=== PATIENT | male | born 1960 | race Caucasian/White ===

== ENCOUNTER 2024-11-24 12:54 | Inpatient (IN) | payer OTHER, SELFPAY ==
[2024-11-24] VITALS (23 sets, daily range): BP systolic 120–158; BP diastolic 73–104; BMI 32.2; BMI 31.2
[2024-11-24 11:43] LABS: % Basophils 0.9 % (0-2); % Eosinophils 5.2 % (0-6); % Immature Granulocytes 0.3 % (0-0.5); % Lymphocytes 18.3 % (20.5-51.1); % Monocytes 8.4 % (1.7-9.3); % Neutrophils 66.9 % (42.2-75.2); Absolute Basophils 0.1 10^3/uL (0-0.2); Absolute Eosinophils 0.5 10^3/uL (0-0.7); Absolute Lymphocytes 1.7 10^3/uL (1.2-3.4); Absolute Monocytes 0.8 10^3/uL (0.1-0.6); Absolute Neutrophils 6.3 10^3/uL (1.4-6.5); Hematocrit 47.8 % (39.0-52.0); Hemoglobin 15.5 g/dL (13.0-18.0); Mean Corp Hgb Conc. 32.4 g/dL (33.0-37.0); Mean Corpuscular Hgb 28.9 pg (27.0-31.0); Mean Platelet Volume 11.2 fL (7.4-10.4); Nucleated Red Blood Cells % 0 % (-); Platelet Count 171 10^3/uL (130-400); Red Blood Cell Count 5.37 10^6/uL (4.70-6.10); Red Cell Dist. Width 14.6 % (11.5-14.5); White Blood Cell Count 9.3 10^3/uL (4.8-10.8)
--- NOTE | 2024-11-24 11:47 | ED.GENMED ---
History of Present Illness
General
Chief Complaint: Chest Pain
Source: patient
Exam Limitations: none
Time Seen by Provider: 11/24/24 11:36
History of Present Illness
History of Present Illness:
64yoM with a history of coronary artery disease s/p PCI in 2007, hypertension, hyperlipidemia, diabetes, obesity presenting via EMS for evaluation of chest pain. Patient was shoveling mulch this morning around 9 AM when he had a sudden onset of
central chest pain. He states it feels like he was kicked in the chest. He did have some associated coughing. He denies any associated diaphoresis, nausea, dizziness, syncope, shortness of breath. Patient received aspirin and 3 doses of
nitroglycerin prehospital. Symptoms now mostly resolved but he continues to have a minor chest pressure.
Phy Exam
General Physical Exam
General Presentation: well appearing and no apparent distress
General age: appears stated age
General Skin: warm and dry
General Habitus: normal
General Mental: alert
ENT Exam
ENT Exam: normocephalic
Cardiovascular Exam
Cardiovascular Exam: regular rate/rhythm, no edema, no murmur and normal peripheral pulses (2+ radial and DP pulses bilaterally)
Pulmonary Exam
Pulmonary Exam: lungs clear, no respiratory distress, no rales, no crackles and no rhonchi
Neurological Exam
Neurological Exam: alert
Rifle Coma Scale
Eye Opening: Spontaneous
Verbal Response: Oriented
Motor Response: Obeys Commands
GCS Total Score: 15
Skin Exam
Skin Exam: normal color and warm/dry
Psychiatric Exam
Psychiatric Exam: normal mood/affect
Scores
Heart Score for Chest Pain Patients
STEMI patient?: No
History: Highly Suspicious
ECG: Significant ST-Depression
Age: >/= 65 years
Risk Factors: >/= 3 Risk Factors or History of CAD
Troponin: >1 - <3 x Normal Limit
Heart Score for Chest Pain Patients: 9
Heart Score Risk: 72.7 % MACE over next 6 weeks
Course
Orders/Labs/Results
Orders:
Orders
11/24/24 11:29
Electrocardiogram (*1) Urgent
Reason for Study: Chest Pain
Cardiac Monitoring- Treatment ONCE
EKG- Treatment ONCE
IV Insert/Care/Rem.- Treatment PRN
O2 Therapy [RESP] Urgent
Titrate/Wean O2 to maintain O2 sat greater than (%): 90
Special Instructions: Maintain sats >/=90%
Pulse Ox/spot Check [RESP] Urgent
Quantity: 1
Special Instructions: ON ROOM AIR
11/24/24 11:31
Complete Blood Count/With Diff Urgent
Comprehensive Metabolic Panel Urgent
Glycohemoglobin (HgbA1c) Urgent
NT-proBNP Urgent
Comment: ADD ON
Troponin I Urgent
11/24/24 11:46
CR Chest Portable - 1 View Urgent
Comment:
Reason For Exam: CP
Reason Study Needs to be Portable: Unable to Transport
11/24/24 11:50
Heparin 4,000 units IV NOW STA
Heparin Protocol- PTT Orders As Directed
PTT per Heparin protocol: -Obtain CBC and baseline PTT - if not already collected.
-Obtain PTT 6 hours from start of infusion. Then, every 6 hours until 2 consecutive
PTT's are therapeutic. Then, PTT Daily.
-With each rate change, obtain PTT every 6 hours until 2 consecutive PTT's are
therapeutic. Then, PTT Daily.
Notify MD As Directed
Notify physician if: PTT is greater than or equal to 200.
11/24/24 11:51
CARDIOLOGY CONSULT Urgent
Consulting Provider: Amrit Garcia
Was physician already notified: Yes
Nitroglycerin Sublingual [Nitrostat (Sublingual)] 0.4 mg SL [id number] PRN
11/24/24 11:56
PTT Urgent
Comment: Obtain baseline before beginning heparin infusion if not already collected
11/24/24 12:00
Heparin 5,000 units .ROUTE .STK-MED ONE
Heparin 83123 Units/250 ml 25,000 units in 250 ml .ROUTE .STK-MED
Heparin 63875 Units/250 ml 25,000 units in 250 ml IV PER PROTOCOL
Weight to be used for heparin protocol in kilograms (kg):: 107.7
Protocol:: Cardiac Tx/Acute Coronary
PTT Goal Range to be used:: PTT 73 to 111 seconds
Order type:: Initial
INITIAL Infusion Dose (UNITS/KG/hr) & then follow protocol:: 12 units/kg/hr
Infusion Dose in UNITS/hr & then follow protocol (UNITS/hr):: 1,000
INFUSION RATE in mL/hr & then follow protocol (mL/hr):: 10
PTT less than or equal to 64 seconds:: Increase rate by 200 units/hr (+ 2 mL/hr)
PTT 64.1 to 72.9 seconds:: Increase rate by 100 units/hr (+ 1 mL/hr)
PTT 73 to 111 seconds:: Target Range. No change in rate.
PTT 111.1 to 130.9 seconds:: Decrease rate by 100 units/hr (- 1 mL/hr)
PTT 131 to 199.9 seconds:: HOLD for 1 hr. Then decrease rate by 200 units/hr (- 2 mL/hr)
PTT greater than or equal to 200 seconds:: HOLD for 2 hrs & Notify Provider. Then decrease by 200 units/hr (-
2 mL/hr)
Lab follow-up:: Each change, PTT q6h until 2 consecutive are therapeutic. Then PTT
daily.
11/24/24 12:07
EKG [Electrocardiogram (*1)] Stat
Reason for Study: Chest Pain
11/24/24 12:09
Records Request [Obtain Records] As Directed
Dates of Information to be Released: Most recent
Type of Information Requested: ECG/Cardiology Results
Last Office Visit H&P
Obtain Records from: Dr. Fonseca
11/24/24 12:17
Heparin 1000 Units/500 ml [Heparin] 1,000 units in 500 ml .ROUTE .STK-MED
Heparin Sodium,Porcine/Ns/Pf [Heparin 2000 Units/1000 ml] 2,000 unit in 1,000 ml .ROUTE .STK-MED
Lidocaine HCl/Pf [Xylocaine-Mpf 1% Vial] 100 mg .ROUTE .STK-MED ONE
Nitroglycerin [Tridil] 1,500 mcg .ROUTE .STK-MED ONE
Verapamil Injectable [Isoptin/Verapamil Injection] 5 mg .ROUTE .STK-MED ONE
11/24/24 12:18
Add On- LAB Routine
Tests Added?: Hgba1c
11/24/24 12:27
0.9% Sodium Chloride 500 ml [Nss] 500 ml IV BOLUS
Fentanyl Citrate/Pf [Sublimaze] 100 mcg .ROUTE .STK-MED ONE
Heparin 10,000 units .ROUTE .STK-MED ONE
Midazolam HCl [Versed] 2 mg .ROUTE .STK-MED ONE
11/24/24 12:30
Admit/Transfer Patient As Directed
Co-Sign Provider:
Level of Care: Inpatient admission
Assign to:: Telemetry
Physician / Group: maribel
Diagnosis: chest pain
Reason for Telemetry: Chest Pain syndromes
Date to Stop Telemetry: 11/26/24
Time to Stop Telemetry: 11:00
Reason for Hospitalization: chest pain
Expected length of stay greater than two midnights?: Yes
ELOS- Estimated Length of Stay in days: 3
I certify the patient meets the requirements for IP care: Yes
PRN Pain Medication Management As Directed
May give lesser potent ordered pain med per pt: Yes
preference::
Protocol:: Medication orders for pain may be administered in a
manner that supports deferring to patient preference
when the pt is:
- Requesting an ordered lesser potent pain medication.
Least to most potent pain medications are defined
as: acetaminophen < NSAID < tramadol < opioids
(morphine, oxycodone, hydromorphone).
- Requesting a lesser dose of the same medication IF
ORDERED.
- Requesting a less intrusive route of administration
if both routes are prescribed by the provider (PO <
IV).
11/24/24 12:31
Code Status As Directed
Resuscitation Status: Full Code
11/24/24 18:00
PTT Urgent
11/26/24 06:00
Complete Blood Count/No Diff Q2D
Comment: Notify MD if platelet count is <130,000 or decreases by 50% from baseline
11/26/24 11:00
DC Protocol for Telemetry ONCE
11/28/24 06:00
Complete Blood Count/No Diff Q2D
Comment: Notify MD if platelet count is <130,000 or decreases by 50% from baseline
11/30/24 06:00
Complete Blood Count/No Diff Q2D
Comment: Notify MD if platelet count is <130,000 or decreases by 50% from baseline
12/02/24 06:00
Complete Blood Count/No Diff Q2D
Comment: Notify MD if platelet count is <130,000 or decreases by 50% from baseline
12/04/24 06:00
Complete Blood Count/No Diff Q2D
Comment: Notify MD if platelet count is <130,000 or decreases by 50% from baseline
12/06/24 06:00
Complete Blood Count/No Diff Q2D
Comment: Notify MD if platelet count is <130,000 or decreases by 50% from baseline
12/08/24 06:00
Complete Blood Count/No Diff Q2D
Comment: Notify MD if platelet count is <130,000 or decreases by 50% from baseline
12/10/24 06:00
Complete Blood Count/No Diff Q2D
Comment: Notify MD if platelet count is <130,000 or decreases by 50% from baseline
Abnormal Lab Results
11/24/24
11:31
MCHC 32.4 L g/dL
(33.0-37.0)
RDW 14.6 H %
(11.5-14.5)
MPV 11.2 H fL
(7.4-10.4)
Absolute Monos (auto) 0.8 H 10^3/uL
(0.1-0.6)
Lymphocytes % 18.3 L %
(20.5-51.1)
Chloride 109 H mmol/L
(98-107)
Creatinine 1.4 H mg/dL
(0.7-1.3)
Glucose 186 H mg/dl
(70-99)
Troponin I 0.040 H* ng/ml
11/24/24 11:31
11/24/24 11:31
Vital Signs
Initial and Last Documented VS:
Initial Vital Signs
Pulse Resp Pulse Ox
107 26 92
11/24/24 11:30 11/24/24 11:30 11/24/24 11:30
Last Documented Vital Signs
Temp Pulse Resp BP Pulse Ox
97.5 F 109 26 146/104 96
11/24/24 11:33 11/24/24 11:33 11/24/24 11:33 11/24/24 11:33 11/24/24 11:35
MDM/Problems Addressed
Differential Diagnosis Includes:
64yoM here with chest pain that began while doing yard work this morning. Described as feeling like he was kicked in the chest. Now improved after nitro x3 prehospital. Hx of CAD s/p PCI. He is mildly hypertensive with HR of 107 on arrival. He
appears comfortable in no distress. Equal pulses in all extremities. Differential diagnosis includes but is not limited to: ACS, accelerated angina, less likely PE
Initial ED plan: EKG on arrival shows ST/T wave changes in inferolateral leads. This was immediately sent to cardiology for review. Labs and CXR ordered per protocol.
*EKG
Interpreted by ED Provider?: Yes
EKG Intrepretation Date: 11/24/24
Heart Rate: 108
Rate: tachycardiac
Rhythm: sinus and PVC's
Clyde: normal axis
Interval: first degree heart block
Ischemia: non-specific ST changes (ST/T wave changes in inferolateral leads)
*Critical Care Note
Total Time (30-74mins, 75-104mins- exclusive of procedures): Not Applicable
Update Note
Update Note:
Troponin elevated at 0.04. Patient seen by cardiology and initiated on heparin drip. Patient transported to the geoscience laboratory technician for urgent catheterization.
ED Attending Note
-
Portions of this chart may have been created with voice recognition software.� Occasional wrong word or��sound alike� substitutions may have occurred due to the inherent limitations of voice recognition software.
Discharge Plan
Departure
Patient Disposition: Admit
Date of Disposition: 11/24/24
Time of Disposition: 12:10
Presentation/result/management discussed w/ accepting MD/DO: Hospitalist
Discharge Problem:
NSTEMI (non-ST elevated myocardial infarction)
Interventions
Interventions:
*Risk Screen - Suicide Last Done: 11/24/24 11:30
*General Assessment Last Done: 11/24/24 11:30
*Neglect/Abuse Screening Last Done: 11/24/24 11:30
*ED- Fall Risk Assessment Last Done: 11/24/24 11:34
*ED COVID-19 Vaccine History Last Done: 11/24/24 11:34
ED- Cardiac Assessment Last Done: 11/24/24 11:34
[2024-11-24 11:57] LABS: Glucose 186 mg/dl (70-99)
[2024-11-24 11:58] LABS: ALT (SGPT) 20 U/L (0-50); AST (SGOT) 18 U/L (17-59); Albumin 3.8 g/dl (3.5-5.0); Alkaline Phosphatase 105 U/L (38-126); Blood Urea Nitrogen 16 mg/dl (9-20); Calcium 9.8 mg/dl (8.4-10.2); Carbon Dioxide 24 mmol/L (22-30); Chloride 109 mmol/L (98-107); Estimated Creatinine Clearance 66 ml/min; Potassium 4.9 mmol/L (3.5-5.1); Sodium 142 mmol/L (135-145); Total Protein 6.3 g/dl (6.3-8.2); eGFR 55.43
[2024-11-24] MEDS: HEPARIN 4000 UNITS IV (12:02)
[2024-11-24] MEDS: HEPARIN 25000 UNITS/250 ML IV ×2 (12:08→19:51)
--- NOTE | 2024-11-24 12:11 | CON.CAR ---
Addendum entered and electronically signed by Amrit Garcia MD 11/24/24 14:14:
I saw and examined the patient.
The CUSTOM FEED CORN OPERATOR's note was reviewed and I agree with the note.
Comment: 64-year-old male (known to Dr. Fonseca, his primary towel stretcher), with CAD (STEMI with BMS to pRCA 2007), cardiomyopathy (ischemic versus mixed), [employer] ICD, hypertension, dyslipidemia, type 2 diabetes mellitus, CKD, and
hypothyroidism, who presented to the emergency department the chief complaint of chest pain. \\
- symptoms concerning for angina will plan for coronary angiography
Original Note:
Consultation
Consultation Request
Date/Time Consultation Requested: 11/24/2024 11:51
Date/Time Consultation Performed: 11/24/2024 12:00
Requesting Provider: Venessa Padgett PA-C
Performing Provider: OLIVIA Villarreal for Dr. Garcia
Reason for Consultation: Chest pain
Medical History
-
Chief Complaint: Chest pain
History of Present Illness:
Gabino Anderson is a 64-year-old male (known to Dr. Fonseca, his primary towel stretcher), with CAD (STEMI with BMS to pRCA 2007), cardiomyopathy (ischemic versus mixed), [employer] ICD, hypertension, dyslipidemia, type 2 diabetes mellitus,
CKD, and hypothyroidism, who presented to the emergency department the chief complaint of chest pain. He woke up in his usual state of health. He was picking up bags of mulch this morning when he had the sudden onset of severe chest discomfort.
He felt like he was 'kicked in the chest by a donkey'. He felt the need to sit down. He denies associated dizziness, diaphoresis, and nausea. The discomfort did not radiate, it remained midsternal and anterior. EMS was called. He received
aspirin and 3 doses of sublingual nitroglycerin prehospital. EKG in the emergency room showed lateral ST abnormality with IVCD. He was given a heparin bolus and started on a drip.
Records been requested by his primary towel stretcher.
Past Medical History
Past Medical History: Arrhythmias (VT (post STEMI, 2007)), CAD, CHF, HTN, Hypercholesterolemia, Hypothyroidism, NIDDM and Renal Failure (CKD)
Past Surgical History: Orthopedic
Social History
Tobacco: Non-Smoker
Alcohol: None
Drug: None
Personal:
Living: With Family
Family History
Family History: Reviewed & Not Pertinent
Allergies / Home Medications
Allergy/AdvReac Type Severity Reaction Status Date / Time
No Known Drug Allergies Allergy Unknown Verified 06/22/08 09:43
�Medication �Instructions �Recorded �Confirmed �Type
Motrin 2 - 3 tab PO PRN PAIN 06/22/08 06/22/08 History
atorvastatin 10 mg tablet (Lipitor) 10 mg PO DAILY 06/22/08 06/22/08 History
irbesartan 150 mg tablet 150 mg PO DAILY 06/22/08 06/22/08 History
levothyroxine 75 mcg tablet 75 mcg PO DAILY 06/22/08 06/22/08 History
(Synthroid)
Review of Systems
-
History Source: Patient
All other systems: Negative unless noted
Constitutional: No Symptoms
EENT: No Symptoms
Respiratory: No Symptoms
Cardiac: Chest Pain (See HPI)
Abdomen/GI: No Symptoms
: No Symptoms
Musculoskeletal: No Symptoms
Skin: No Symptoms
Neurological: No Symptoms
Endocrine: No Symptoms
Hematologic/Lymphatic: No Symptoms
Physical Exam
Vital Signs
Temp Pulse Resp BP Pulse Ox
97.5 F 109 26 146/104 96
11/24/24 11:33 11/24/24 11:33 11/24/24 11:33 11/24/24 11:33 11/24/24 11:35
Lab Results
11/24/24 11:31
11/24/24 11:31
Troponin I 0.040 ng/ml H* 04/22/25 11:31
Physical Exam
General: Well Developed, Well Nourished, No Apparent Distress and Comfortable
HEENT: Normocephalic, Anicteric and Moist Mucous Membranes
Respiratory: Clear and Non Labored Respirations
Cardiac: S1/S2 and Regular Rhythm (Tachycardia)
Breast: Deferred by me
GI: Soft, Non Tender, Non Distended and Normal Bowel Sounds
Rectal: Deferred by Provider
Genito-urinary: No Costovertebral Tender
Musculoskeletal: No Clubbing, No Cyanosis and No Edema
Skin: Warm and Dry
Neuro: AO x 3
Hematologic/Lymphatic: No Lymphadenopathy
Psych: Calm
Impression / Plan
-
I/P: 64M with CAD (STEMI with BMS to pRCA 2007), cardiomyopathy (ischemic versus mixed), [employer] ICD, hypertension, dyslipidemia, type 2 diabetes mellitus, CKD, and hypothyroidism, who presented to the emergency department the chief
complaint of chest pain.
Outpatient towel stretcher: Dr. Fonseca, records have been requested
NSTEMI
- Urgent cardiac catheterization
- EKG with lateral ischemia
- Heparin bolus with drip, ASA by EMS
- Fasting lipid panel in a.m., HgbA1c pending
- Defer P2Y12 to sales host
HFrEF, type unknown, EF unknown, chronic
- Suspect ischemic, could be mixed, LVEF was 45-50% in 2007 post STEMI
- He is not on the daily diuretic, reports stable weights but CXR with pronounced pulmonary vasculature
- GDMT as tolerated:
-FELA/ARB/ARNI: Entresto 97�103 mg
-SGLT2 inhibitor: Jardiance
-Aldosterone agonist: Can consider
-Beta adiel: Metoprolol tartrate, transition to succinate prior to discharge
-Isosorbide/Hydralazine:�
-ICD: Implanted ([employer])
- Trend daily weight, I/O
CAD
- BMS to pRCA (2007)
- Continue beta-adiel, aspirin, and statin
CKD
- Follow postcardiac catheterization dye
Uncontrolled type 2 diabetes mellitus with hyperglycemia
- Most recent HgbA1c greater than 8%, managed by his PCP
- Metformin on hold with cardiac catheterization
Ventricular tachycardia, post STEMI 2007, on beta-adiel
Dyslipidemia, goal LDL <55, fasting lipid panel in a.m.
[employer] ICD
Data Reviewed
-
EKG: Report Reviewed by me (As above)
Medical Tests (Nuc Med, Echo etc): Report Reviewed by me
Labs: Labs Reviewed by me
Old Records: Requested and Reviewed
--- NOTE | 2024-11-24 12:11 | HPS.HSE ---
Family Physician
-
Family Physician: OLIVIA Stoddard
Chief Complaint
-
mid sternum chest pain
History of Present Illness
64yoM with a history of coronary artery disease s/p PCI in 2007, hypertension, hyperlipidemia, diabetes, obesity presenting via EMS for evaluation of chest pain. Patient was moving and spreading mulch in his yard, when he felt mid sternum chest
pain. it was non radiating. he took nitro at home as well as on Ambulance. he does not have chest pain since then. patient denied sob. stated DE LEÓN after Nitro. denied dizzy or syncope.denied abdominal pain,n,v,d. denied fever, chills, cough
congestion.denied dysuria or hematuria. he took asa as well.
upon arrival noted to have ST elevation, elevated trop. heparin started in ER. plan for cardiac cath. admitting for further managment.
Medical History
Past Medical History
Past Medical History: Reports Other
Additional Past Medical History:
hypthyroidism
HTN
HLD
DM
CAD
Past Surgical History: Reports Other
Additional Past Surgical History:
AED
cardiac stents
shoulder surgery
Social History
Tobacco: Non-smoker
Alcohol: None
Drug: None
Personal:
Living: With Family
Family History
Family History: Not pertinent
Allergies / Home Medications
Allergies reflects when Allergies were last updated in [facility].
Home Medications with original date entered in [facility]
Allergy/Medication List:
Allergies
Allergy/AdvReac Type Severity Reaction Status Date / Time
No Known Drug Allergies Allergy Unknown Verified 06/22/08 09:43
Home Medications
Motrin 2 - 3 tab PO PRN PAIN 06/22/08
atorvastatin 10 mg tablet (Lipitor) 10 mg PO DAILY 06/22/08
irbesartan 150 mg tablet 150 mg PO DAILY 06/22/08
levothyroxine 75 mcg tablet (Synthroid) 75 mcg PO DAILY 06/22/08
Review of Systems
-
Constitutional: Reports No Symptoms
EENT: Reports No Symptoms
Respiratory: Reports No Symptoms
Cardiac: Reports Chest Pain
Abdomen/GI: Reports No Symptoms
: Reports No Symptoms
Musculoskeletal: Reports No Symptoms
Skin: Reports No Symptoms
Neurological: Reports No Symptoms
Endocrine: Reports No Symptoms
Hematologic/Lymphatic: Reports No Symptoms
Psych: Reports No Symptoms
Physical Exam
Vital Signs
Vital Signs
Temp Pulse Resp BP Pulse Ox
97.5 F 109 26 146/104 96
11/24/24 11:33 11/24/24 11:33 11/24/24 11:33 11/24/24 11:33 11/24/24 11:35
Physical Exam
General: Well Developed, Well Nourished and No Apparent Distress
HEENT: NormoCephalic, Moist mucous membranes and Atraumatic
Respiratory: Clear
Cardiac: S1/S2 and Regular Rhythm; No Murmur or Rub
GI: Soft, Non Tender, Non Distended and Normal Bowel Sounds; No Organomegaly
Rectal: Deferred by Provider
Musculoskeletal: No Clubbing, No Cyanosis and No Edema
Skin: No Rash
Neuro: AO x 3 and Nonfocal/grossly intact
Psych: Calm
Laboratory Results
-
11/24/24 11:31
11/24/24 11:31
Laboratory Results
Total Bilirubin 1.0 mg/dl (0.2-1.3) 11/24/24 11:31
AST 18 U/L (17-59) 11/24/24 11:31
ALT 20 U/L (0-50) 11/24/24 11:31
Alkaline Phosphatase 105 U/L (38-126) 11/24/24 11:31
Troponin I 0.040 ng/ml H* 11/24/24 11:31
Data Reviewed
-
Lab Data: Labs Reviewed by me
Impression/Plan
-
#chest pain possible NSTEMI
#tachycardia
#hxt of CAD s/p PCI in 2018
-EKG with ST elevations, sinus tachy with 1se degree A V block with occasional PVCs
-tro 0.04, trend trop
-heparin drip
-for cardiac cath today
-cardiology following
#acute kidney injury likely dehydration
-cr 1.4
-monitor BMP
-normal saline x1 bag
#type 2 DM
-sliding scale
-CHO diet
-hold metformin,Jardiance
#Essential HTN
#HLD
-statin continued
-metoprolol continued
-hold Entresto
#hypothyroidism
-levothyroxine continued
#DVT prophylaxis
-heparin drip
#CODE status
-full code
[2024-11-24 12:32] LABS: APTT 28.9 Sec (23.4-35.0)
--- NOTE | 2024-11-24 12:51 | W.PN.UPDATE ---
Update Note
Progress Note Update
This is an addendum to the H&P written by Yelena Weller on 11/24/2024.�
64-year-old male past medical history of CAD status post PCI in 2007, hypertension, hyperlipidemia, diabetes, obesity presenting with chest pain while shoveling mulch.� Symptoms mostly resolved now.
Vital signs normal apart from tachycardia
EKG shows sinus tachycardia with first-degree AV block, PVCs.� Troponin of 0.04.
Labs show creatinine of 1.4.
Patient with possible NSTEMI.� Also, with JESIKA possibly due to irbesartan/Motrin use.
Aspirin given by EMS.� Heparin drip started.� Trend troponins.� Nitroglycerin as needed.� Cardiology to take to catheterization today.� NPO.� Hold irbesartan.� Hold Motrin. IV fluid bolus.�
[2024-11-24 13:57] LABS: ACT-LR - POC 356 Seconds (116-155)
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
[2024-11-24 14:50] LABS: Glycohemoglobin (HgbA1c) 6.6 % (4.0-5.6)
[2024-11-24 14:53] LABS: NT-proBNP 3840 pg/ml
[2024-11-24 15:38] LABS: ACT-LR - POC 203 Seconds (116-155)
--- NOTE | 2024-11-24 15:44 | CARDSERVLU ---
Echocardiogram with Lumason completed after protocol screening completed. Allergies verified.
Patent IV site: _R forearm____
IV site flushed with 0.9% NaCl pre and post administration.
Diluted bolus method utilized to enhance visualization of ventricular gonzales.
Total volume given: __4__ mL
Patient tolerated all procedures well without complications.
[2024-11-24 16:38] LABS: ACT-LR - POC 165 Seconds (116-155)
[2024-11-24 17:00] LABS: Glucose - Point of Care 76 mg/dl (70-99)
[2024-11-24] MEDS: NOVOLOG FLEXPEN-LOW RESISTANCE SC (17:28)
--- NOTE | 2024-11-24 18:13 | ITS.CL.PN ---
Multiple Spindle Router Operator - Procedure Note
Procedure
Procedure Note:
CARDIAC CATHETERIZATION REPORT
Date of Procedure: 11/24/2024
Referring: Dr. Amrit Garcia MD
Indication: NSTEMI
PROCEDURE(S)
1. left heart catheterization
2. coronary angiography
3. iFR LCx
ACCESS:
1. 6F right radial artery (abandoned due to radial loop; closure: radial band)
2. 6F right common femoral artery (closure: 6F Angioseal after confirming appropriate DRYWALL METAL STUD WORKER stick location with hand injection angiography)
CATHETERS
1. 6F JR4
2. 6F JL4
3. 6F EBU4 guide
MODERATE SEDATION: 45 minutes of moderate sedation was utilized. An independent medical research tech was present to assist with and help manage the patient's level of consciousness and physiologic status.
HEMODYNAMIC DATA
LV 127/90 (EDP 26) mmHg
AO 128/88 (mean 105) mmHg
CORONARY ANGIOGRAPHY
Dominance: Right
LM: Large with minimal disease
LAD: Large vessel giving rise to a small D1, moderate caliber D2, and wrapping around the apex. There are serial subtotal occlusions just after D1 and after D2 with AURA I flow to the apex.
LCx: Large vessel giving rise to a large high rising OM1. The midportion of the larger branch of the OM1 has a focal 50% stenosis that was further assessed by iFR. There is also a small caliber OM2 with mild disease.
RCA: Large vessel giving rise to a moderate caliber RPDA and moderate caliber RPL branch. There is a stent in the mid RCA with focal 60% ISR and a smooth 40% stenosis in the distal RCA. The branch vessels have mild diffuse disease
iFR of OM1
An Omni wire was flushed and zeroed outside the body and then advanced to the left main. The wire introducer was removed and the catheter flushed with saline, after which pressure of the wire and guide were normalized. The wire was advanced to the
distal OM1 and iFR recorded at 0.88-0.89 on multiple measures. iFR pullback was performed noting a focal step up at the focal lesion site and then diffuse contribution from the proximal vessel. On return to the left main, iFR appropriately
normalized to ~1.0, confirming lack of wire drift.
RADIATION: dose 891 mGy; DAP 59.5 Gy*cm2; fluoroscopy time 13.9 min
CONCLUSIONS
1. Triple-vessel coronary artery disease with subtotally occluded LAD, likely customer support representative of a prior infarct, moderate serial RCA stenoses, and iFR positive stenosis in a large OM1. Given the patient's young age and diabetic status, surgical
revascularization may be preferable and he was taken off the table for CT surgical consultation. Percutaneous revascularization would be feasible and complete revascularization could be achieved percutaneously with moderate complexity.
2. Moderately elevated LV filling pressure and no aortic stenosis.
RECOMMENDATIONS
1. CT surgery consultation to determine optimal revascularization strategy
2. Echo in morning
3. Cont. asa, NO P2Y12 pending possible CT surgery
4. high intensity statin
5. can stop heparin drip after 48 hours
Copy to: Dr. Michael Fonseca DO (wind turbine service technician); OLIVIA Stoddard (PCP)
Signed: Adan Estes MD, PhD
--- NOTE | 2024-11-24 18:47 | PTCARENOTE ---
~1415: Received handoff report from [facility], awaiting transfer.
~6274-6592: patient transferred to IVU from [facility]. Admission questions completed. Pt AOx4, NSR 1st degree AVB on tele, 97% RA. R radial puncture site with TR band in place. R groin site with ART line and sheath remain. MAPs from ART and cuff correlate
and ART waveform appropriate. Pt denies pain at this time. Bed rest currently. EKG completed bedside. ACTs checked @ 1630 and was 203.
~4940-4429: Air removed from TR band per protocol. Discussed with Sondra Casas NP that Pt BP on ART line was SBP 140s-150s, but cuff pressures SBP 120s-130s, per SPORTS MARKETER we are going by cuff pressures and no other new orders at this time.
~7543-4856: 3 cc removed from TR band, no oozing or hematoma noted. ACT completed, result 165 at 1630. Request placed for CCL to pull sheath, awaiting response.
~1725: Sheath pulled by CCL nurse. 3 cc removed from TR band.
~1745: Hemostatis R groin achieved. Site soft CDI.
~1800: Went to remove TR band and noticed site was oozing a small amount, placed 3 cc back in band and will try again at 1830.
~1830: TR band removed. Dressing place, site soft no hematoma at this time. at bedside. All needs met at this time, call serrano within reach.
~1900: handoff report given to nightshift RN.
[2024-11-24 19:04] LABS: APTT 32.2 Sec (23.4-35.0)
[2024-11-24] MEDS: LOPRESSOR 50 MG PO (19:51)
--- NOTE | 2024-11-24 21:56 | PTCARENOTE ---
Received patient at change of shift. SR on the monitor, HR in the 70s. R radial and femoral dressings CDI. Heparin running as per protocol, see MAR. No complaints from pt at this time call serrano within reach.
[2024-11-24 22:32] LABS: Glucose - Point of Care 88 mg/dl (70-99)
[2024-11-25 00:43] VITALS: BP 143/87
[2024-11-25 02:19] VITALS: BP 144/95
[2024-11-25 03:06] LABS: INR 1.02; PT 13.7 Sec (11.4-14.6)
[2024-11-25 03:07] LABS: APTT 33.8 Sec (23.4-35.0)
[2024-11-25 03:18] LABS: ALT (SGPT) 19 U/L (0-50); AST (SGOT) 24 U/L (17-59); Albumin 3.8 g/dl (3.5-5.0); Alkaline Phosphatase 68 U/L (38-126); Blood Urea Nitrogen 14 mg/dl (9-20); Calcium 9.3 mg/dl (8.4-10.2); Carbon Dioxide 22 mmol/L (22-30); Chloride 111 mmol/L (98-107); Direct Bilirubin 0.2 mg/dl (0.0-0.4); Estimated Creatinine Clearance 70 ml/min; Glucose 92 mg/dl (70-99); HDL Cholesterol 24 mg/dl; LDL Cholesterol, Calculated 60 mg/dl; Potassium 4.1 mmol/L (3.5-5.1); Sodium 141 mmol/L (135-145); Total Bilirubin 1.5 mg/dl (0.2-1.3); Total Cholesterol 121 mg/dl (50-199); Triglyceride 187 mg/dl (10-149); Very Low Density Lipoprotein 37 mg/dl (0-30); eGFR > 60.00
[2024-11-25] MEDS: SYNTHROID 137 MCG PO (06:30)
[2024-11-25 07:59] LABS: Glucose - Point of Care 108 mg/dl (70-99)
[2024-11-25] MEDS: NOVOLOG FLEXPEN-LOW RESISTANCE SC ×3 (08:11→17:42)
[2024-11-25 08:12] VITALS: BP 147/98
[2024-11-25] MEDS: LOPRESSOR 50 MG PO ×2 (08:30→20:12)
[2024-11-25] MEDS: LIPITOR 80 MG PO (08:30)
[2024-11-25] MEDS: ASPIR LOW (ENTERIC COATED) 81 MG PO (08:30)
--- NOTE | 2024-11-25 09:17 | W.PN.CD ---
Today's Communication / Plan
-
CTS planning
cont meds
Impression / Plan
-
I/P: 64M with CAD (STEMI with BMS to pRCA 2007), cardiomyopathy (ischemic versus mixed), [employer] ICD, hypertension, dyslipidemia, type 2 diabetes mellitus, CKD, and hypothyroidism, who presented to the emergency department the chief
complaint of chest pain.
Outpatient guide winder: Dr. Fonseca, records have been requested
NSTEMI with multivessel CAD
- CTS consult; likely next week
- Heparin bolus with drip, ASA by EMS
- Fasting lipid panel in a.m., HgbA1c pending
HFrEF EF 20-25%
- Suspect ischemic, could be mixed, LVEF was 45-50% in 2007 post STEMI
- He is not on the daily diuretic, reports stable weights but CXR with pronounced pulmonary vasculature
- GDMT as tolerated:
-FELA/ARB/ARNI: Entresto 97�103 mg
-SGLT2 inhibitor: Jardiance
-Aldosterone agonist: Can consider after CTS
-Beta adiel: Metoprolol tartrate, transition to succinate prior to discharge
-Isosorbide/Hydralazine:�
-ICD: Implanted ([employer])
- Trend daily weight, I/O
CAD
- BMS to pRCA (2007)
- Continue beta-adiel, aspirin, and statin
CKD
- Follow postcardiac catheterization dye
Uncontrolled type 2 diabetes mellitus with hyperglycemia
- Most recent HgbA1c greater than 8%, managed by his PCP
- Metformin on hold with cardiac catheterization
Ventricular tachycardia, post STEMI 2007, on beta-adiel
Dyslipidemia, goal LDL <55, fasting lipid panel in a.m.
[employer] ICD
Coronary angiography November 24, 2024:
CONCLUSIONS
1. Triple-vessel coronary artery disease with subtotally occluded LAD, likely technical account representative of a prior infarct, moderate serial RCA stenoses, and iFR positive stenosis in a large OM1. Given the patient's young age and diabetic status, surgical
revascularization may be preferable and he was taken off the table for CT surgical consultation. Percutaneous revascularization would be feasible and complete revascularization could be achieved percutaneously with moderate complexity.
2. Moderately elevated LV filling pressure and no aortic stenosis.
TTE November 24, 2024: CONCLUSIONS
Moderately dilated LV with severely reduced systolic function.
LVEF is 20-25% by Lindsay's method of discs.
LAD territory hypo-/akinesis with global diffuse hypokinesis.
Stage I diastolic dysfunction suggestive of abnormal relaxation.
Normal right ventricular size and function.
No significant valvular disease.
Estimated pulmonary artery pressure of 25-30 mmHg. Assuming a right atrial
pressure of 3 mmHg.
Compared to prior from June 23, 2008, EF is now severely reduced at 20-25%,
previously normal, and with new wall motion abnormalities discussed above.
Physical Exam
Vital Signs/Labs
Vital Signs
Temp Pulse Resp BP Pulse Ox
97.6 F 84 18 147/98 95
11/25/24 08:10 11/25/24 08:30 11/25/24 08:10 11/25/24 08:30 11/25/24 08:10
11/24/24 11/25/24 11/26/24
06:59 06:59 06:59
Actual Weight 230 lb
11/25/24 02:44
PT 13.7 Sec (11.4-14.6) 11/25/24 02:44
INR 1.02 11/25/24 02:44
APTT 33.8 Sec (23.4-35.0) 11/25/24 02:44
APTT Cancelled 11/25/24 02:44
Triglycerides 187 mg/dl (10-149) H 11/25/24 02:44
LDL Cholesterol, Calc 60 mg/dl 11/25/24 02:44
VLDL Cholesterol, Calc 37 mg/dl (0-30) H 04/23/25 02:44
HDL Cholesterol 24 mg/dl 11/25/24 02:44
11/24/24
11:31
Aax-J-Umlvqfvmsls Pept 3840
LAB Results
11/24/24 11/24/24 11/24/24
11:31 15:37 18:46
Troponin I 0.040 H* 0.350 H* D 1.070 H* D
11/24/24 11/25/24
18:46 02:44
Troponin I Cancelled 1.380 H* D
Physical Exam
Constitutional: No acute distress and Comfortable
EENT: Anicteric
Cardiovascular: Rhythm & rate is regular and Pedal edema is absent
Respiratory: Respiratory effort normal and Lungs clear to auscul.
GI: Soft
Neuro/Psych: AO x 3
Data Reviewed
-
Date of Service: November 25, 2024
EKG: Tracing Personally Visualized and interpreted (sr)
Echo: Tracing Personally Visualized and interpreted and Report Reviewed by me
Labs: Labs Reviewed by me
[2024-11-25 11:06] LABS: Hematocrit 48.2 % (39.0-52.0); Hemoglobin 16.1 g/dL (13.0-18.0); Mean Corp Hgb Conc. 33.4 g/dL (33.0-37.0); Mean Corpuscular Hgb 28.9 pg (27.0-31.0); Mean Corpuscular Volume 86.5 fL (80.0-94.0); Mean Platelet Volume 11.1 fL (7.4-10.4); Platelet Count 167 10^3/uL (130-400); Red Blood Cell Count 5.57 10^6/uL (4.70-6.10); Red Cell Dist. Width 14.6 % (11.5-14.5); White Blood Cell Count 9.6 10^3/uL (4.8-10.8)
[2024-11-25 11:17] LABS: APTT 40.2 Sec (23.4-35.0)
[2024-11-25 11:27] VITALS: BP 131/86
[2024-11-25 11:29] VITALS: BP 145/94
--- NOTE | 2024-11-25 12:11 | W.PN.HOSP.TC ---
Today's Communication/Plan
-
pre-op testing and planning
continue IV heparin for now
Assessment / Plan
Assessment / Plan
Assessment:
Chest pain
NSTEMI with multivessel CAD
hx of CAD s/p PCI 2017
- trop peaked 1.38
- s/p LHC with triple vessel disease
- Cards following
- CT surgery evaluation; possible bypass planned pending OR availability. Pre-op testing under way
- continue IV heparin drip - requires intensive monitoring of PTTs
- continue ASA/BB/Statin
JESIKA
- resolved s/p 1 bag NSS
Type 2 DM
- holding Metformin/Jardiance
- continue SSI
- A1c: 6.6%
Essential HTN
- continue BP meds
HLD - statin
hypothyroidism
- levothyroxine
- CT with 8 mm L hemithyroid calcification. outpatient US.
DVT ppx: IV heparin
Code: Full
Anticipated Discharge: > 48 hours
Subjective/Interval History
-
Date of Service: November 25, 2024
denies CP or SOB
Objective Data
-
Labs:
Laboratory Results
11/25/24 11/25/24 11/25/24
02:44 02:44 10:55
WBC 9.6
Hgb 16.1
Hct 48.2
Plt Count 167
PT 13.7
INR 1.02
APTT 33.8 Cancelled 40.2 H
Sodium 141
Potassium 4.1
Chloride 111 H
Carbon Dioxide 22
BUN 14
Creatinine 1.3
Glucose 92
Calcium 9.3
Total Bilirubin 1.5 H
AST 24
ALT 19
Alkaline Phosphatase 68
11/25/24
17:30
WBC
Hgb
Hct
Plt Count
PT
INR
APTT Pending
Sodium
Potassium
Chloride
Carbon Dioxide
BUN
Creatinine
Glucose
Calcium
Total Bilirubin
AST
ALT
Alkaline Phosphatase
Vital Signs:
Vital Signs
Temp Pulse Resp BP Pulse Ox
98.5 F 71 18 145/94 98
11/25/24 11:50 11/25/24 11:45 11/25/24 11:50 11/25/24 11:29 11/25/24 11:50
I&O
11/24/24 11/25/24 11/26/24
06:59 06:59 06:59
Intake Total 480 / 480
Output Total 900 / 900 1000 / 1000
Balance -900 / -900 -520 / -520
Physical Exam
-
General: No Apparent Distress
HEENT: Normocephalic and Atraumatic
Respiratory: Negative Wheezes
Cardiac: Regular Rhythm
GI: Soft
Neuro: AO x 3
Hematologic / Lymphatic: No Lymphadenopathy
Psych: Calm
Data Reviewed
-
Total Time Spent with Patient (in minutes): 51
Labs: Labs Reviewed by me
--- NOTE | 2024-11-25 12:34 | CM ---
CM following for DC planning needs.
Met w/ patient at bedside to complete initial assessment.
Pt. informs that he resides w/ spouse in a private, 2 [facility], 1 [facility]. Pt. is retired. Functionally, patient is indep. ONLINE MARKETING STRATEGIST with ADLs, mobility without the use of any assisted device.
Pt. has RX plan and uses [facility] [address] in [facility].
Pt. awaiting CT Surg input to determine plan.
Will follow for DC planning needs.
--- NOTE | 2024-11-25 12:59 | W.PN.UPDATE ---
Update Note
Progress Note Update
continue ongoing pre-operative work up. Pending attending's surgical determination.
Procedure Type:�Isolated CABG
Perioperative Outcome Estimate %
Operative Mortality 2.77%
Morbidity & Mortality 12.4%
Stroke 1.56%
Renal Failure 2.17%
Reoperation 3.48%
Prolonged Ventilation 7.28%
Deep Sternal Wound Infection 0.202%
Long Hospital Stay (>14 days) 6.11%
Short Hospital Stay (<6 days)* 37.4%
Clinical Summary
Planned Surgery: Isolated CABG, Urgent, First cardiovascular surgery
Demographics: 64 year old, male, 104kg, 183cm, BMI: 31 kg/m�
Lab Values: Creatinine: 1.4 mg/dL, Hematocrit: 47.8%, WBC Count: 9.3 10�/�L, Platelet Count: 116325 cells/�L
PreOp Medications: Oral diabetes control
Substance Abuse: Never smoker, Alcohol use: <=1 drink/week
Risk Factors / Comorbidities: Diabetes Mellitus , Hypertension, Family Hx of CAD
Cardiac Status: Chronic heart failure, NYHA Class III, Ejection Fraction = 20%
Coronary Artery Disease: 3 vessels diseased, Non-ST Elevation CT, CT: 1 to 7 Days
Valve Disease: Trivial/Trace MR, Trivial/Trace TR
[2024-11-25 13:25] LABS: Glucose - Point of Care 149 mg/dl (70-99)
[2024-11-25 17:38] LABS: Glucose - Point of Care 137 mg/dl (70-99)
[2024-11-25 18:00] LABS: APTT 45.4 Sec (23.4-35.0)
[2024-11-25 20:14] VITALS: BMI 31.2
--- NOTE | 2024-11-25 21:15 | PTCARENOTE ---
Received patient at change of shift. SR with a first degree on the monitor, HR in the 80s. Heparin running as per protocol, see documentation. No complaints from pt at this time, call serrano within reach.
[2024-11-26] VITALS (7 sets, daily range): BP systolic 123–149; BP diastolic 75–95; BMI 30.9
[2024-11-26 00:29] LABS: APTT 69.5 Sec (23.4-35.0)
[2024-11-26] MEDS: SYNTHROID 137 MCG PO (06:08)
[2024-11-26 07:07] LABS: APTT 76.2 Sec (23.4-35.0)
[2024-11-26 07:18] LABS: ALT (SGPT) 27 U/L (0-50); AST (SGOT) 27 U/L (17-59); Albumin 4.7 g/dl (3.5-5.0); Alkaline Phosphatase 76 U/L (38-126); Blood Urea Nitrogen 21 mg/dl (9-20); Calcium 10.4 mg/dl (8.4-10.2); Carbon Dioxide 21 mmol/L (22-30); Chloride 107 mmol/L (98-107); Estimated Creatinine Clearance 69 ml/min; Glucose 110 mg/dl (70-99); Potassium 4.6 mmol/L (3.5-5.1); Sodium 142 mmol/L (135-145); Total Bilirubin 1.8 mg/dl (0.2-1.3); Total Protein 7.2 g/dl (6.3-8.2); eGFR > 60.00
[2024-11-26 07:54] LABS: Hematocrit 47.1 % (39.0-52.0); Hemoglobin 16.1 g/dL (13.0-18.0); Mean Corp Hgb Conc. 34.2 g/dL (33.0-37.0); Mean Corpuscular Volume 84.7 fL (80.0-94.0); Mean Platelet Volume 10.6 fL (7.4-10.4); Platelet Count 142 10^3/uL (130-400); Red Blood Cell Count 5.56 10^6/uL (4.70-6.10); Red Cell Dist. Width 14.6 % (11.5-14.5); White Blood Cell Count 6.9 10^3/uL (4.8-10.8)
[2024-11-26 07:58] LABS: Glucose - Point of Care 105 mg/dl (70-99)
[2024-11-26] MEDS: NOVOLOG FLEXPEN-LOW RESISTANCE SC ×3 (08:05→16:40)
[2024-11-26] MEDS: LOPRESSOR 50 MG PO ×2 (08:49→21:12)
[2024-11-26] MEDS: ASPIR LOW (ENTERIC COATED) 81 MG PO (08:49)
[2024-11-26] MEDS: LIPITOR 80 MG PO (08:49)
[2024-11-26] MEDS: HEPARIN 25000 UNITS/250 ML IV ×2 (09:52→23:35)
--- NOTE | 2024-11-26 10:16 | W.PN.HOSP.TC ---
Today's Communication/Plan
-
will d/w cards regarding IV Heparin timing; follow cards notes
continue pre-op testing/evaluation for proposed bypass surgery; follow CTS notes
Assessment / Plan
Assessment / Plan
Assessment:
Chest pain
NSTEMI with multivessel CAD
hx of CAD s/p PCI 2017
- trop peaked 1.38
- s/p LHC with triple vessel disease
- Cards following
- CT surgery evaluation; possible bypass planned pending OR availability. Pre-op testing under way
- continue IV heparin drip - requires intensive monitoring of PTTs
- continue ASA/BB/Statin
Ischemic cardiomyopathy with HFrEF
has history of ICD
- no acute CHF
- trend I/Os, weights, lytes
- continue GDMT: Entresto, Jardiance, BB
JESIKA
- resolved s/p 1 bag NSS
Type 2 DM
- holding Metformin
- holding Jardiance
- continue SSI
- A1c: 6.6%
Essential HTN
- continue BP meds
HLD - statin
hypothyroidism
- levothyroxine
- CT with 8 mm L hemithyroid calcification. outpatient US.
DVT ppx: IV heparin
Code: Full
Anticipated Discharge: > 48 hours
Subjective/Interval History
-
Date of Service: November 26, 2024
denies complaints such as cp or sob
resting comfortably
Objective Data
-
Labs:
Laboratory Results
11/26/24 11/26/24 11/26/24
00:10 06:39 13:30
WBC 6.9
Hgb 16.1
Hct 47.1
Plt Count 142
APTT 69.5 H 76.2 H Pending
Sodium 142
Potassium 4.6
Chloride 107
Carbon Dioxide 21 L
BUN 21 H
Creatinine 1.3
Glucose 110 H
Calcium 10.4 H
Total Bilirubin 1.8 H
AST 27
ALT 27
Alkaline Phosphatase 76
Vital Signs:
Vital Signs
Temp Pulse Resp BP Pulse Ox
97.8 F 75 20 137/91 98
11/26/24 07:46 11/26/24 08:00 11/26/24 07:46 11/26/24 07:46 11/26/24 07:46
I&O
11/25/24 11/26/24 11/27/24
06:59 06:59 06:59
Intake Total 480 / 480
Output Total 900 / 900 1000 / 1000
Balance -900 / -900 -520 / -520
Physical Exam
-
General: No Apparent Distress
HEENT: Normocephalic and Atraumatic
Respiratory: Negative Wheezes
Cardiac: Regular Rhythm and S1/S2
GI: Soft and Nontender
Musculoskeletal: No Edema
Neuro: AO x 3
Psych: Calm
Data Reviewed
-
Total Time Spent with Patient (in minutes): 51
Labs: Labs Reviewed by me
--- NOTE | 2024-11-26 10:23 | W.PN.CD ---
Today's Communication / Plan
-
Heparin gtt
CTS planning
Impression / Plan
-
I/P: 64M with [facility] cardiomyopathy (ischemic versus mixed), [employer] ICD, hypertension, dyslipidemia, type 2 diabetes mellitus, CKD, and hypothyroidism, who presented to the emergency department the chief
complaint of chest pain.
Outpatient city council member: Dr. Fonseca, records have been requested
NSTEMI with multivessel CAD
- CTS consult; likely next week
- Heparin gtt and aspirin
HFrEF EF 20-25%
- Suspect ischemic, could be mixed, LVEF was 45-50% in 2007 post STEMI
- He is not on the daily diuretic, reports stable weights but CXR with pronounced pulmonary vasculature
- GDMT as tolerated:
-FELA/ARB/ARNI: Entresto 97�103 mg
-SGLT2 inhibitor: Jardiance
-Aldosterone agonist: Can consider after CTS
-Beta adiel: Metoprolol tartrate, transition to succinate prior to discharge
-Isosorbide/Hydralazine:�
-ICD: Implanted ([employer])
- Trend daily weight, I/O
CAD
- BMS to pRCA (2007)
- Continue beta-adiel, aspirin, and statin
CKD
- stable
Dyslipidemia
- LDL 60 on atorvastatin
Uncontrolled type 2 diabetes mellitus with hyperglycemia Hgb A1c 6.6
- Most recent HgbA1c greater than 8%, managed by his PCP
- Metformin on hold with cardiac catheterization
Ventricular tachycardia, post STEMI 2007, on beta-adiel
Dyslipidemia, goal LDL <55, fasting lipid panel in a.m.
[employer] ICD
Subjective: no complaints feeling well
Coronary angiography November 24, 2024:
CONCLUSIONS
1. Triple-vessel coronary artery disease with subtotally occluded LAD, likely medical service representative of a prior infarct, moderate serial RCA stenoses, and iFR positive stenosis in a large OM1. Given the patient's young age and diabetic status, surgical
revascularization may be preferable and he was taken off the table for CT surgical consultation. Percutaneous revascularization would be feasible and complete revascularization could be achieved percutaneously with moderate complexity.
2. Moderately elevated LV filling pressure and no aortic stenosis.
TTE November 24, 2024: CONCLUSIONS
Moderately dilated LV with severely reduced systolic function.
LVEF is 20-25% by Lindsay's method of discs.
LAD territory hypo-/akinesis with global diffuse hypokinesis.
Stage I diastolic dysfunction suggestive of abnormal relaxation.
Normal right ventricular size and function.
No significant valvular disease.
Estimated pulmonary artery pressure of 25-30 mmHg. Assuming a right atrial
pressure of 3 mmHg.
Compared to prior from June 23, 2008, EF is now severely reduced at 20-25%,
previously normal, and with new wall motion abnormalities discussed above.
Physical Exam
Vital Signs/Labs
Vital Signs
Temp Pulse Resp BP Pulse Ox
97.8 F 75 20 137/91 98
11/26/24 07:46 11/26/24 08:00 11/26/24 07:46 11/26/24 07:46 11/26/24 07:46
11/25/24 11/26/24 11/27/24
06:59 06:59 06:59
Actual Weight 230 lb 227 lb 11.8 oz
11/26/24 06:39
11/26/24 06:39
PT 13.7 Sec (11.4-14.6) 11/25/24 02:44
INR 1.02 11/25/24 02:44
APTT 76.2 Sec (23.4-35.0) H 11/26/24 06:39
Triglycerides 187 mg/dl (10-149) H 11/25/24 02:44
LDL Cholesterol, Calc 60 mg/dl 11/25/24 02:44
VLDL Cholesterol, Calc 37 mg/dl (0-30) H 11/25/24 02:44
HDL Cholesterol 24 mg/dl 11/25/24 02:44
11/24/24
11:31
Fij-W-Llvvxpdderj Pept 3840
LAB Results
11/24/24 11/24/24 11/24/24
11:31 15:37 18:46
Troponin I 0.040 H* 0.350 H* D 1.070 H* D
11/24/24 11/25/24 11/25/24
18:46 02:44 10:55
Troponin I Cancelled 1.380 H* D 1.110 H*
Physical Exam
Constitutional: No acute distress and Comfortable
EENT: Anicteric
Cardiovascular: Rhythm & rate is regular and Pedal edema is absent
Respiratory: Respiratory effort normal and Lungs clear to auscul.
GI: Soft
Neuro/Psych: AO x 3
Data Reviewed
-
Date of Service: November 26, 2024
EKG: Tracing Personally Visualized and interpreted (sr)
Echo: Tracing Personally Visualized and interpreted and Report Reviewed by me
Labs: Labs Reviewed by me
[2024-11-26 12:20] LABS: Glucose - Point of Care 133 mg/dl (70-99)
--- NOTE | 2024-11-26 12:48 | CM ---
CM following for DC planning needs.
Antic. CT Surgery next week.
Met w/ patient + spouse at bedside to complete pre-op teaching.
Reviewed pre and post op routines.
Reviewed post op MD appointments, Cardiac Rehab, visit from CT Transitional Care RN.
Reviewed post op restrictions to include lifting, driving, flying and sternal precautions.
Plan is for CT Surg next wk.
Antic. DC plan is for home w/ CT Transitional Care RN.
CM to follow.
[2024-11-26 14:14] LABS: APTT 57.5 Sec (23.4-35.0)
[2024-11-26 16:36] LABS: Glucose - Point of Care 115 mg/dl (70-99)
[2024-11-26 21:26] LABS: APTT 88.1 Sec (23.4-35.0)
[2024-11-26 22:27] LABS: Glucose - Point of Care 95 mg/dl (70-99)
[2024-11-27] VITALS (8 sets, daily range): BP systolic 109–141; BP diastolic 75–96; BMI 30.8
--- NOTE | 2024-11-27 01:07 | PTCARENOTE ---
Assumed care of the pt @ 1900. Pt is AAOx3 SR on the monitor denies cp. Heparin gtt infusing @ 1900 units/HR Call serrano within reach.
[2024-11-27 03:40] LABS: Hematocrit 46.3 % (39.0-52.0); Hemoglobin 15.7 g/dL (13.0-18.0); Mean Corp Hgb Conc. 33.9 g/dL (33.0-37.0); Mean Corpuscular Hgb 29.1 pg (27.0-31.0); Mean Corpuscular Volume 85.9 fL (80.0-94.0); Mean Platelet Volume 10.4 fL (7.4-10.4); Platelet Count 154 10^3/uL (130-400); Red Blood Cell Count 5.39 10^6/uL (4.70-6.10); Red Cell Dist. Width 14.5 % (11.5-14.5); White Blood Cell Count 9.2 10^3/uL (4.8-10.8)
[2024-11-27 03:54] LABS: APTT 114.8 Sec (23.4-35.0)
[2024-11-27 04:45] LABS: ALT (SGPT) 42 U/L (0-50); AST (SGOT) 51 U/L (17-59); Alkaline Phosphatase 68 U/L (38-126); Blood Urea Nitrogen 25 mg/dl (9-20); Calcium 10.7 mg/dl (8.4-10.2); Carbon Dioxide 21 mmol/L (22-30); Chloride 108 mmol/L (98-107); Estimated Creatinine Clearance 65 ml/min; Glucose 108 mg/dl (70-99); Potassium 4.5 mmol/L (3.5-5.1); Sodium 140 mmol/L (135-145); Total Bilirubin 1.4 mg/dl (0.2-1.3); Total Protein 6.5 g/dl (6.3-8.2); eGFR 55.43
[2024-11-27] MEDS: SYNTHROID 137 MCG PO (05:42)
[2024-11-27] MEDS: ASPIR LOW (ENTERIC COATED) 81 MG PO (08:29)
[2024-11-27] MEDS: LIPITOR 80 MG PO (08:29)
[2024-11-27] MEDS: NOVOLOG FLEXPEN-LOW RESISTANCE SC ×3 (08:30→17:30)
[2024-11-27] MEDS: LOPRESSOR 50 MG PO (08:30)
[2024-11-27 08:31] LABS: Glucose - Point of Care 108 mg/dl (70-99)
--- NOTE | 2024-11-27 10:30 | W.PN.HOSP.TC ---
Today's Communication/Plan
-
continue IV heparin
await timing of surgery from CT surg service
Assessment / Plan
Assessment / Plan
Assessment:
Chest pain
NSTEMI with multivessel CAD
hx of CAD s/p PCI 2017
- trop peaked 1.38
- s/p LHC with triple vessel disease
- Cards following
- CT surgery evaluation; possible bypass planned pending OR availability. Pre-op testing under way
- continue IV heparin drip - requires intensive monitoring of PTTs. Continue through day of CABG per CTS/Cards
- continue ASA/BB/Statin
Ischemic cardiomyopathy with HFrEF
has history of ICD
- no acute CHF
- trend I/Os, weights, lytes
- continue GDMT: Entresto, Jardiance, BB
JESIKA
- resolved s/p 1 bag NSS
Type 2 DM
- holding Metformin
- holding Jardiance
- continue SSI
- A1c: 6.6%
Essential HTN
- continue BP meds
HLD - statin
hypothyroidism
- levothyroxine
- CT with 8 mm L hemithyroid calcification. outpatient US.
DVT ppx: IV heparin
Code: Full
Anticipated Discharge: > 48 hours
Subjective/Interval History
-
Date of Service: November 27, 2024
denies complaints such as cp or sob
resting comfortably
Objective Data
-
Labs:
Laboratory Results
11/27/24 11/27/24
03:26 10:55
WBC 9.2
Hgb 15.7
Hct 46.3
Plt Count 154
APTT 114.8 H Pending
Sodium 140
Potassium 4.5
Chloride 108 H
Carbon Dioxide 21 L
BUN 25 H
Creatinine 1.4 H
Glucose 108 H
Calcium 10.7 H
Total Bilirubin 1.4 H
AST 51
ALT 42
Alkaline Phosphatase 68
Vital Signs:
Vital Signs
Temp Pulse Resp BP Pulse Ox
97.7 F 70 16 139/95 100
11/27/24 07:47 11/27/24 08:30 11/27/24 07:47 11/27/24 08:30 11/27/24 07:47
I&O
11/26/24 11/27/24 11/28/24
06:59 06:59 06:59
Intake Total 480 / 480 480 / 480
Output Total 1000 / 1000
Balance -520 / -520 480 / 480
Physical Exam
-
General: No Apparent Distress
HEENT: Normocephalic and Atraumatic
Respiratory: Negative Wheezes
Cardiac: Regular Rhythm and S1/S2
GI: Soft and Nontender
Neuro: AO x 3
Psych: Calm
Data Reviewed
-
Total Time Spent with Patient (in minutes): 51
Labs: Labs Reviewed by me
--- NOTE | 2024-11-27 11:16 | W.PN.CD ---
Today's Communication / Plan
-
CTS Saturday
Metop to coreg today
Impression / Plan
-
I/P: 64M with CAD (STEMI with BMS to pRCA 2007), cardiomyopathy (ischemic versus mixed), [employer] ICD, hypertension, dyslipidemia, type 2 diabetes mellitus, CKD, and hypothyroidism, who presented to the emergency department the chief
complaint of chest pain.
Outpatient sequins winder: Dr. Fonseca, records have been requested
NSTEMI with multivessel CAD
- CTS consult; likely next week
- Heparin gtt and aspirin
HFrEF EF 20-25%
- Suspect ischemic, could be mixed, LVEF was 45-50% in 2007 post STEMI
- He is not on the daily diuretic, reports stable weights but CXR with pronounced pulmonary vasculature
- GDMT as tolerated:
-FELA/ARB/ARNI: Entresto 97�103 mg
-SGLT2 inhibitor: Jardiance
-Aldosterone agonist: Can consider after CTS
-Beta adiel: BP high switch to coreg 6.25 mg bid
-Isosorbide/Hydralazine:�
-ICD: Implanted ([employer])
- Trend daily weight, I/O
CAD
- BMS to pRCA (2007)
- Continue beta-adiel, aspirin, and statin
CKD
- stable
Dyslipidemia
- LDL 60 on atorvastatin
Uncontrolled type 2 diabetes mellitus with hyperglycemia Hgb A1c 6.6
- Most recent HgbA1c greater than 8%, managed by his PCP
- Metformin on hold with cardiac catheterization
Ventricular tachycardia, post STEMI 2007, on beta-adiel
Dyslipidemia, goal LDL <55, fasting lipid panel in a.m.
[employer] ICD
Subjective: no complaints feeling well
Coronary angiography November 24, 2024:
CONCLUSIONS
1. Triple-vessel coronary artery disease with subtotally occluded LAD, likely insurance sales representative of a prior infarct, moderate serial RCA stenoses, and iFR positive stenosis in a large OM1. Given the patient's young age and diabetic status, surgical
revascularization may be preferable and he was taken off the table for CT surgical consultation. Percutaneous revascularization would be feasible and complete revascularization could be achieved percutaneously with moderate complexity.
2. Moderately elevated LV filling pressure and no aortic stenosis.
TTE November 24, 2024: CONCLUSIONS
Moderately dilated LV with severely reduced systolic function.
LVEF is 20-25% by Lindsay's method of discs.
LAD territory hypo-/akinesis with global diffuse hypokinesis.
Stage I diastolic dysfunction suggestive of abnormal relaxation.
Normal right ventricular size and function.
No significant valvular disease.
Estimated pulmonary artery pressure of 25-30 mmHg. Assuming a right atrial
pressure of 3 mmHg.
Compared to prior from June 23, 2008, EF is now severely reduced at 20-25%,
previously normal, and with new wall motion abnormalities discussed above.
Physical Exam
Vital Signs/Labs
Vital Signs
Temp Pulse Resp BP Pulse Ox
97.9 F 70 20 139/95 98
11/27/24 11:11 11/27/24 08:30 11/27/24 11:11 11/27/24 08:30 11/27/24 11:11
11/26/24 11/27/24 11/28/24
06:59 06:59 06:59
Actual Weight 227 lb 11.8 oz 226 lb 10.163 oz
11/27/24 03:26
11/27/24 03:26
PT 13.7 Sec (11.4-14.6) 11/25/24 02:44
INR 1.02 11/25/24 02:44
APTT 114.8 Sec (23.4-35.0) H 11/27/24 03:26
Triglycerides 187 mg/dl (10-149) H 11/25/24 02:44
LDL Cholesterol, Calc 60 mg/dl 11/25/24 02:44
VLDL Cholesterol, Calc 37 mg/dl (0-30) H 11/25/24 02:44
HDL Cholesterol 24 mg/dl 11/25/24 02:44
11/24/24
11:31
Uyw-A-Jlhuyodmbxl Pept 3840
LAB Results
11/24/24 11/24/24 11/24/24
11:31 15:37 18:46
Troponin I 0.040 H* 0.350 H* D 1.070 H* D
11/24/24 11/25/24 11/25/24
18:46 02:44 10:55
Troponin I Cancelled 1.380 H* D 1.110 H*
Physical Exam
Constitutional: No acute distress and Comfortable
EENT: Anicteric
Cardiovascular: Rhythm & rate is regular and Pedal edema is absent
Respiratory: Respiratory effort normal and Lungs clear to auscul.
GI: Soft
Neuro/Psych: AO x 3
Data Reviewed
-
Date of Service: November 27, 2024
Medical Decision Making: Reviewed Test Results
EKG: Tracing Personally Visualized and interpreted (sr)
Echo: Report Reviewed by me
Labs: Labs Reviewed by me
[2024-11-27 11:57] LABS: Glucose - Point of Care 141 mg/dl (70-99)
--- NOTE | 2024-11-27 12:00 | PTCARENOTE ---
Received patient this am, ambulating in room, flavia. well. monitor shows NSR with PAC's, VSS. IV heparin @ 1800units/hr via left forearm without difficulties.
[2024-11-27 12:09] LABS: APTT 93.4 Sec (23.4-35.0)
[2024-11-27] MEDS: HEPARIN 25000 UNITS/250 ML IV (12:28)
--- NOTE | 2024-11-27 12:34 | CM ---
CM following for DC planning needs.
Met w/ patient at bedside. Pt. feels well, is anticipating CT Surgery on Saturday. Has no concerns or needs at this time.
Plan for CT Surgery on Saturday.
Antic. DC plan is for home w/ CT Transitional Care RN.
CM to follow.
--- NOTE | 2024-11-27 17:26 | PTCARENOTE ---
U/S of thyroid completed.
[2024-11-27 17:30] LABS: Glucose - Point of Care 105 mg/dl (70-99)
[2024-11-27 18:58] LABS: APTT 86.5 Sec (23.4-35.0)
[2024-11-27] MEDS: COREG 6.25 MG PO (20:08)
[2024-11-27 21:47] LABS: Glucose - Point of Care 133 mg/dl (70-99)
--- NOTE | 2024-11-27 23:47 | PTCARENOTE ---
Assumed care of the pt @ 1900. Pt aaox3, SR w/ PAC's on the monitor, HR 70's. Denies pain or SOB, O2 sat 97% RA. Hep gtt infusing via L FA at 1800 unit/hr. VSS. Ambulating in room w/o complaints of dizziness. Call serrano within reach.
[2024-11-28 03:29] VITALS: BP 143/91
[2024-11-28] MEDS: HEPARIN 25000 UNITS/250 ML IV (03:32)
[2024-11-28 04:15] LABS: APTT 84.6 Sec (23.4-35.0)
[2024-11-28 04:19] VITALS: BMI 30.6
[2024-11-28 04:48] LABS: Hematocrit 45.5 % (39.0-52.0); Hemoglobin 15.1 g/dL (13.0-18.0); Mean Corp Hgb Conc. 33.2 g/dL (33.0-37.0); Mean Corpuscular Hgb 28.8 pg (27.0-31.0); Mean Corpuscular Volume 86.7 fL (80.0-94.0); Mean Platelet Volume 10.9 fL (7.4-10.4); Platelet Count 141 10^3/uL (130-400); Red Blood Cell Count 5.25 10^6/uL (4.70-6.10); Red Cell Dist. Width 14.4 % (11.5-14.5); White Blood Cell Count 8.3 10^3/uL (4.8-10.8)
[2024-11-28 05:04] LABS: ALT (SGPT) 82 U/L (0-50); AST (SGOT) 67 U/L (17-59); Albumin 4.5 g/dl (3.5-5.0); Alkaline Phosphatase 78 U/L (38-126); Blood Urea Nitrogen 28 mg/dl (9-20); Calcium 10.5 mg/dl (8.4-10.2); Carbon Dioxide 21 mmol/L (22-30); Chloride 105 mmol/L (98-107); Estimated Creatinine Clearance 60 ml/min; Glucose 107 mg/dl (70-99); Potassium 4.2 mmol/L (3.5-5.1); Sodium 141 mmol/L (135-145); Total Bilirubin 1.4 mg/dl (0.2-1.3); Total Protein 6.7 g/dl (6.3-8.2); eGFR 51.03
[2024-11-28] MEDS: SYNTHROID 137 MCG PO (05:45)
[2024-11-28 08:14] VITALS: BP 138/82
[2024-11-28 08:17] LABS: Glucose - Point of Care 112 mg/dl (70-99)
[2024-11-28] MEDS: LIPITOR 80 MG PO (08:33)
[2024-11-28] MEDS: ASPIR LOW (ENTERIC COATED) 81 MG PO (08:33)
[2024-11-28] MEDS: COREG 6.25 MG PO (08:33)
[2024-11-28] MEDS: NOVOLOG FLEXPEN-LOW RESISTANCE SC ×3 (08:33→16:57)
--- NOTE | 2024-11-28 08:55 | PTCARENOTE ---
Assumed care. patient with no complaints of pain or shortness of breath. Heparin infusing at 1800 units/hr. Walking independently to and from the bathroom, now in the chair. SR on tele HR in 70's, BP 138/82. ABO collected, call serrano in reach
--- NOTE | 2024-11-28 09:03 | W.PN.CD ---
Today's Communication / Plan
-
Increase Coreg to 12.5 mg bid
CTS saturday
Impression / Plan
-
I/P: 64M with [facility] cardiomyopathy (ischemic versus mixed), [employer] ICD, hypertension, dyslipidemia, type 2 diabetes mellitus, CKD, and hypothyroidism, who presented to the emergency department the chief
complaint of chest pain.
Outpatient customer success advocate: Dr. Fonseca, records have been requested
NSTEMI with multivessel CAD
- CTS consult; likely next week
- Heparin gtt and aspirin
HFrEF EF 20-25%
- Suspect ischemic, could be mixed, LVEF was 45-50% in 2007 post STEMI
- He is not on the daily diuretic, reports stable weights but CXR with pronounced pulmonary vasculature
- GDMT as tolerated:
-FELA/ARB/ARNI: Entresto 97�103 mg
-SGLT2 inhibitor: Jardiance
-Aldosterone agonist: Can consider after CTS
-Beta adiel: Increase coreg to 12.5 mg bid
-Isosorbide/Hydralazine:�
-ICD: Implanted ([employer])
- Trend daily weight, I/O
CAD
- BMS to pRCA (2007)
- Continue beta-adiel, aspirin, and statin
CKD
- stable
Dyslipidemia
- LDL 60 on atorvastatin
Uncontrolled type 2 diabetes mellitus with hyperglycemia Hgb A1c 6.6
- Most recent HgbA1c greater than 8%, managed by his PCP
- Metformin on hold with cardiac catheterization
Ventricular tachycardia, post STEMI 2007, on beta-adiel
Dyslipidemia, goal LDL <55, fasting lipid panel in a.m.
[employer] ICD
Subjective: no complaints feeling well
Coronary angiography November 24, 2024:
CONCLUSIONS
1. Triple-vessel coronary artery disease with subtotally occluded LAD, likely technical sales representatives of a prior infarct, moderate serial RCA stenoses, and iFR positive stenosis in a large OM1. Given the patient's young age and diabetic status, surgical
revascularization may be preferable and he was taken off the table for CT surgical consultation. Percutaneous revascularization would be feasible and complete revascularization could be achieved percutaneously with moderate complexity.
2. Moderately elevated LV filling pressure and no aortic stenosis.
TTE November 24, 2024: CONCLUSIONS
Moderately dilated LV with severely reduced systolic function.
LVEF is 20-25% by Lindsay's method of discs.
LAD territory hypo-/akinesis with global diffuse hypokinesis.
Stage I diastolic dysfunction suggestive of abnormal relaxation.
Normal right ventricular size and function.
No significant valvular disease.
Estimated pulmonary artery pressure of 25-30 mmHg. Assuming a right atrial
pressure of 3 mmHg.
Compared to prior from June 23, 2008, EF is now severely reduced at 20-25%,
previously normal, and with new wall motion abnormalities discussed above.
Physical Exam
Vital Signs/Labs
Vital Signs
Temp Pulse Resp BP Pulse Ox
97.3 F 72 18 138/82 97
11/28/24 08:17 11/28/24 08:30 11/28/24 08:17 11/28/24 08:14 11/28/24 08:17
11/27/24 11/28/24 11/29/24
06:59 06:59 06:59
Actual Weight 226 lb 10.163 oz 225 lb 12.054 oz
11/28/24 03:35
11/28/24 03:35
PT 13.7 Sec (11.4-14.6) 11/25/24 02:44
INR 1.02 11/25/24 02:44
APTT 84.6 Sec (23.4-35.0) H 11/28/24 03:35
Triglycerides 187 mg/dl (10-149) H 11/25/24 02:44
LDL Cholesterol, Calc 60 mg/dl 11/25/24 02:44
VLDL Cholesterol, Calc 37 mg/dl (0-30) H 11/25/24 02:44
HDL Cholesterol 24 mg/dl 11/25/24 02:44
11/24/24
11:31
Bdq-U-Wssmfsfmzxg Pept 3840
LAB Results
11/25/24
10:55
Troponin I 1.110 H*
Physical Exam
Constitutional: No acute distress and Comfortable
EENT: Anicteric
Cardiovascular: Rhythm & rate is regular and Pedal edema is absent
Respiratory: Respiratory effort normal and Lungs clear to auscul.
GI: Soft
Neuro/Psych: AO x 3
Data Reviewed
-
Date of Service: November 28, 2024
Medical Decision Making: Reviewed Test Results
EKG: Tracing Personally Visualized and interpreted (sr)
Echo: Tracing Personally Visualized and interpreted and Report Reviewed by me
Labs: Labs Reviewed by me
--- NOTE | 2024-11-28 09:11 | W.PN.UPDATE ---
Update Note
Progress Note Update
CARDIAC SURGERY ATTENDING:
It was my pleasure to meet with Mr. Gabino Anderson and his yesterday at bedside. I have independently reviewed his medical history and available imaging. I believe he will benefit from surgical coronary revascularization. Given his
significantly reduced left ventricular ejection fraction, I also believe it is prudent to plan for central Impella 5.5 placement for periprocedural support. I will reassess this impression based on his intraoperative GILMAR immediately preoperatively.
We discussed the planned operative interventions, the associated operative risks (including, but not limited to, , stroke, VT, arrhythmia, PPM requirement, PNA, JESIKA/F, bleeding, infection, and the need for additional operative interventions),
reviewed the expected in-hospital postprocedural course, and discussed expected outpatient recovery. All questions were answered to the best of my abilities. The patient is agreeable to proceed. Informed consent has been obtained.
Will plan to proceed to the OR this coming 11/30/2024.
Please call with any questions or concerns.
Thank you for the opportunity to participate in the care of this kind gentleman.
Garrett Martinez MD
[phone]
[2024-11-28 11:31] VITALS: BP 110/88
--- NOTE | 2024-11-28 11:32 | W.PN.HOSP.TC ---
Today's Communication/Plan
-
OR Saturday
Assessment / Plan
Assessment / Plan
Assessment:
Chest pain
NSTEMI with multivessel CAD
hx of CAD s/p PCI 2017
- trop peaked 1.38
- s/p LHC with triple vessel disease
- Cards following
- CT surgery evaluation; bypass scheduled 11/30
- continue IV heparin drip - requires intensive monitoring of PTTs.
- continue ASA/BB/Statin
Ischemic cardiomyopathy with HFrEF
has history of ICD
- no acute CHF
- trend I/Os, weights, lytes
- continue GDMT: Entresto, Jardiance, BB
JESIKA
- resolved s/p 1 bag NSS
Type 2 DM
- holding Metformin
- holding Jardiance
- continue SSI
- A1c: 6.6%
Essential HTN
- continue BP meds
HLD - statin
hypothyroidism
- levothyroxine
- CT with 8 mm L hemithyroid calcification. outpatient US.
DVT ppx: IV heparin
Code: Full
Anticipated Discharge: > 48 hours
Subjective/Interval History
-
Date of Service: November 28, 2024
feeling well no complaints
Objective Data
-
Labs:
Laboratory Results
11/28/24
03:35
WBC 8.3
Hgb 15.1
Hct 45.5
Plt Count 141
APTT 84.6 H
Sodium 141
Potassium 4.2
Chloride 105
Carbon Dioxide 21 L
BUN 28 H
Creatinine 1.5 H
Glucose 107 H
Calcium 10.5 H
Total Bilirubin 1.4 H
AST 67 H
ALT 82 H
Alkaline Phosphatase 78
Vital Signs:
Vital Signs
Temp Pulse Resp BP Pulse Ox
97.3 F 72 18 138/82 97
11/28/24 08:17 11/28/24 08:30 11/28/24 08:17 11/28/24 08:14 11/28/24 08:17
I&O
11/27/24 11/28/24 11/29/24
06:59 06:59 06:59
Intake Total 480 / 480 480 / 480 480 / 480
Balance 480 / 480 480 / 480 480 / 480
Physical Exam
-
General: No Apparent Distress
HEENT: Normocephalic and Atraumatic
Respiratory: Negative Wheezes
Cardiac: Regular Rhythm and S1/S2
GI: Soft and Nontender
Neuro: AO x 3
Hematologic / Lymphatic: No Lymphadenopathy
Psych: Calm
Data Reviewed
-
Total Time Spent with Patient (in minutes): 51
Labs: Labs Reviewed by me
[2024-11-28 13:04] LABS: Glucose - Point of Care 136 mg/dl (70-99)
[2024-11-28 15:46] VITALS: BP 102/78
[2024-11-28 16:57] LABS: Glucose - Point of Care 139 mg/dl (70-99)
[2024-11-28 19:33] VITALS: BP 134/78
[2024-11-28] MEDS: COREG 12.5 MG PO (19:39)
[2024-11-28 22:07] LABS: Glucose - Point of Care 150 mg/dl (70-99)
[2024-11-28 22:08] VITALS: BP 135/81
[2024-11-29] VITALS (7 sets, daily range): BP systolic 100–150; BP diastolic 69–96; BMI 30.3
--- NOTE | 2024-11-29 00:36 | PTCARENOTE ---
Rec'd pt. at beginning of shift AAOx3, VSS, NSR on the monitor. No complaints of chest pain/discomfort, heparin drip infusing at 1800 units/hr. Pt. independent and ambulatory in room, currently sleeping.
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
[2024-11-29 04:18] LABS: Hematocrit 45.4 % (39.0-52.0); Hemoglobin 15.2 g/dL (13.0-18.0); Mean Corp Hgb Conc. 33.5 g/dL (33.0-37.0); Mean Corpuscular Hgb 29.2 pg (27.0-31.0); Mean Corpuscular Volume 87.3 fL (80.0-94.0); Mean Platelet Volume 11.4 fL (7.4-10.4); Platelet Count 161 10^3/uL (130-400); Red Cell Dist. Width 14.4 % (11.5-14.5); White Blood Cell Count 9.4 10^3/uL (4.8-10.8)
[2024-11-29 04:37] LABS: APTT 115.3 Sec (23.4-35.0)
[2024-11-29 04:45] LABS: ALT (SGPT) 92 U/L (0-50); AST (SGOT) 57 U/L (17-59); Albumin 4.7 g/dl (3.5-5.0); Alkaline Phosphatase 76 U/L (38-126); Blood Urea Nitrogen 28 mg/dl (9-20); Calcium 10.1 mg/dl (8.4-10.2); Carbon Dioxide 24 mmol/L (22-30); Chloride 104 mmol/L (98-107); Estimated Creatinine Clearance 56 ml/min; Glucose 113 mg/dl (70-99); Potassium 4.5 mmol/L (3.5-5.1); Sodium 142 mmol/L (135-145); Total Bilirubin 1.5 mg/dl (0.2-1.3); Total Protein 7.2 g/dl (6.3-8.2); eGFR 47.23
[2024-11-29] MEDS: HEPARIN 25000 UNITS/250 ML IV ×2 (05:02→19:46)
[2024-11-29] MEDS: SYNTHROID 137 MCG PO (05:03)
[2024-11-29 08:36] LABS: Glucose - Point of Care 116 mg/dl (70-99)
[2024-11-29] MEDS: ASPIR LOW (ENTERIC COATED) 81 MG PO (08:45)
[2024-11-29] MEDS: COREG 12.5 MG PO ×2 (08:45→19:50)
[2024-11-29] MEDS: NOVOLOG FLEXPEN-LOW RESISTANCE SC ×2 (08:45→17:53)
[2024-11-29] MEDS: LIPITOR 80 MG PO (08:45)
--- NOTE | 2024-11-29 09:41 | PTCARENOTE ---
Assumed care at 0700. Patient anxious, plan of care reviewed, offered reassurance. NSR with 1st degree HB in the 70's. Heparin infusing per protocol, call serrano in reach
[2024-11-29 11:21] LABS: APTT 114.6 Sec (23.4-35.0)
--- NOTE | 2024-11-29 12:14 | W.PN.HOSP.TC ---
Today's Communication/Plan
-
CABG in AM
continue IV Heparin
Assessment / Plan
Assessment / Plan
Assessment:
Chest pain
NSTEMI with multivessel CAD
hx of CAD s/p PCI 2017
- trop peaked 1.38
- s/p LHC with triple vessel disease
- Cards following
- CT surgery evaluation; bypass scheduled 11/30
- continue IV heparin drip - requires intensive monitoring of PTTs.
- continue ASA/BB/Statin
Ischemic cardiomyopathy with HFrEF
has history of ICD
- no acute CHF
- trend I/Os, weights, lytes
- continue GDMT: Entresto, Jardiance, BB
JESIKA
- resolved s/p 1 bag NSS
Type 2 DM
- holding Metformin
- holding Jardiance
- continue SSI
- A1c: 6.6%
Essential HTN
- continue BP meds
HLD - statin
hypothyroidism
- levothyroxine
- CT with 8 mm L hemithyroid calcification. outpatient US.
DVT ppx: IV heparin
Code: Full
Anticipated Discharge: > 48 hours
Subjective/Interval History
-
Date of Service: November 29, 2024
resting comfortably, no complaints
Objective Data
-
Labs:
Laboratory Results
11/29/24 11/29/24 11/29/24
04:02 11:03 18:00
WBC 9.4
Hgb 15.2
Hct 45.4
Plt Count 161
APTT 115.3 H 114.6 H Pending
Sodium 142
Potassium 4.5
Chloride 104
Carbon Dioxide 24
BUN 28 H
Creatinine 1.6 H
Glucose 113 H
Calcium 10.1
Total Bilirubin 1.5 H
AST 57
ALT 92 H
Alkaline Phosphatase 76
Vital Signs:
Vital Signs
Temp Pulse Resp BP Pulse Ox
97.6 F 73 20 116/72 95
11/29/24 07:10 11/29/24 10:00 11/29/24 07:10 11/29/24 07:09 11/29/24 07:23
I&O
11/28/24 11/29/24 11/30/24
06:59 06:59 06:59
Intake Total 480 / 480 960 / 960
Balance 480 / 480 960 / 960
Physical Exam
-
General: No Apparent Distress
HEENT: Normocephalic and Atraumatic
Respiratory: Negative Wheezes
Cardiac: Regular Rhythm and S1/S2
GI: Soft and Nontender
Musculoskeletal: No Edema
Neuro: AO x 3
Psych: Calm
Data Reviewed
-
Total Time Spent with Patient (in minutes): 51
Labs: Labs Reviewed by me
--- NOTE | 2024-11-29 12:40 | W.PN.CD ---
Today's Communication / Plan
-
Monitor renal fxn
Impression / Plan
-
I/P: 64M with CAD (STEMI with BMS to pRCA 2007), cardiomyopathy (ischemic versus mixed), [employer] ICD, hypertension, dyslipidemia, type 2 diabetes mellitus, CKD, and hypothyroidism, who presented to the emergency department the chief
complaint of chest pain.
Outpatient oil field pumper: Dr. Fonseca, records have been requested
NSTEMI with multivessel CAD
- CTS consult; likely next week
- Heparin gtt and aspirin
HFrEF EF 20-25%
- Suspect ischemic, could be mixed, LVEF was 45-50% in 2007 post STEMI
- He is not on the daily diuretic, reports stable weights but CXR with pronounced pulmonary vasculature
- GDMT as tolerated:
-FELA/ARB/ARNI: Entresto 97�103 mg
-SGLT2 inhibitor: Jardiance
-Aldosterone agonist: Can consider after CTS
-Beta adiel: Increase coreg to 12.5 mg bid
-Isosorbide/Hydralazine:�
-ICD: Implanted ([employer])
- Trend daily weight, I/O
CAD
- BMS to pRCA (2007)
- Continue beta-adiel, aspirin, and statin
CKD
- increasing monitor
Dyslipidemia
- LDL 60 on atorvastatin
Uncontrolled type 2 diabetes mellitus with hyperglycemia Hgb A1c 6.6
- Most recent HgbA1c greater than 8%, managed by his PCP
- Metformin on hold with cardiac catheterization
Ventricular tachycardia, post STEMI 2007, on beta-adiel
Dyslipidemia, goal LDL <55, fasting lipid panel in a.m.
[employer] ICD
Subjective: no complaints feeling well
Coronary angiography November 24, 2024:
CONCLUSIONS
1. Triple-vessel coronary artery disease with subtotally occluded LAD, likely new accounts banking representative of a prior infarct, moderate serial RCA stenoses, and iFR positive stenosis in a large OM1. Given the patient's young age and diabetic status, surgical
revascularization may be preferable and he was taken off the table for CT surgical consultation. Percutaneous revascularization would be feasible and complete revascularization could be achieved percutaneously with moderate complexity.
2. Moderately elevated LV filling pressure and no aortic stenosis.
TTE November 24, 2024: CONCLUSIONS
Moderately dilated LV with severely reduced systolic function.
LVEF is 20-25% by Lindsay's method of discs.
LAD territory hypo-/akinesis with global diffuse hypokinesis.
Stage I diastolic dysfunction suggestive of abnormal relaxation.
Normal right ventricular size and function.
No significant valvular disease.
Estimated pulmonary artery pressure of 25-30 mmHg. Assuming a right atrial
pressure of 3 mmHg.
Compared to prior from June 23, 2008, EF is now severely reduced at 20-25%,
previously normal, and with new wall motion abnormalities discussed above.
Physical Exam
Vital Signs/Labs
Vital Signs
Temp Pulse Resp BP Pulse Ox
97.3 F 73 20 116/72 97
11/29/24 12:27 11/29/24 10:00 11/29/24 12:27 11/29/24 07:09 11/29/24 12:27
11/28/24 11/29/24 11/30/24
06:59 06:59 06:59
Actual Weight 225 lb 12.054 oz 222 lb 14.197 oz
11/29/24 04:02
11/29/24 04:02
PT 13.7 Sec (11.4-14.6) 11/25/24 02:44
INR 1.02 11/25/24 02:44
APTT 114.6 Sec (23.4-35.0) H 11/29/24 11:03
Triglycerides 187 mg/dl (10-149) H 11/25/24 02:44
LDL Cholesterol, Calc 60 mg/dl 11/25/24 02:44
VLDL Cholesterol, Calc 37 mg/dl (0-30) H 11/25/24 02:44
HDL Cholesterol 24 mg/dl 11/25/24 02:44
11/24/24
11:31
Tve-L-Ikvwdbjjcge Pept 3840
Physical Exam
Constitutional: No acute distress and Comfortable
EENT: Anicteric
Cardiovascular: Rhythm & rate is regular and Pedal edema is absent
Respiratory: Respiratory effort normal and Lungs clear to auscul.
GI: Soft
Neuro/Psych: AO x 3
Data Reviewed
-
Date of Service: November 29, 2024
Medical Decision Making: Reviewed Test Results
EKG: Tracing Personally Visualized and interpreted (sr)
Echo: Report Reviewed by me
Labs: Labs Reviewed by me
[2024-11-29 13:12] LABS: Glucose - Point of Care 183 mg/dl (70-99)
[2024-11-29] MEDS: NOVOLOG FLEXPEN-LOW RESISTANCE 1 UNITS SC (13:12)
[2024-11-29 17:45] LABS: Glucose - Point of Care 109 mg/dl (70-99)
--- NOTE | 2024-11-29 19:30 | PTCARENOTE ---
Assumed care on pt @ 1900, hep gtt infusing at 16ml/hr via R AC, remains pain free, denies SOB. NSR on the monitor w/ 1st HR block, HR 70's. Ambulates in the room w/o any complaints. Call serrano within reach. POC ongoing.
[2024-11-29 21:57] LABS: Glucose - Point of Care 114 mg/dl (70-99)
--- NOTE | 2024-11-29 22:22 | PTCARENOTE ---
CV OR prep completed, CV PA made aware and in the room to check pt.
--- NOTE | 2024-11-29 23:33 | PTCARENOTE ---
grinding room inspector data control clerk supervisor made aware that pt needs to be seen for preop assessment.
[2024-11-30] VITALS (13 sets, daily range): BP systolic 81–137; BP diastolic 57–90; BMI 29.9
[2024-11-30 01:00] LABS: APTT 92.3 Sec (23.4-35.0)
[2024-11-30 05:02] LABS: Hematocrit 44.3 % (39.0-52.0); Hemoglobin 14.9 g/dL (13.0-18.0); Mean Corp Hgb Conc. 33.6 g/dL (33.0-37.0); Mean Corpuscular Volume 86.2 fL (80.0-94.0); Mean Platelet Volume 11.4 fL (7.4-10.4); Platelet Count 152 10^3/uL (130-400); Red Blood Cell Count 5.14 10^6/uL (4.70-6.10); Red Cell Dist. Width 14.3 % (11.5-14.5); White Blood Cell Count 7.8 10^3/uL (4.8-10.8)
[2024-11-30 05:23] LABS: ALT (SGPT) 84 U/L (0-50); AST (SGOT) 49 U/L (17-59); Albumin 4.5 g/dl (3.5-5.0); Alkaline Phosphatase 78 U/L (38-126); Blood Urea Nitrogen 25 mg/dl (9-20); Calcium 10.1 mg/dl (8.4-10.2); Carbon Dioxide 23 mmol/L (22-30); Chloride 105 mmol/L (98-107); Estimated Creatinine Clearance 60 ml/min; Glucose 112 mg/dl (70-99); Potassium 4.5 mmol/L (3.5-5.1); Sodium 141 mmol/L (135-145); Total Bilirubin 1.5 mg/dl (0.2-1.3); Total Protein 6.9 g/dl (6.3-8.2); eGFR 51.03
[2024-11-30 05:34] LABS: APTT 95.4 Sec (23.4-35.0)
[2024-11-30 05:56] LABS: Glucose - Point of Care 117 mg/dl (70-99)
[2024-11-30] MEDS: BACTROBAN 2% OINTMENT 1 APPLIC NASAL ×2 (06:00→19:57)
[2024-11-30] MEDS: COREG 12.5 MG PO (06:00)
[2024-11-30] MEDS: PROTONIX 40 MG PO (06:00)
[2024-11-30] MEDS: MAGNESIUM OXIDE 500 MG PO (06:00)
[2024-11-30] MEDS: SYNTHROID PO (06:15)
[2024-11-30 07:35] LABS: ACT+ - POC 123 Seconds (82-134)
--- NOTE | 2024-11-30 07:36 | W.PN.CD ---
Today's Communication / Plan
-
to OR for CABG
Impression / Plan
-
I/P: 64M with [facility] ICM s/p [employer] ICD, hypertension, dyslipidemia, type 2 diabetes mellitus, CKD, and hypothyroidism, who presented to the emergency department the chief complaint of chest pain.
Outpatient custodial operations manager: Dr. Fonseca
NSTEMI with multivessel CAD
- plan for OR today with grafts to the PDA, OM, and LAD, likely with Impella 5.5 placed prior to leaving the OR given severely reduced EF with plan to wean over several days post op (d/w CTS Dr. Lane Frey)
- cont. asa and start Plavix post-op as able
- can stop heparin after OR
HFrEF EF 20-25%
- Suspect ischemic, could be mixed, LVEF was 45-50% in 2007 post STEMI
- He is not on the daily diuretic, reports stable weights but CXR with pronounced pulmonary vasculature and elevated LVEDP on cath
- GDMT as tolerated:
-FELA/ARB/ARNI: Entresto 97�103 mg (restart as able post op)
-SGLT2 inhibitor: Jardiance (restart as able post op)
-Aldosterone agonist: Can consider after CTS
-Beta adiel: coreg to 12.5 mg bid
-Isosorbide/Hydralazine:�
-ICD: Implanted ([employer])
- Trend daily weight, I/O
CAD
- BMS to pRCA (2007)
- Continue beta-adiel, aspirin, and statin
CKD
- monitor
Dyslipidemia
- LDL 60 on atorvastatin, would benefit from more aggressive lipid lowering with goal LDL at least <55
Uncontrolled type 2 diabetes mellitus with hyperglycemia Hgb A1c 6.6
- Most recent HgbA1c greater than 8%, managed by his PCP
- Metformin on hold
Ventricular tachycardia, post STEMI 2007, on beta-adiel
Dyslipidemia, goal LDL <55
[employer] ICD
Subjective: to OR for CABG
Coronary angiography November 24, 2024:
CONCLUSIONS
1. Triple-vessel coronary artery disease with subtotally occluded LAD, likely investment representative of a prior infarct, moderate serial RCA stenoses, and iFR positive stenosis in a large OM1. Given the patient's young age and diabetic status, surgical
revascularization may be preferable and he was taken off the table for CT surgical consultation. Percutaneous revascularization would be feasible and complete revascularization could be achieved percutaneously with moderate complexity.
2. Moderately elevated LV filling pressure and no aortic stenosis.
TTE November 24, 2024: CONCLUSIONS
Moderately dilated LV with severely reduced systolic function.
LVEF is 20-25% by Lindsay's method of discs.
LAD territory hypo-/akinesis with global diffuse hypokinesis.
Stage I diastolic dysfunction suggestive of abnormal relaxation.
Normal right ventricular size and function.
No significant valvular disease.
Estimated pulmonary artery pressure of 25-30 mmHg. Assuming a right atrial
pressure of 3 mmHg.
Compared to prior from June 23, 2008, EF is now severely reduced at 20-25%,
previously normal, and with new wall motion abnormalities discussed above.
Physical Exam
Vital Signs/Labs
Vital Signs
Temp Pulse Resp BP Pulse Ox
36.6 C 77 18 137/89 95
11/30/24 04:50 11/30/24 06:00 11/30/24 04:50 11/30/24 06:00 11/30/24 04:50
11/29/24 11/30/24 12/01/24
06:59 06:59 06:59
Actual Weight 101.1 kg 100 kg
11/30/24 04:34
11/30/24 04:34
PT 13.7 Sec (11.4-14.6) 11/25/24 02:44
INR 1.02 11/25/24 02:44
APTT 95.4 Sec (23.4-35.0) H 11/30/24 04:34
Triglycerides 187 mg/dl (10-149) H 11/25/24 02:44
LDL Cholesterol, Calc 60 mg/dl 11/25/24 02:44
VLDL Cholesterol, Calc 37 mg/dl (0-30) H 11/25/24 02:44
HDL Cholesterol 24 mg/dl 11/25/24 02:44
11/24/24
11:31
Wue-X-Vyimhuaptip Pept 3840
Data Reviewed
-
Date of Service: November 30, 2024
Medical Decision Making: Reviewed Test Results and Review of Case with other Provider
Labs: Labs Reviewed by me
[2024-11-30 07:52] LABS: Urine Albumin 2+ (Neg - Trace); Urine Bilirubin Negative (Negative); Urine Character Clear (Clear); Urine Color Yellow; Urine Glucose 4+ (Negative); Urine Ketone 1+ (Negative); Urine Leukocyte Negative (Negative); Urine Nitrite Negative (Negative); Urine Occult Blood Negative (Negative); Urine Urobilinogen Negative (Neg - 1+)
[2024-11-30 08:18] LABS: Urine Mucus Few
[2024-11-30 08:21] LABS: Urine Bacteria Moderate (Negative)
[2024-11-30 09:32] LABS: ACT+ - POC 533 Seconds (82-134)
[2024-11-30 09:58] LABS: B.E. - POC -3.2 mmol/L; Glucose - POC 134 mg/dl (70-99); HCO3 - POC 22 mmol/L (21-28); Hematocrit - POC 41 % PCV (42-52); Hemodilution- POC No; Hemoglobin Calculated - POC 13.9; Ionized Calcium - POC 1.21 mmol/L (1.15-1.33); Lactate - POC 0.58 mmol/L (0.36-0.75); O2 Saturation %Calculated-POC 96.8 % (94-98); PCO2 - POC 41 mmHg (35-48); PO2 - POC 93 mmHg (83-108); Potassium - POC 4.1 mmol/L (3.5-5.1); Sodium - POC 140 mmol/L (136-145); Specimen Type - POC Arterial; pH - POC 7.35 (7.35-7.45)
[2024-11-30 10:06] LABS: ACT+ - POC 497 Seconds (82-134)
[2024-11-30 11:04] LABS: ACT+ - POC 575 Seconds (82-134)
--- NOTE | 2024-11-30 11:12 | CM ---
pt in OR today, cm to follow.
[2024-11-30 11:20] LABS: B.E. - POC -2.2 mmol/L; Glucose - POC 177 mg/dl (70-99); HCO3 - POC 24 mmol/L (21-28); Hematocrit - POC 34 % PCV (42-52); Hemodilution- POC Yes; Hemoglobin Calculated - POC 11.6; Ionized Calcium - POC 1.03 mmol/L (1.15-1.33); Lactate - POC 0.95 mmol/L (0.36-0.75); O2 Saturation %Calculated-POC 99.8 % (94-98); PCO2 - POC 48 mmHg (35-48); PO2 - POC 247 mmHg (83-108); Potassium - POC 5.4 mmol/L (3.5-5.1); Sodium - POC 138 mmol/L (136-145); Specimen Type - POC Arterial; pH - POC 7.31 (7.35-7.45)
[2024-11-30 11:31] LABS: ACT+ - POC 489 Seconds (82-134)
[2024-11-30 12:11] LABS: ACT+ - POC 675 Seconds (82-134)
[2024-11-30] MEDS: ASPIR LOW (ENTERIC COATED) PO (13:00)
[2024-11-30] MEDS: LIPITOR PO (13:00)
[2024-11-30] MEDS: NOVOLOG FLEXPEN-LOW RESISTANCE SC ×2 (13:00)
[2024-11-30 13:04] LABS: B.E. - POC -1.2 mmol/L; Glucose - POC 198 mg/dl (70-99); HCO3 - POC 24 mmol/L (21-28); Hematocrit - POC 35 % PCV (42-52); Hemodilution- POC Yes; Hemoglobin Calculated - POC 11.7; Ionized Calcium - POC 1.04 mmol/L (1.15-1.33); Lactate - POC 0.38 mmol/L (0.36-0.75); O2 Saturation %Calculated-POC 99.9 % (94-98); PCO2 - POC 43 mmHg (35-48); PO2 - POC 319 mmHg (83-108); Potassium - POC 4.9 mmol/L (3.5-5.1); Sodium - POC 137 mmol/L (136-145); Specimen Type - POC Arterial; pH - POC 7.36 (7.35-7.45)
[2024-11-30 13:08] LABS: ACT+ - POC 112 Seconds (82-134)
[2024-11-30] MEDS: NEURONTIN PO ×3 (13:39→21:49)
[2024-11-30] MEDS: NOVOLOG FLEXPEN SC ×2 (13:39→15:03)
[2024-11-30] MEDS: TYLENOL PO (13:39)
--- NOTE | 2024-11-30 13:58 | W.CVOR.SURPR ---
CV[facility] Surgeon Immed Pre Op
-
I have examined this patient prior to performance of the scheduled procedure.
The patient's condition is unchanged from the time of the dictated/written History and
Physical and the patient is able to undergo the scheduled procedure.
--- NOTE | 2024-11-30 13:59 | W.IMMPOSTOP ---
Addendum entered and electronically signed by Garrett Martinez MD 11/30/24 15:10:
[id number]
ADDENDUM:
Please ADD procedure:
Exclusion of KIMBERLY w/ 45mm AtriClip
Original Note:
Surgical Immed Post Op Note
-
CARDIAC SURGERY OPERATIVE NOTE:
Preoperative Dx:
MVCAD s/p STEMI w/ BMS to pRCA in 2007, currently w/ NSTEMI
Cardiomyopathy w/ reduced LVEF (20-25%) - ischemic/mixed - s/p AICD ([employer])
HTN/HLD
Type II DM
CKD
Hypothroidism
Postoperative Dx:
Same
Procedures:
1) Median sternotomy
2) Takedown of HUI (narrow pedicle)
3) Endoscopic harvest/prep of RLE GSV
4) CPB w/ subsequent placement of 10mm hemashield graft on distal right-side of ascending aorta
5) CABG x 3 (HUI to LAD, GSV to OM, GSV to RPDA)
6) Aortotomy w/ direct, central placement of IMPELLA 5.5 LVAD
7) Institution of Impella Support (P-3; 2.5L/min) w/ concurrent wean from CPB support
Surgeon:
Garrett Martinez M.D.
Assistants:
Alice Crum PVitaliyAVitaliy-Karl; wheelchair van operator first responder throughout
Rhea Ny P.A.-C.; endoscopic harvest/prep of RLE GSV
Anesthesia:
Syd Be M.D. and Nimco Whitten
Perfusion:
Ramya Zee C.C.P.; XC:
Findings:
HUI was healthy conduit w/ very brisk blood flow; ELD 2.5mm
GSV was healthy condut w/ normal gonzales; ELD 3.5-4.0mm
LAD was visible on the epicardial surface, dense calcifications throughout, anastomosis performed at distal midpoint; ELD 2.75mm
OM was intramyocardial under approximately 2mm of myocardium, scattered calcifications, ELD 4.00mm
RPDA was visible on the epicardial surface, dense calcifications throughout, ELD 2.50mm
Ascending aorta with scant calcifications at STJ, otherwise no sig calcifications
Impella 5.5 placed under direct visualization w/ ideal position obtained w/ GILMAR adjustment
GILMAR: LVEF 30-35%, well decompressed LV w/ good Impella position, no sig valvular pathology
AICD turned off prior to incision, AICD turned on and interrogated post sternal closure
Implants:
Hemashield [place] graft 10mm; SN: [id number]
Impella 5.5; SN: [id number]
CT x 4 (B/L pleural, inferior mediastinal, superior mediastinal)
Sternal wires x 10
Complications:
None
Transfusions:
None
Condition:
Sinus 70 (1.6/1.0); 103/61; 38/27; CVP 17; CO/CI: 7.0/3.2
GTTS: levophed 6, epi 2, precedex 0.5, insulin 1
Guarded to CVICU
CTs w/ no significant output over first 30min while in OR
[2024-11-30 14:12] LABS: B.E. - POC -2.4 mmol/L; Glucose - POC 161 mg/dl (70-99); HCO3 - POC 23 mmol/L (21-28); Hematocrit - POC 31 % PCV (42-52); Hemodilution- POC Yes; Hemoglobin Calculated - POC 10.4; Ionized Calcium - POC 1.22 mmol/L (1.15-1.33); Lactate - POC 1.29 mmol/L (0.36-0.75); O2 Saturation %Calculated-POC 99.1 % (94-98); PCO2 - POC 43 mmHg (35-48); PO2 - POC 143 mmHg (83-108); Potassium - POC 4.3 mmol/L (3.5-5.1); Sodium - POC 141 mmol/L (136-145); Specimen Type - POC Arterial; pH - POC 7.35 (7.35-7.45)
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
--- NOTE | 2024-11-30 14:30 | PTCARENOTE ---
Received patient from [facility] at 1425. Patient intubated and sedated on precedex gtt. Pt unresponsive. PERRLA 3mm brisk. POX 94% SIMV 60% 14 500 5/5. Pt not breathing over the ventilator. Mediastinal chest tubes x2 y-sited to 1 atrium to -20cm suction
draining red fluid. Right and left pleural chest tubes y-sited to 1 atrium to -20cm suction draining red fluid. +Tidaling. No air leak, or crepitus. SR with 1st degree AVB and RBBB on tele with rates in the 70s. BP supported with levo & epi gtts.
+Rub. No wires. Impella 5.5 to P3, CT ASBESTOS BRAKE LINING FINISHER HELPER at bedside, and increased to P4. CI 1.97. PA pressures 38-42/18-24. CVP 8-12. Bilateral radial and DP pulses palpable. No edema noted. Abdomen soft, round, obese, nontender. Hypoactive BS. Schneider catheter
intact draining adequate amounts of clear yellow urine. Right IJ cordis with swan floated to 48cm. Left radial que intact with appropriate waveform. All lines flushed, leveled, zeroed. Right AC 18g PIV and Left AC 20g PIV intact. Impella 5.5 exit
site right neck at 35 cm. with 2.9L/min flow at P4. Exit site covered with antibacterial dressing. Sternal incision covered with Antibacterial dressing, CDI. Chest tubes covered, dressing CDI. Right groin puncture site approximated, with skin glue,
MEDICAL COLLECTIONS. Right knee incision approximated with skin glue, FELA CDI. See MAR for medication administration. See worklist for complete nursing assessment. Post op EKG, labs, and CXR completed.
[2024-11-30 14:34] LABS: B.E. - POC 0.5 mmol/L; Glucose - POC 215 mg/dl (70-99); HCO3 - POC 26 mmol/L (21-28); Hematocrit - POC 36 % PCV (42-52); Hemodilution- POC Yes; Hemoglobin Calculated - POC 12.2; Ionized Calcium - POC 1.15 mmol/L (1.15-1.33); Lactate - POC < 0.30 mmol/L (0.36-0.75); O2 Saturation %Calculated-POC 99.9 % (94-98); PCO2 - POC 45 mmHg (35-48); PO2 - POC 333 mmHg (83-108); Potassium - POC 5.7 mmol/L (3.5-5.1); Sodium - POC 134 mmol/L (136-145); Specimen Type - POC Arterial; pH - POC 7.37 (7.35-7.45)
[2024-11-30 14:38] LABS: Glucose - Point of Care 160 mg/dl (70-99)
[2024-11-30 14:41] LABS: B.E. -3.6 mmol/L; HCO3 22.7 mmol/L (21-28); Ionized Calcium 1.19 mMOL/L (1.15-1.33); O2 Saturation % 98.2 % (94-98); PCO2 45 mmHg (35-48); PO2 89 mmHg (83-108); Potassium 4.7 mMOL/L (3.5-5.1); Sodium 134 mMOL/L (136-145); pH 7.31 (7.35-7.45)
--- NOTE | 2024-11-30 14:42 | W.PN.UPDATE ---
Addendum entered and electronically signed by OLIVIA Iraheta 11/30/24 16:07:
add to operative procedure: KIMBERLY #45mm clip
Original Note:
Update Note
Progress Note Update
64-year-old male was admitted on 11/24/2024 for exertional chest pain and ruled in for NSTEMI.
Past medical history significant for CAD with prior ID and BMS to RCA (2007), hypertension, hyperlipidemia, type 2 diabetes, chronic kidney disease, hypothyroidism, ischemic cardiomyopathy with [employer] ICD.
Left heart catheter reported triple-vessel coronary disease with echo confirming acute on chronic HF R EF (20-25%).
Intake: 4300
Output: 1700
Blood:� none
Wires:�
Inotropes:� Epi @ 2
Pressors:� Levophed @ 6
Sedatives:� Precedex @ 0.5
�
NEURO: sedated, pupils +Xmm B/L
RESP: #8OT @23cm> 500/60%/14/5. Lungs clear B/L. 2 mediastinal (5cc on arrival) and R/L pleural (0cc on arrival) chest tubes to -20cm suction. Sanguineous drainage, no airleak, no crepitus
CV: RRR +S1, S2, no S3, no�rub, no murmur. Aquacellto median sternotomy. RIJ w/[place] locked @ 45cm. PA 45/28; CVP 14; C.O 4.98/CI 1.97. Central Impella 5.5 tunneled under right subclavian @ locked @ 25cm. P3 w/bicarb purge
ABD: round, soft, no BS
EXT: no edema, +2/4 DP pulses B/L, no femoral bruit, RLE FELA wrap intact; left radial A-line intact
: Schneider with clear yellow urine
�
A/P: POD #0 s/p CABG x 3 (HUI to LAD, GSV to OM, GSV to RPDA), aortotomy w/ direct, central placement of IMPELLA 5.5 LVAD
GILMAR: EF�21% pre, improved to 30-35% post with inotropes and MCS
# Acute cardiogenic shock with mechanical cardiac support
# Ischemic cardiomyopathy
- wean and extubate
- maintain MAP>60 TORR
- wean Levo
- keep Low dose Epi
- No systemic IV Heparin, maintain bicarbonate Inpella purge
- plan for Impella removal in 48-72 hours
- trend LDH, lactic acid
# CAD
- will require ASA, Plavix, high intensity statin, beta-adiel
�
# acute surgical blood loss anemia-expected
- trend CBC
�
# T2DM (A1C 6.6)
- insulin infusion x 48h
- Consult to diabetes nurse practitioner
- Home regimen includes Trulicity, Jardiance, Metformin, Prandin
�
# Hypothyroidism
- will resume Levothyroxine when tolerating oral intake�
[2024-11-30 14:43] LABS: Hematocrit 32.3 % (39.0-52.0); Platelet Count 134 10^3/uL (130-400)
[2024-11-30 14:49] LABS: Mixed Venous O2 Saturation 67.5 %
[2024-11-30 14:50] LABS: INR 1.26; PT 16.1 Sec (11.4-14.6)
[2024-11-30 14:51] LABS: APTT 33.5 Sec (23.4-35.0)
[2024-11-30 14:52] LABS: Blood Urea Nitrogen 23 mg/dl (9-20); Estimated Creatinine Clearance 57 ml/min; Glucose 157 mg/dl (70-99); LDH 387 U/L (120-246); Lactic Acid 1.2 mmol/L (0.7-2.0)
[2024-11-30 14:53] LABS: D-Dimer 0.31 ug/mlFEU (0.00-0.50)
[2024-11-30] MEDS: NSS 500 IV (15:02)
[2024-11-30] MEDS: PACERONE PO (15:03)
[2024-11-30] MEDS: SODIUM BICARBONATE 1025 MEQ INF CATH (15:03)
[2024-11-30] MEDS: ANCEF 10 IV ×2 (15:03)
--- NOTE | 2024-11-30 15:39 | PN.DE.MGMTRT ---
Insulin Management
- -
11/30/2024: Diabetes Management Consult
64 year old male was admitted on 11/24/2024 for exertional chest pain and ruled in for NSTEMI.
PMH: CAD/[place]/PCI 2007, ICM, HTN, HLD, CKD, hypothyroidism, Obesity and T2DM.
[facility] reported significant triple-vessel coronary disease with echo confirming acute on chronic HF R EF (20-25%). P
Prior to admission was taking Metformin 1000 mg BID, Jardiance 25mg daily, repaglinide 0.5mg TID and Trulicity 75mg weekly.
A1C 6.6%, Cr 1.4, eGFR 57.
Patient was in the OR at the time of my visit. Patient to receive glycemic protocol insulin infusion s/p OR x48 hrs.
Will follow up tomorrow. Discussed with nurse.
Diabetes History
- -
Type of Diabetes: 2
Pre-Admission Diabetes Regimen
11/30/24 11/30/24
04:34 14:28
Creatinine 1.5 H 1.4 H
Lab Results
Hemoglobin A1c 6.6 % (4.0-5.6) H 11/24/24 11:31
Insulin Pump Settings
IP Diabetes Regimen
11/29/24 11/29/24 11/30/24
17:44 21:55 04:34
Glucose 112 H
POC Glucose 109 H 114 H
11/30/24 11/30/24
05:54 14:28
Glucose 157 H
POC Glucose 117 H 160 H
Meal type: Dinner
Amount consumed: 100%
Patient Education
[2024-11-30 15:55] LABS: Glucose - Point of Care 184 mg/dl (70-99)
--- NOTE | 2024-11-30 16:00 | PTCARENOTE ---
CT SECRETARIAL TEACHER at bedside. Impella down to P3. Notified of CI 1.91. No new orders. Pt over breathing the vent, but does not awaken to voice. Precedex titrated off per orders.
[2024-11-30 16:01] LABS: B.E. -5.2 mmol/L; O2 Saturation % 98.3 % (94-98); PCO2 37 mmHg (35-48); PO2 86 mmHg (83-108); pH 7.34 (7.35-7.45)
--- NOTE | 2024-11-30 16:35 | PTCARENOTE ---
Pt awakens to voice, follows commands to squeeze hands, wiggle toes, and shakes head yes/no appropriately. RT at bedside to place pt on cpap trial. Pt tolerating POX 95%. Impella dressing noted to have increase drainage. CT QI SPECIALIST at bedside. Aquacel
removed, 4x4 & tegaderm applied. 250mL LR bolus given for CVP 6.
[2024-11-30] MEDS: LR 250 ML IV ×2 (16:42→21:57)
[2024-11-30 17:11] LABS: Glucose - Point of Care 150 mg/dl (70-99)
[2024-11-30 17:13] LABS: Blood Urea Nitrogen - POC 21 mg/dl (3-120); Chloride - POC 109 mmol/L (96-111); Creatinine - POC 1.37 mg/dl (0.3-1.0); Glucose - POC 155 mg/dl (70-99); HCO3 - POC 23 mmol/L (21-28); Hematocrit - POC 32 % PCV (42-52); Hemodilution- POC No; Hemoglobin Calculated - POC 10.7; Lactate - POC 0.96 mmol/L (0.36-0.75); O2 Saturation %Calculated-POC 96.8 % (94-98); PCO2 - POC 40 mmHg (35-48); PO2 - POC 91 mmHg (83-108); Potassium - POC 4.3 mmol/L (3.5-5.1); Sodium - POC 141 mmol/L (136-145); Specimen Type - POC Arterial; pH - POC 7.37 (7.35-7.45)
--- NOTE | 2024-11-30 17:15 | PTCARENOTE ---
CT STAVE INSPECTOR at bedside. CI 1.67. CPAP abg obtained. Orders to Extubate patient. RT notified.
--- NOTE | 2024-11-30 17:24 | PTCARENOTE ---
Pt extubated by RT to 6L NC. POX 98%. pt tolerated. Pt able to state name, . Oriented x4. Denies pain & nausea at this time. Bathed with CHG, gown applied. Pt's at bedside and updated.
[2024-11-30 18:00] LABS: Glucose - Point of Care 126 mg/dl (70-99)
[2024-11-30 18:28] LABS: Hematocrit 34.5 % (39.0-52.0); Hemoglobin 11.7 g/dL (13.0-18.0); Platelet Count 148 10^3/uL (130-400)
[2024-11-30 18:31] LABS: Lactic Acid 0.9 mmol/L (0.7-2.0)
[2024-11-30 18:36] LABS: LDH 455 U/L (120-246)
[2024-11-30 19:10] LABS: Glucose - Point of Care 141 mg/dl (70-99)
[2024-11-30] MEDS: ANCEF 5 IV (19:50)
[2024-11-30] MEDS: CALCIUM GLUCONATE 100 IV (19:53)
[2024-11-30] MEDS: SODIUM BICARBONATE 50 MEQ IV (19:54)
[2024-11-30] MEDS: LOW STRENGTH ASPIRIN 81 MG PO (19:56)
[2024-11-30] MEDS: SENOKOT-S PO (19:57)
--- NOTE | 2024-11-30 20:00 | PTCARENOTE ---
Received pt from [facility]. pt is s/p CABG x3, KIMBERLY clip, and Impella 5.5 placement. pt is resting comfortably in bed, AAOx4, denies pain at this time. NSR with 1st degrss AVB and RBBB on monitor, VSS. heart sounds audible, rub present, radial and DP
pulses palpable, trace upper extremity edema, PPM/ICD, Impella 5.5 surgically placed, located at right neck, cm bradley is 35, 3 points of fixation, dressing clean, dry, and intact, setting is P3. lung sounds diminished throughout, spo2 95% on 6LNC,
x2MS and R/L pleural CT to -20 wall suction, no air leaks, tidaling in pleural CT, no tidaling in MS CT, no crepitus. hypoactive BSx4 quadrants, abdomen soft, non tender, pt voiding clear yellow urine. all surgical sites maintained. right IJ
cordis/swan at 48cm, left radial A-line, and PIV all maintained, leveled, and zeroed. insulin, levophed, and epi gtt infusing. call serrano within reach. will continue to monitor.
[2024-11-30 20:59] LABS: Glucose - Point of Care 109 mg/dl (70-99)
--- NOTE | 2024-11-30 23:00 | PTCARENOTE ---
report received from previous RN, walking rounds done. pt in bed asleep. SR w 1st degree AVB + BBB on monitor, HR 80's. B/L radial and DP pulses palpable. Impella 5.5 intact via R neck, set to P3. RIJ cordis + swan intact w KVOs infusing. last CI
2.27. PAPs ~ 20s/10s. CVP ~7. Epi gtt infusing @ 2mcg. heart tones clear, +rub. L radial art line inact, SBP 90s-100s, MAP > 65. B/L breath sounds present. POX 92% on 6LNC. IS encouraged. CT x4 intact to -20cm wall suction, drainage WNL, no air leak
present. hypoactive bowel sounds present. pt tolerating ice and sips of water with meds. Insulin gtt infusing per glycemic protocol. marques catheter intact, draining CYU, UO adequate. all surgical sites stable. see worklist for full assessment, VS,
and interventions. pt sleeping comfortably.
[2024-11-30] MEDS: TYLENOL 1000 MG PO (23:15)
[2024-11-30 23:27] LABS: Glucose - Point of Care 125 mg/dl (70-99)
[2024-11-30] MEDS: SUBLIMAZE 50 MCG IV (23:31)
[2024-12-01] VITALS (28 sets, daily range): BP systolic 108–148; BP diastolic 70–86; PULSE 84; O2SAT 93–94; BMI 30.6
[2024-12-01 01:03] LABS: Lactic Acid 0.7 mmol/L (0.7-2.0)
[2024-12-01 01:09] LABS: LDH 383 U/L (120-246)
[2024-12-01 02:17] LABS: Glucose - Point of Care 121 mg/dl (70-99)
--- NOTE | 2024-12-01 04:00 | PTCARENOTE ---
no acute changes. pt AAOx4. remains SR w 1st degree AVB + BBB. Impella maintained @ P3, CI 2.85, Epi gtt remains @ 2mcg. POX 90-92% on 6LNC. CT output and UO WNL. Insulin gtt maintained per protocol. all surgical sites stable. AM EKG done. pt
resting between care.
[2024-12-01 04:05] LABS: Glucose - Point of Care 128 mg/dl (70-99)
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
[2024-12-01] MEDS: ROXICODONE 5 MG PO ×3 (04:31→16:18)
[2024-12-01] MEDS: SUBLIMAZE 50 MCG IV (04:31)
[2024-12-01] MEDS: ANCEF 5 IV ×2 (04:38→12:05)
[2024-12-01 05:46] LABS: Glucose - Point of Care 133 mg/dl (70-99)
[2024-12-01] MEDS: SYNTHROID 137 MCG PO (05:47)
[2024-12-01] MEDS: NOVOLIN R INSULIN INFUSION 100 IV (05:47)
[2024-12-01] MEDS: TYLENOL 1000 MG PO ×3 (05:47→21:12)
[2024-12-01 05:51] LABS: Mixed Venous O2 Saturation 64.5 %
[2024-12-01 06:15] LABS: Lactic Acid 0.9 mmol/L (0.7-2.0)
[2024-12-01 06:16] LABS: Blood Urea Nitrogen 23 mg/dl (9-20); Carbon Dioxide 24 mmol/L (22-30); Chloride 107 mmol/L (98-107); Estimated Creatinine Clearance 60 ml/min; Glucose 145 mg/dl (70-99); LDH 361 U/L (120-246); Magnesium 2.4 mg/dl (1.6-2.3); Potassium 4.7 mmol/L (3.5-5.1); Sodium 138 mmol/L (135-145); eGFR 51.03
[2024-12-01 06:56] LABS: Hematocrit 33.5 % (39.0-52.0); Hemoglobin 11.2 g/dL (13.0-18.0); Mean Corp Hgb Conc. 33.4 g/dL (33.0-37.0); Mean Corpuscular Volume 86.8 fL (80.0-94.0); Mean Platelet Volume 11.4 fL (7.4-10.4); Platelet Count 140 10^3/uL (130-400); Red Blood Cell Count 3.86 10^6/uL (4.70-6.10); Red Cell Dist. Width 14.6 % (11.5-14.5); White Blood Cell Count 15.8 10^3/uL (4.8-10.8)
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
--- NOTE | 2024-12-01 07:28 | PN.DE.MGMTRT ---
Insulin Management
- -
12/01/2024: Diabetes Management follow up
64 year old male was admitted on 11/24/2024 for exertional chest pain and ruled in for NSTEMI.
PMH: CAD/[place]/PCI 2007, ICM, HTN, HLD, CKD, hypothyroidism, Obesity and T2DM.
[facility] reported significant triple-vessel coronary disease with echo confirming acute on chronic HF R EF (20-25%). P
Prior to admission was taking Metformin 1000 mg BID, Jardiance 25mg daily, repaglinide 0.5mg TID and Trulicity 0.75mg weekly.
A1C 6.6%, Cr 1.4-->1.5, eGFR 51.03 today.
Patient awake, alert, oriented, resting in bed, offers no complaints, able to discuss diabetes care plan.
Remains on the glycemic protocol insulin infusion, glucose range 121 to 133, requiring 2.3 to 2.6 units of insulin/hr
Will cont same today and follow up tomorrow to assess readiness to transition off the drip. Discussed with nurse.
Pt states he does not have a glucose monitor and does not test his blood sugar at home
Will ask Diabetes RN Educator ti see pt and provide monitor instructions.
Diabetes History
- -
Type of Diabetes: 2
Pre-Admission Diabetes Regimen
11/30/24 12/01/24
14 05:38
Creatinine 1.4 H 1.5 H
Lab Results
Hemoglobin A1c 6.6 % (4.0-5.6) H 11/24/24 11:31
Insulin Pump Settings
IP Diabetes Regimen
11/30/24 11/30/24 11/30/24
14: 15:52 17:09
Glucose 157 H
POC Glucose 160 H 184 H 150 H
11/30/24 11/30/24 11/30/24
17:58 19:09 20:56
Glucose
POC Glucose 126 H 141 H 109 H
11/30/24 12/01/24 12/01/24
23:24 02:12 04:04
Glucose
POC Glucose 125 H 121 H 128 H
12/01/24 12/01/24
05:38 05:44
Glucose 145 H
POC Glucose 133 H
Patient Education
[2024-12-01 07:49] LABS: D-Dimer < 0.27 ug/mlFEU (0.00-0.50)
[2024-12-01 08:10] LABS: Glucose - Point of Care 118 mg/dl (70-99)
--- NOTE | 2024-12-01 08:30 | PTCARENOTE ---
Resumed care of patient. Walking rounds completed with previous RN. Pt assessed while he was lying in bed. Pt rates sternal pain 2-3/10. Denies nausea, and shortness of breath. C/o numbness to right hand. COX with equal strength throughout. SR with
1st degree AVB and RBBB on tele with rates in the 80s. BP 127/62. +Rub. Impella to P3. CI 2.87 PA pressures 30s/10s. CVP 5. Bilateral radial and DP pulses palpable. Bilateral trace hand edema. POX 95% on 6L, titrated to 4L, POX 93%. Lungs diminished
in the bases. IS encouraged-750mL achieved. Mediastinal chest tubes x2 y-sited to 1 atrium to -20cm suction draining serosanguineous fluid. Right and left pleural chest tubes y-sited to 1 atrium to -20cm suction draining serosanguineous fluid. No
air leaks, tidaling, crepitus noted. Abdomen soft, round, nontender. Hypoactive BS. Pt reports belching, denies gas. Schneider catheter intact draining adequate amounts of clear yellow urine. Sternal incision covered with Antibacterial dressing. Chest
tube dressing changed. Right groin puncture site approximated with skin glue, LEDY. Right SVG harvest site approximated with skin glue, covered with FELA-CDI. Impella 5.5 exit site right neck, gauze dressing CDI. 3 fixation points intact. Right IJ
cordis intact with swan floated to 48cm. NSS KVO infusing. Left radial que intact. All lines flushed, leveled, and zeroed. Right AC 18g PIV infusing insulin gtt per Critical Care Glycemic Protocol. Left AC 20g PIV intact. Epi infusing @2mcg/min.
See MAR for medication administration. See worklist for complete nursing assessment. Plan of care of reviewed and patient in agreement.
[2024-12-01] MEDS: BACTROBAN 2% OINTMENT 1 APPLIC NASAL ×2 (08:42→20:19)
[2024-12-01] MEDS: LIDOCAINE 4% PATCH 1 PATCH TOPICAL (08:42)
[2024-12-01] MEDS: MAGNESIUM OXIDE 500 MG PO ×2 (08:43→20:18)
[2024-12-01] MEDS: VITAMIN C 500 MG PO (08:43)
[2024-12-01] MEDS: SENOKOT-S 1 TABLET PO ×2 (08:43→20:18)
[2024-12-01] MEDS: LIPITOR 80 MG PO (08:43)
[2024-12-01] MEDS: LOW STRENGTH ASPIRIN 81 MG PO (08:43)
[2024-12-01] MEDS: NSS IV (08:43)
[2024-12-01] MEDS: PLAVIX 75 MG PO (08:43)
[2024-12-01] MEDS: NEURONTIN 100 MG PO ×3 (08:43→21:12)
[2024-12-01] MEDS: FEOSOL 325 MG PO (08:43)
[2024-12-01] MEDS: PROTONIX 40 MG PO (08:43)
[2024-12-01 08:53] LABS: ALT (SGPT) 39 U/L (0-50); AST (SGOT) 44 U/L (17-59); Albumin 3.1 g/dl (3.5-5.0); Alkaline Phosphatase 50 U/L (38-126); Blood Urea Nitrogen 24 mg/dl (9-20); Calcium 8.8 mg/dl (8.4-10.2); Carbon Dioxide 24 mmol/L (22-30); Chloride 106 mmol/L (98-107); Estimated Creatinine Clearance 60 ml/min; Glucose 137 mg/dl (70-99); Potassium 4.7 mmol/L (3.5-5.1); Sodium 137 mmol/L (135-145); Total Bilirubin 1.5 mg/dl (0.2-1.3); Total Protein 5.1 g/dl (6.3-8.2); eGFR 51.03
[2024-12-01] MEDS: NOVOLOG FLEXPEN 4 UNITS SC ×2 (09:10→13:10)
[2024-12-01 09:11] LABS: Glucose - Point of Care 118 mg/dl (70-99)
[2024-12-01 09:11] LABS: INR 1.19; PT 15.4 Sec (11.4-14.6)
[2024-12-01 09:43] LABS: Fibrinogen 533 MG/DL (199-459)
--- NOTE | 2024-12-01 09:47 | W.PN.CD ---
Today's Communication / Plan
-
continuing Impella for one more day
wean epi gtt as able.
Impression / Plan
-
I/P: 64M with CAD (STEMI with BMS to pRCA 2007), ICM s/p [employer] ICD, hypertension, dyslipidemia, type 2 diabetes mellitus, CKD, and hypothyroidism, who presented to the emergency department the chief complaint of chest pain.
Outpatient information and data architect analyst: Dr. Fonseca
NSTEMI with multivessel CAD
-s/p CABG x 3 (HUI to LAD, GSV to OM, GSV to RPDA)/Endoscopic harvest/prep of RLE GSV/ KIMBERLY Clip (45 mm AtriClip), by Dr. Martinez, 11/30/24, pod#1
-Impella 5.5 LVAD placed on wean from CPB -planning for an additional day
-still on epi gtt at 2--wean as able
-DAPT
HFrEF EF 20-25%
- Suspect ischemic, could be mixed, LVEF was 45-50% in 2007 post STEMI
- GDMT as tolerated:
-FELA/ARB/ARNI: Entresto 97�103 mg (restart as able post op)
-SGLT2 inhibitor: Jardiance (restart as able post op)
-Aldosterone agonist: Can consider after CTS
-Beta adiel: coreg to 12.5 mg bid (restart as able post op)
-Isosorbide/Hydralazine:�can try to add as able --would do last
-ICD: Implanted ([employer])
CAD
- BMS to pRCA (2007)
- Continue beta-adiel(eventually), aspirin, and statin
CKD
- stable, at 1.5 continue monitor
Dyslipidemia
- continue high dose statin, would benefit from more aggressive lipid lowering with goal LDL at least <55
Uncontrolled type 2 diabetes mellitus with hyperglycemia Hgb A1c 6.6
- Most recent HgbA1c greater than 8%, managed by his PCP
- Metformin on hold
Ventricular tachycardia, post STEMI 2007, on beta-adiel
Dyslipidemia, goal LDL <55
[employer] ICD
Subjective: awake in bed, without compliant, Impella still in place
CCT 31 minutes.
Coronary angiography November 24, 2024:
CONCLUSIONS
1. Triple-vessel coronary artery disease with subtotally occluded LAD, likely patient intake representative of a prior infarct, moderate serial RCA stenoses, and iFR positive stenosis in a large OM1. Given the patient's young age and diabetic status, surgical
revascularization may be preferable and he was taken off the table for CT surgical consultation. Percutaneous revascularization would be feasible and complete revascularization could be achieved percutaneously with moderate complexity.
2. Moderately elevated LV filling pressure and no aortic stenosis.
TTE November 24, 2024: CONCLUSIONS
Moderately dilated LV with severely reduced systolic function.
LVEF is 20-25% by Lindsay's method of discs.
LAD territory hypo-/akinesis with global diffuse hypokinesis.
Stage I diastolic dysfunction suggestive of abnormal relaxation.
Normal right ventricular size and function.
No significant valvular disease.
Estimated pulmonary artery pressure of 25-30 mmHg. Assuming a right atrial
pressure of 3 mmHg.
Compared to prior from June 23, 2008, EF is now severely reduced at 20-25%,
previously normal, and with new wall motion abnormalities discussed above.
Physical Exam
Vital Signs/Labs
Vital Signs
Temp Pulse Resp BP Pulse Ox
98.7 F 85 22 133/75 94
12/01/24 09:00 12/01/24 09:10 12/01/24 09:10 12/01/24 09:00 12/01/24 09:10
11/30/24 12/01/24 12/02/24
06:59 06:59 06:59
Actual Weight 220 lb 7.396 oz 225 lb 1.471 oz
12/01/24 05:38
12/01/24 08:29
PT 15.4 Sec (11.4-14.6) H 12/01/24 08:29
INR 1.19 12/01/24 08:29
APTT 33.5 Sec (23.4-35.0) 11/30/24 14:28
Magnesium 2.4 mg/dl (1.6-2.3) H 12/01/24 05:38
Triglycerides 187 mg/dl (10-149) H 11/25/24 02:44
LDL Cholesterol, Calc 60 mg/dl 11/25/24 02:44
VLDL Cholesterol, Calc 37 mg/dl (0-30) H 11/25/24 02:44
HDL Cholesterol 24 mg/dl 11/25/24 02:44
11/24/24
11:31
Vdo-[id number]-Pwxvioqitsi Pept 3840
Physical Exam
Constitutional: No acute distress
Cardiovascular: Rhythm & rate is regular, Pedal edema is absent, JVD pressure is normal, Systolic murmur absent and Diastolic murmur absent
Respiratory: Respiratory effort normal, Lungs clear to auscul., Wheeze Absent, Crackles Absent and Rhonchi Absent
Neuro/Psych: AO x 3
Data Reviewed
-
Date of Service: December 01, 2024
Medical Decision Making: Review of Case with other Provider (CT CONSOLIDATION ACCOUNTANT Marla, weaning epi gtt as able)
EKG: Other (tele sinus with pvcs)
[2024-12-01 10:02] LABS: Glucose - Point of Care 121 mg/dl (70-99)
[2024-12-01 11:11] LABS: Glucose - Point of Care 112 mg/dl (70-99)
[2024-12-01 12:07] LABS: Glucose - Point of Care 101 mg/dl (70-99)
--- NOTE | 2024-12-01 12:30 | PTCARENOTE ---
Pt reassessed. Pt rates sternal pain 2/10. Denies nausea. SR with 1st degree AVB and RBBB on tele with rates in the 80s-90s. BP 132/66. POX 91% on 4L NC. Impella remains at P3. CI 3.15. CT output WNL. Schneider continues to drain adequate amounts of
clear yellow urine. Surgical incisions stable. All lines remain intact. Pt assisted OOB with 3 assist. Impella remains intact at 35cm. Pt tolerated. No other acute changes from previous assessment.
[2024-12-01 12:47] LABS: LDH 322 U/L (120-246)
[2024-12-01 13:07] LABS: Glucose - Point of Care 110 mg/dl (70-99)
[2024-12-01 15:39] LABS: Glucose - Point of Care 118 mg/dl (70-99)
--- NOTE | 2024-12-01 16:00 | PTCARENOTE ---
Pt reassessed. Assisted back to bed with 3 assist. Pt tolerated. SR with 1st degree AVB and RBBB with rates in the 80s. BP 131/63. POX 92% on 4L NC. CI 2.29. Impella remains @P3 at 35cm. CT output WNL. Schneider draining adequate amounts of clear yellow
urine. Surgical sites stable. All lines remain intact. Remains on insulin gtt per glycemic protocol.
[2024-12-01] MEDS: SODIUM BICARBONATE 1025 MEQ INF CATH (16:18)
--- NOTE | 2024-12-01 16:51 | W.PN.ANS.POP ---
Anesthesia Post Operative
- Anesthesia Post Op Note
Vital Signs Stable-See Nursing Note: Yes
Airway Patent: Yes
Adequate Pain Control: Yes
Change in Mental Status: No
Current Postoperative Nausea & Vomiting: No
Anesthesia Complications: No
General Anesthetic Recall: No
Unplanned Admission: No
Post Op Hydration Adequate: Yes
--- NOTE | 2024-12-01 16:52 | W.PN.UPDATE ---
Update Note
Progress Note Update
#Cardiogenic Shock
- Epi this am @ 2mcg/min and Impella 5.5 was at P3
- Flows were ~2.0-2.1L
- wean off epi for CI >2
- monitor for suction alarms
>>currently no significant alarms
- continue CHG washes for Impella
- Maintain SGC
- Targeted removal date:
CPT code: 11129
[2024-12-01 18:20] LABS: Glucose - Point of Care 85 mg/dl (70-99)
[2024-12-01] MEDS: NOVOLOG FLEXPEN SC (18:26)
[2024-12-01 18:42] LABS: Lactic Acid 0.7 mmol/L (0.7-2.0)
[2024-12-01 18:47] LABS: LDH 312 U/L (120-246)
[2024-12-01] MEDS: CORDARONE 103 MG IV (19:09)
[2024-12-01 20:17] LABS: Glucose - Point of Care 176 mg/dl (70-99)
--- NOTE | 2024-12-01 21:00 | PTCARENOTE ---
Assumed care of pt from dayshift RN. Walking rounds completed. Pt is AAOx4. Appropriate. COX. Pt is SR w/ 1st degree HB, R BBB, and occasional PVCs on the tele monitor. HR 90s. Amiodarone bolus administered at shift change for increase in ectopy. BP
120s/60s. CVP ~4. PAPs 20s/teens. CI: 2.8. CO: 6.22. Palpable pulses throughout. Trace B/L LE & UE edema. Impella 5.[address] Impella set to P3. Impella at 35 cm and secured at 3 points. See worklist for full Impella documentation. Pt on 4 L NC.
POX 92-94%. Lung sounds diminished at the bases. Deep breathing and IS encouraged. Mediastinal CTx2 and R/L pleural CT to -20 suction, no airleaks noted at this time, and output WNL. Abdomen soft/nontender. Hypoactive BS. Pt reports decrease in
appetite. Schneider catheter in place and draining clear/yellow urine. All surgical sites stable. Right IJ cordis w/ swan floated to 48 cm intact. Left radial a-line intact. PIV x2 intact. All lines leveled, zeroed, and flushed. Pt denies pain at this
time. Glycemic protocol followed. CHG bath administered. See worklist for full nursing assessment and interventions. Call serrano within reach.
[2024-12-01] MEDS: PACERONE 200 MG PO (21:13)
[2024-12-01 22:10] LABS: Glucose - Point of Care 139 mg/dl (70-99)
[2024-12-02] VITALS (30 sets, daily range): BP systolic 100–136; BP diastolic 73–118; PULSE 92; O2SAT 92; BMI 31.7
[2024-12-02 00:01] LABS: Glucose - Point of Care 117 mg/dl (70-99)
--- NOTE | 2024-12-02 00:08 | PTCARENOTE ---
No acute changes in assessment. Pt is sinus w/ 1st degree, R BBB, and occasional PVCs on the tele monitor. HR 90s. BP stable. 110s-120s/50-60s. PAPs 20s/10's. CVP ~ 2-5. CI > 2. Impella 5.5 maintained at P-3, at 35 cm, and secured at 3 points. Pt on
4 L NC. POX 91-92%. CTx4 assessment unchanged. Schneider catheter intact and draining yellow urine. All surgical sites stable. [place] and a-line intact. All lines leveled, zeroed, and flushed. Glycemic protocol followed. Pt states they are comfortable at
this time. Call serrano within reach.
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
[2024-12-02] MEDS: PACERONE 200 MG PO ×4 (01:50→21:39)
[2024-12-02] MEDS: ROXICODONE 5 MG PO (01:50)
[2024-12-02] MEDS: NOVOLIN R INSULIN INFUSION 100 IV (01:50)
[2024-12-02 01:56] LABS: Glucose - Point of Care 93 mg/dl (70-99)
--- NOTE | 2024-12-02 03:38 | PTCARENOTE ---
Pt reassessed. Pt remains SR w/ 1st degree HB, R BBB, and occasional PVCs. HR 90s. BP 100-120s/50-60s. CVP ~ 7. PAPs 30s/teens. CI > 2. Impella 5.5 maintained at P-3, 35 cm bradley, and secured at 3 points. Pt on 4 L NC. POX 93%. CTx4 assessment
unchanged. Schneider catheter intact and draining yellow urine. [place] and a-line maintained. All lines leveled, zeroed, and flushed. Glycemic protocol followed. See MAR for pain medication administration. Ordered labs drawn and sent. Call serrano within
reach.
[2024-12-02 04:09] LABS: Fibrinogen 586 MG/DL (199-459); INR 1.21; PT 15.6 Sec (11.4-14.6)
[2024-12-02 04:10] LABS: Glucose - Point of Care 127 mg/dl (70-99)
[2024-12-02 04:13] LABS: Lactic Acid 0.7 mmol/L (0.7-2.0)
[2024-12-02 04:19] LABS: ALT (SGPT) 25 U/L (0-50); AST (SGOT) 27 U/L (17-59); Albumin 2.8 g/dl (3.5-5.0); Alkaline Phosphatase 67 U/L (38-126); Blood Urea Nitrogen 21 mg/dl (9-20); Calcium 8.3 mg/dl (8.4-10.2); Carbon Dioxide 22 mmol/L (22-30); Chloride 104 mmol/L (98-107); Estimated Creatinine Clearance 60 ml/min; Glucose 113 mg/dl (70-99); Hematocrit 31.1 % (39.0-52.0); Hemoglobin 10.6 g/dL (13.0-18.0); LDH 285 U/L (120-246); Magnesium 2.3 mg/dl (1.6-2.3); Mean Corp Hgb Conc. 34.1 g/dL (33.0-37.0); Mean Corpuscular Hgb 30.1 pg (27.0-31.0); Mean Corpuscular Volume 88.4 fL (80.0-94.0); Mean Platelet Volume 11.7 fL (7.4-10.4); Platelet Count 111 10^3/uL (130-400); Potassium 4.5 mmol/L (3.5-5.1); Red Blood Cell Count 3.52 10^6/uL (4.70-6.10); Red Cell Dist. Width 14.6 % (11.5-14.5); Sodium 133 mmol/L (135-145); Total Bilirubin 1.9 mg/dl (0.2-1.3); White Blood Cell Count 13.5 10^3/uL (4.8-10.8); eGFR 51.03
[2024-12-02] MEDS: CALCIUM GLUCONATE 100 IV (04:58)
[2024-12-02] MEDS: CORDARONE 103 MG IV ×2 (05:04→13:15)
[2024-12-02] MEDS: TYLENOL 1000 MG PO ×3 (05:08→21:39)
[2024-12-02] MEDS: SYNTHROID 137 MCG PO (05:09)
[2024-12-02 06:13] LABS: Glucose - Point of Care 116 mg/dl (70-99)
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
--- NOTE | 2024-12-02 07:53 | PN.DE.MGMTRT ---
Insulin Management
- -
12/02/2024: Diabetes Management follow up
64 year old male was admitted on 11/24/2024 for exertional chest pain and ruled in for NSTEMI.
PMH: CAD/HI/PCI 2007, ICM, HTN, HLD, CKD, hypothyroidism, Obesity and T2DM.
[facility] reported significant triple-vessel coronary disease with echo confirming acute on chronic HF R EF (20-25%). P
Prior to admission was taking Metformin 1000 mg BID, Jardiance 25mg daily, repaglinide 0.5mg TID and Trulicity 0.75mg weekly.
A1C 6.6%, Cr 1.4-->1.5, eGFR 51.03 today.
Patient awake, alert, oriented, sitting up in chair, offers no complaints, able to discuss diabetes care plan.
Remains on the glycemic protocol insulin infusion, glucose range is 93 to 127 requiring 0.7 to 4 units of insulin/hr
Will transition off insulin infusion to SQ and oral regimen.
Give Lantus 12 units @ 1300, turn insulin drip off at 14:30.
Cr at baseline of 1.5. Will resume Metformin 1000mg BID, Prandin 0.5mg TID and Farxiga 10mg daily- was taking Jardiance 25mg daily at home
Will make further dose adjustments tomorrow if necessary. Discussed with nurse.
Pt states he does not have a glucose monitor and does not test his blood sugar at home
Will ask Diabetes RN Educator ti see pt and provide monitor instructions.
Diabetes History
- -
Type of Diabetes: 2
Pre-Admission Diabetes Regimen
12/01/24 12/02/24
08: 03:09
Creatinine 1.5 H 1.5 H
Lab Results
Hemoglobin A1c 6.6 % (4.0-5.6) H 11/24/24 11:31
Insulin Pump Settings
IP Diabetes Regimen
12/01/24 12/01/24 12/01/24
08:09 08:29 09:09
Glucose 137 H
POC Glucose 118 H 118 H
12/01/24 12/01/24 12/01/24
10:01 11:08 12:03
Glucose
POC Glucose 121 H 112 H 101 H
12/01/24 12/01/24 12/01/24
13:06 15:37 18:18
Glucose
POC Glucose 110 H 118 H 85
12/01/24 12/01/24 12/02/24
20:17 22:09 00:00
Glucose
POC Glucose 176 H 139 H 117 H
12/02/24 12/02/24 12/02/24
01:54 03:09 04:09
Glucose 113 H
POC Glucose 93 127 H
12/02/24
06:12
Glucose
POC Glucose 116 H
Meal type: Dinner
Meal type: Breakfast
Amount consumed: 50%
Amount consumed: 75%
Patient Education
[2024-12-02 07:58] LABS: Glucose - Point of Care 115 mg/dl (70-99)
[2024-12-02] MEDS: VITAMIN C 500 MG PO (08:30)
[2024-12-02] MEDS: NEURONTIN 100 MG PO ×3 (08:30→21:39)
[2024-12-02] MEDS: LIDOCAINE 4% PATCH 1 PATCH TOPICAL (08:30)
[2024-12-02] MEDS: PROTONIX 40 MG PO (08:30)
[2024-12-02] MEDS: FEOSOL 325 MG PO (08:30)
[2024-12-02] MEDS: SENOKOT-S 1 TABLET PO ×2 (08:30→19:14)
[2024-12-02] MEDS: PLAVIX 75 MG PO (08:30)
[2024-12-02] MEDS: LIPITOR 80 MG PO (08:30)
[2024-12-02] MEDS: LOW STRENGTH ASPIRIN 81 MG PO (08:30)
--- NOTE | 2024-12-02 08:30 | PTCARENOTE ---
Resumed care of patient. Walking round completed with previous RN. Pt assessed while he was sitting in the chair. Pt alert and oriented x4. Pt denies pain, shortness of breath, and nausea. COX with equal strength throughout. 2 assist to stand at the
chair and reposition. SR with 1st degree AVB, RBBB, and frequent PVCs with rates in the 90s. BP 108/79. Heart tones audible. Bilateral radial and DP pulses palpable. Permanent ACID. Impella 5.5 to p3. CI 2.08 PA pressures 30s/10s. CVP 5. Generalized
trace edema noted. POX 94% on 4L, titrated to 3L NC POX 93%. Lungs diminished in the bases. IS encouraged-750mL achieved. No cough noted. Right and left pleural chest tubes y-sited to 1 atrium to -20cm suction draining serosanguineous fluid.
Mediastinal chest tubes x2 y-sited to 1 atrium to -20cm suction draining serosanguineous fluid. No air leaks, tidaling, crepitus noted. Abdomen soft, round, nontender. Hypoactive BS. Pt reports passing gas. Poor appetite. Schneider catheter intact
draining clear monster urine. Sternal incision covered with Aquacel-CDI. CT sites covered, CDI. Impella right neck site covered with gauze, dressing CDI. Right groin puncture approximated, LEDY. Right SVG harvest approximated with skin glue, CLE[employer] RICE [employer]ER. Right
IJ cordis with swan floated to 48cm. Left radial que intact with appropriate waveform. All lines flushed, leveled, and zeroed. Left AC 20g PIV intact infusing insulin gtt per Critical Care Glycemic Protocol. Left AC 18g PIV intact. Impella at 35cm
with [address] See MAR for medication administration. See worklist for complete nursing assessment. Plan of care reviewed and patient in agreement.
[2024-12-02] MEDS: BACTROBAN 2% OINTMENT 1 APPLIC NASAL ×2 (08:31→19:14)
[2024-12-02] MEDS: NSS 500 IV (08:31)
[2024-12-02] MEDS: NOVOLOG FLEXPEN 4 UNITS SC ×2 (08:44→14:33)
[2024-12-02] MEDS: CORDARONE 518 MG IV (08:46)
[2024-12-02 09:52] LABS: Glucose - Point of Care 149 mg/dl (70-99)
--- NOTE | 2024-12-02 10:11 | W.PN.CD ---
Today's Communication / Plan
-
Furosemide 40 mg IV x1 and monitor.
Wean impella to P2. If he tolerates, would D/C (like tomorrow in OR).
Monitor H/H, platelets, LDH.
Maintain swan-caitlin catheter for hemodynamic guidance as we wean and D/C impella.
Impression / Plan
-
Impression/Plan: 64M with CAD (STEMI with BMS to pRCA 2007), ICM s/p [employer] ICD, hypertension, dyslipidemia, type 2 diabetes mellitus, CKD, and hypothyroidism admitted with NSTEMI, found to have severe, multivessel CAD.
Outpatient dynamometer tester: Dr. Fonseca
#NSTEMI/multivessel CAD
-Acute on chronic/progressive.
-Troponin peaked at 1.380 (11/25/2024).
-BMS to pRCA (2007).
-s/p CABG x 3 (HUI to LAD, GSV to OM, GSV to RPDA) and LAAE (#45 AtriClip), by Dr. Martinez, 11/30/24.
-Requiring significant hemodynamic support:
-Impella 5.5 LVAD placed on wean from CPB, currently P3.
-Hbg 10.6 <-- 11.2.
-Plt 111 <-- 140.
-LDH 285 <-- 312 <-- 322 <-- 361 <-- 383 <-- 455
-Epinephrine previously 1 mcg/kg/min, weaned off yesterday.
-Wean impella to P2. If he tolerates P2, would DC in light of low grade thrombocytopenia. Anemia noted. LDH is low and falling.
-High dose, high potency statin.
-Continue aspirin 81 mg daily.
-Furosemide 40 mg IV x1 and monitor.
#HFrEF
-Acute on chronic.
-EF 20-25%
-Suspect ischemic, could be mixed.
-LVEF was 45-50% in 2007 post STEMI.
-GDMT as tolerated:
-FELA/ARB/ARNI: On hold.
-SGLT2 inhibitor: On hold.
-Aldosterone agonist: Can consider when appropriate.
-Beta adiel: Restart when possible.
-Isosorbide/Hydralazine:�can try to add as able --would do last.
-ICD: Implanted ([employer]).
-Furosemide 40 mg IV x1 monitor.
#CKD
-Chronic, stable.
-Baseline Cr 1.5.
-Continue to monitor.
#Dyslipidemia
-Chronic, stable.
-Continue high dose statin.
-Goal LDL at least <55.
#NIDDM2 with hyperglycemia Hgb A1c 6.6
-Chronic, stable.
-Controlled. HbA1c = 6.6%.
-Resume metformin after impella removal.
-Patient would benefit from transitioning from dulaglutide to semaglutide or tirzepatide as an outpatient.
#Ventricular tachycardia, post STEMI 2007, on beta-adiel
Critical Care Time = 40 minutes.
Subjective/Interval History:
Impella at P3.
SaO2 = 92-94% on 3LNC.
Weight up 3.7 kg from yesterday, 5.8 kg from shreya.
Some atrial tachycardia in the past 24 hours. Amiodarone bolus given.
Platelets 140 --> 111.
Hbg 11.2 --> 10.6.
DATA:
Coronary angiography November 24, 2024:
CONCLUSIONS
1. Triple-vessel coronary artery disease with subtotally occluded LAD, likely risk control field representative of a prior infarct, moderate serial RCA stenoses, and iFR positive stenosis in a large OM1. Given the patient's young age and diabetic status, surgical
revascularization may be preferable and he was taken off the table for CT surgical consultation. Percutaneous revascularization would be feasible and complete revascularization could be achieved percutaneously with moderate complexity.
2. Moderately elevated LV filling pressure and no aortic stenosis.
TTE November 24, 2024:
CONCLUSIONS
Moderately dilated LV with severely reduced systolic function.
LVEF is 20-25% by Lindsay's method of discs.
LAD territory hypo-/akinesis with global diffuse hypokinesis.
Stage I diastolic dysfunction suggestive of abnormal relaxation.
Normal right ventricular size and function.
No significant valvular disease.
Estimated pulmonary artery pressure of 25-30 mmHg. Assuming a right atrial
pressure of 3 mmHg.
Compared to prior from June 23, 2008, EF is now severely reduced at 20-25%,
previously normal, and with new wall motion abnormalities discussed above.
Intraoperative GILMAR, 11/30/2024:
CONCLUSIONS
Severe LV dysfunction. Overall LVEF calculates to 21% by Lindsay's rule.
Moderate concentric left ventricular hypertrophy.
Stage I Diastolic dysfunction.
Severely dilated left atrium.
Moderately dilated right atrium.
Trace aortic insufficiency.
Aortic sclerosis without stenosis.
Mild tricuspid regurgitation.
Estimated pulmonary artery systolic pressure of 30-35 mmHg.
Trace mitral regurgitation.
Mild sessile atheroma seen in the descending aorta and distal arch.
POST OPERATIVE FINDINGS
The patient underwent a CABG, KIMBERLY clipping, and placement of an Impella 5.5.
Postop rhythm remains sinus. RV function appears normal. LV appears
decompressed with improved wall motion. Overall LVEF appears to be
approximately 30-35%. The Impella is in good position with no obstruction of
the inflow or outflow. The distance from the LV inflow to the AV measures 5.4
cm. Mild AI is noted around the Impella. Mild central MR. Trace TR. PV
appears normal. The LA appendage has been adequately clipped with no color
Doppler distal to the clip. Aortic scan is unchanged.
Physical Exam
Vital Signs/Labs
Vital Signs
Temp Pulse Resp BP Pulse Ox
37.4 C 94 28 121/83 95
12/02/24 09:00 12/02/24 09:00 12/02/24 09:00 12/02/24 09:00 12/02/24 09:00
11/30/24 12/01/24 12/02/24
11:59 11:59 11:59
Actual Weight 100 kg 102.1 kg 105.8 kg
12/02/24 03:09
12/02/24 03:09
PT 15.6 Sec (11.4-14.6) H 12/02/24 03:09
INR 1.21 12/02/24 03:09
APTT 33.5 Sec (23.4-35.0) 11/30/24 14:28
Magnesium 2.3 mg/dl (1.6-2.3) 12/02/24 03:09
Triglycerides 187 mg/dl (10-149) H 11/25/24 02:44
LDL Cholesterol, Calc 60 mg/dl 11/25/24 02:44
VLDL Cholesterol, Calc 37 mg/dl (0-30) H 11/25/24 02:44
HDL Cholesterol 24 mg/dl 11/25/24 02:44
11/24/24
11:31
Uzc-[id number]-Elsodmfvduj Pept 3840
Physical Exam
Constitutional: No acute distress and Comfortable
EENT: Anicteric and Moist mucous membranes
Cardiovascular: Rhythm & rate is regular, Pedal edema present, Murmur/rub/gallop absent and Other (Impella hum.)
Respiratory: Respiratory effort normal, Lungs clear to auscul., Wheeze Absent, Crackles Absent and Rhonchi Absent
GI: Soft, Distention absent, Flat, Non tender and Normal bowel sounds
Neuro/Psych: AO x 3
Data Reviewed
-
Date of Service: December 02, 2024
Medical Decision Making: Reviewed Test Results, Independent Historian Assessment and Test Interpretation
EKG: Tracing Personally Visualized and interpreted and Report Reviewed by me
Echo: Report Reviewed by me
X-Ray/CT/US/MRI/NUC/PET: Image Personally Visualized and interpreted and Report Reviewed by me
Medical Tests (PFT, Pathology etc): Report Reviewed by me
Labs: Labs Reviewed by me
Old Records: Reviewed
--- NOTE | 2024-12-02 10:45 | PTCARENOTE ---
Pt assisted back to bed with 2-3 assist. Pt tolerated. Impella remains at 35cm.
--- NOTE | 2024-12-02 11:40 | PTCARENOTE ---
Right and left pleural chest tubes d/c per orders. Pt tolerated. Sutures tied, new dressing applied.
[2024-12-02 12:10] LABS: Glucose - Point of Care 119 mg/dl (70-99)
--- NOTE | 2024-12-02 12:10 | PTCARENOTE ---
Pt reassessed. Resting in bed. Denies pain, nausea, shortness of breath. Afib on tele with rates in the 100s, CT PRESCRIPTION CLERK LENSES notified. BP105/76. POX 91% on 3L NC. CI 1.92, CTNP notified. Mediastinal CTs drainage WNL. Impella remains P3 @ 35cm. All lines
remain intact. No other acute changes.
--- NOTE | 2024-12-02 12:53 | CM ---
CM following for DC planning needs.
Pt. is POD#[address] Surgery[address]
Reviewed initial assessment. Pt. from 2 story home w/ spouse, 1 ROSA. Functionally, patient is indep. w/ ADLs, mobility without the use of any assisted device.
Antic. DC plan is for home w/ CT Transitional Care RN.
Will cont. to follow.
[2024-12-02 13:13] LABS: Glucose - Point of Care 92 mg/dl (70-99)
[2024-12-02] MEDS: FARXIGA 10 MG PO (13:15)
[2024-12-02] MEDS: LANTUS 0.12 UNITS SC (13:41)
--- NOTE | 2024-12-02 14:00 | PTCARENOTE ---
Pt assisted with 3 to get OOB to chair. pt tolerated.
[2024-12-02 14:16] LABS: Glucose - Point of Care 146 mg/dl (70-99)
[2024-12-02] MEDS: NOVOLOG FLEXPEN SC ×2 (14:32→17:36)
--- NOTE | 2024-12-02 15:34 | PTCARENOTE ---
12/02/2024 DIABETES EDUCATION
I met with Gabino to review diabetes management. He had a triple bypass, was moving mulch and experienced chest pain.
States he is on a BP and cholesterol medication, last HbA1c was 6.6%. Occasionally monitors glucose at home.
I educated on physiology of T2D, organ damage, managing with medications, monitoring BG, nutrition, activity, sleep and managing stress. I reinforced signs of hyperglycemia, hypoglycemia and hypoglycemia protocol; BS parameters and recommended HbA1c
goals, glucometer and CGM instructions, glucose tracker, medic alert bracelet and outpatient DSME program. Written material provided.
I educated and reviewed using [employer] Next glucometer, provided sample kit. He declined demonstration because he has glucometer at home and RN performed Accu-Chek during education session. Provided written material on diabetes management,
Encouraged patient to follow up with his PCP for post d/c appointment and to monitor medication and blood glucose levels. Provided list of endocrinologists if desired, to contact insurance company to verify in network status. Patient verbalized
understanding.
[2024-12-02 15:41] LABS: Glucose - Point of Care 141 mg/dl (70-99)
[2024-12-02] MEDS: SODIUM BICARBONATE 1025 MEQ INF CATH (15:55)
--- NOTE | 2024-12-02 16:00 | PTCARENOTE ---
Pt assisted back to bed per patient request with 3 assist. Pt tolerated. Tired, but oriented x4. Denies pain. Afib with rates in the 100s. BP 115/74. CI 2.32. POX 91% on 4L NC. Surgical sites stable. Impella remains at P3 @35cm. CT output WNL. Schneider
draining adequate amounts of clear yellow urine. All lines remain intact. no other acute changes from previous assessment.
[2024-12-02 17:05] LABS: LDH 263 U/L (120-246)
[2024-12-02 17:07] LABS: Lactic Acid 0.9 mmol/L (0.7-2.0)
[2024-12-02] MEDS: GLUCOPHAGE 1000 MG PO (18:09)
[2024-12-02] MEDS: PRANDIN 0.5 MG PO (18:09)
[2024-12-02] MEDS: NOVOLOG FLEXPEN-MODERATE RESISTANCE 1 UNITS SC (18:09)
[2024-12-02 18:17] LABS: Glucose - Point of Care 156 mg/dl (70-99)
--- NOTE | 2024-12-02 19:00 | PTCARENOTE ---
Received from RN @ 1900. Patient laying comfortably in bed w/ call serrano in reach. A. Fib rhythm BP 126/68 HR 115. Heart sounds audible. Rub noted. Radial and pedal pulses present. Trace bilateral ankle edema noted. Active ICD present. Right
neck Impella 5.5 @ 35cm P-3 w/ 3 points of securement. No alarms good flow see Worklist for placement signals. Lungs clear but diminished in bases bilaterally. IS 2000. POX 93% 4L NC. Occasional wet non productive cough noted. 2x mediastinal
chest tubes set to -20 wall suction draining serosanguineous fluid WNL. No crepitus, tidaling, or air leaks noted. Bowel sounds normoactive. Appetite diminished. Schneider draining clear yellow urine WNL. Sternal dressing dry and intact. CT
dressing dry and intact. Right groin well approximated w/ minimal ecchymosis. Right leg well approximated. RIJ cordis w/ swan @48 CI 2.27 PAP 29/15 CVP 7. Left A-line. Lines zeroed and leveled. left and right PIV patent and intact. Amio drip
infusing see Worklist for details.
[2024-12-02 21:43] LABS: Glucose - Point of Care 108 mg/dl (70-99)
--- NOTE | 2024-12-02 21:45 | PTCARENOTE ---
Patient washed w/ 4% CHG soap. leads and bedding changed.
[2024-12-03] VITALS (27 sets, daily range): BP systolic 95–155; BP diastolic 60–134; BMI 32.1
--- NOTE | 2024-12-03 00:10 | PTCARENOTE ---
Patient reassessed. A. Fib BP 124/77 HR 99 POX 94% 4L NC. CI 1.93 CT PA Kadeem notified.
[2024-12-03 03:55] LABS: Hematocrit 30.3 % (39.0-52.0); Hemoglobin 10.3 g/dL (13.0-18.0); Mean Corpuscular Hgb 29.4 pg (27.0-31.0); Mean Corpuscular Volume 86.6 fL (80.0-94.0); Mean Platelet Volume 11.2 fL (7.4-10.4); Platelet Count 125 10^3/uL (130-400); Red Cell Dist. Width 14.8 % (11.5-14.5); White Blood Cell Count 14.4 10^3/uL (4.8-10.8)
[2024-12-03 04:01] LABS: Fibrinogen 672 MG/DL (199-459); INR 1.22; PT 15.9 Sec (11.4-14.6)
[2024-12-03 04:02] LABS: ALT (SGPT) 19 U/L (0-50); AST (SGOT) 21 U/L (17-59); Albumin 2.7 g/dl (3.5-5.0); Alkaline Phosphatase 71 U/L (38-126); Blood Urea Nitrogen 21 mg/dl (9-20); Calcium 8.5 mg/dl (8.4-10.2); Carbon Dioxide 21 mmol/L (22-30); Chloride 106 mmol/L (98-107); Estimated Creatinine Clearance 65 ml/min; Glucose 114 mg/dl (70-99); Potassium 4.7 mmol/L (3.5-5.1); Sodium 134 mmol/L (135-145); Total Bilirubin 1.9 mg/dl (0.2-1.3); Total Protein 4.9 g/dl (6.3-8.2); eGFR 55.43
[2024-12-03 04:04] LABS: D-Dimer 0.63 ug/mlFEU (0.00-0.50)
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
[2024-12-03 04:12] LABS: Blood Urea Nitrogen 21 mg/dl (9-20); Calcium 8.5 mg/dl (8.4-10.2); Carbon Dioxide 19 mmol/L (22-30); Chloride 106 mmol/L (98-107); Estimated Creatinine Clearance 65 ml/min; Glucose 115 mg/dl (70-99); Magnesium 2.3 mg/dl (1.6-2.3); Potassium 4.7 mmol/L (3.5-5.1); Sodium 135 mmol/L (135-145); eGFR 55.43
--- NOTE | 2024-12-03 04:30 | PTCARENOTE ---
Converted from A. Fib to sinus rhythm.
[2024-12-03 05:36] LABS: B.E. -4.3 mmol/L; HCO3 19.2 mmol/L (21-28); PCO2 29 mmHg (35-48); PO2 88 mmHg (83-108); pH 7.43 (7.35-7.45)
[2024-12-03 05:49] LABS: O2 Therapy 4L
[2024-12-03] MEDS: TYLENOL PO (06:04)
[2024-12-03] MEDS: SYNTHROID PO (06:04)
[2024-12-03] MEDS: NOVOLOG FLEXPEN-MODERATE RESISTANCE SC ×2 (07:01→18:01)
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
--- NOTE | 2024-12-03 08:15 | PTCARENOTE ---
Resumed care of patient. Walking rounds completed with previous RN. Pt assessed while he was lying in bed. Pt alert and oriented x4. Denies pain, shortness of breath, and nausea. COX with equal strength in all extremities. NSR on tele with rates in
the 70s. BP 125/60. Heart tones audible. Bilateral radial and pulses palpable. Generalized edema noted. Impella at P3. CI 2.28. PA pressures 30s/10s. CVP 7. POX 96% on 4L NC, titrated to 2L NC, POX 94%. Lungs diminished in the bases. Mediastinal
chest tubes x2 y-sited to 1 atrium to -20cm suction draining serosanguineous fluid. No air leaks, tidaling, crepitus. Occasional nonproductive cough noted. Abdomen soft, round, nontender. +BS. Schnedier draining adequate amounts of clear yellow urine.
Sternal incision covered with Aquacel-CDI. Impella site covered with gauze, CDI, @35cm. CT dressing CDI. Right groin puncture site approximated, LEDY. Right SVG harvest approximated, PHLEBOTOMIST MEDICAL LAB ASSISTANT. Right IJ cordis intact with swan floated to 48cm. Left radial
que intact. All lines flushed, leveled, zeroed. Right AC 18g PIV, Left AC 20g PIV. See MAR for medication administration. See worklist for complete nursing assessment. Plan of care reviewed and pt in agreement.
--- NOTE | 2024-12-03 08:16 | PN.DE.MGMTRT ---
Insulin Management
- -
12/03/2024: Diabetes Management follow up
64 year old male was admitted on 11/24/2024 for exertional chest pain and ruled in for NSTEMI.
PMH: CAD/SC/PCI 2007, ICM, HTN, HLD, CKD, hypothyroidism, Obesity and T2DM.
[facility] reported significant triple-vessel coronary disease with echo confirming acute on chronic HF R EF (20-25%). P
Prior to admission was taking Metformin 1000 mg BID, Jardiance 25mg daily, repaglinide 0.5mg TID and Trulicity 0.75mg weekly.
A1C 6.6%, Cr 1.4-->1.5, eGFR 51.03 today.
Patient awake, alert, oriented, resting in bed, nsg staff at bedside, settling pt after OR procedure, pt offers no complaints.
POD # 3 s/p central placement of IMPELLA 5.5 LVAD/CABG x 3
Pt was NPO for OR this morning for removal of IMPELLA 5.5 LVAD. Diet to be resumed this afternoon.
Transitioned off glycemic protocol yesterday and glucose remained stable and in range of 141 to 156, FBG 115 V this AM.
Will make no changes to current regimen: Metformin 1000mg BID, Prandin 0.5mg TID and Farxiga 10mg daily- was taking Jardiance 25mg daily at home
Will cont to follow and make further dose adjustments if necessary. Discussed with nurse.
Pt states he does not have a glucose monitor and does not test his blood sugar at home
Will ask Diabetes RN Educator ti see pt and provide monitor instructions.
Diabetes History
- -
Type of Diabetes: 2
Pre-Admission Diabetes Regimen
12/03/24 12/03/24
03 03:22
Creatinine 1.4 H 1.4 H
Lab Results
Hemoglobin A1c 6.6 % (4.0-5.6) H 11/24/24 11:31
Insulin Pump Settings
IP Diabetes Regimen
12/02/24 12/02/24 12/02/24
09:50 12:08 13:11
Glucose
POC Glucose 149 H 119 H 92
12/02/24 12/02/24 12/02/24
14:15 15:39 18:08
Glucose
POC Glucose 146 H 141 H 156 H
12/02/24 12/03/24 12/03/24
21:42 03:22 03:22
Glucose 114 H 115 H
POC Glucose 108 H
Meal type: Lunch
Meal type: Breakfast
Amount consumed: 50%
Amount consumed: 25%
Patient Education
[2024-12-03] MEDS: LIDOCAINE 4% PATCH TOPICAL (08:40)
[2024-12-03] MEDS: PROTONIX 40 MG PO (08:40)
[2024-12-03] MEDS: BACTROBAN 2% OINTMENT 1 APPLIC NASAL ×2 (08:40→19:30)
[2024-12-03] MEDS: FEOSOL 325 MG PO (08:40)
[2024-12-03] MEDS: NEURONTIN 100 MG PO ×3 (08:40→22:58)
[2024-12-03] MEDS: LIPITOR 80 MG PO (08:40)
[2024-12-03 08:43] LABS: Glucose - Point of Care 152 mg/dl (70-99)
--- NOTE | 2024-12-03 08:50 | PTCARENOTE ---
Pt transported to [facility] for impella explant.
--- NOTE | 2024-12-03 09:34 | W.IMMPOSTOP ---
Surgical Immed Post Op Note
-
[id number]
CARDIAC SURGERY OPERATIVE NOTE:
Preoperative Dx:
POD#3 s/p median sternotomy/ CPB w/ subsequent placement of 10mm hemashield graft on distal right-side of ascending aorta/Institution of Impella Support (P-3; 2.5L/min) w/ concurrent wean from CPB support/Aortotomy w/ direct, central placement of
IMPELLA 5.5 LVAD/CABG x 3 (HUI to LAD, GSV to OM, GSV to RPDA)/Endoscopic harvest/prep of RLE GSV/ KIMBERLY Clip (45 mm AtriClip)
Postoperative Dx:
Same
Procedure:
1) Removal of Impella 5.5 LVAD
Surgeon:
Garrett Martinez M.D.
Cannon Pinion Adjuster:
Kristal Allan P.A.-C.; first line production supervisor throughout
Anesthesia:
Yohannse Guajardo M.D. and Ravinder Hodges, C.R.N.A.
Findings:
Impella 5.5 weaned from P-3 to P-1 without change in hemodynamics/filling pressures
Hemashield graft bathed in betadine solution
Impella to P-0 with subsequent removal w/o resistance w/ digital control of hemashield graft
Hemashield graft back-bleed and subsequently controlled w/ 4 large surgical clips, resected, and oversewn w/ 5-0 prolene
Graft incision closed - sterile dressings placed
Complications:
None
Condition:
Stable/guarded to CVICU
84 sinus (0.1/-0.2), 134/69; 47/18; CVP 11; 96%
GTTS: amiodarone 0.5
Anesthesia planning for OR extubation
--- NOTE | 2024-12-03 10:00 | PTCARENOTE ---
Pt received from CVOR. Pt extubated. Alert and oriented x4. Denies pain, shortness of breath, and nausea. COX with equal strength throughout. NSR with 1st degree AVB on tele with rates in the 70s. BP stable 145/65. Heart tones audible. Bilateral
radial and DP pulses palpable. Generalized trace edema. CI 2.56 PA pressures 30s/10s. CVP 8. POX 94% on 10L facemask. Titrated to 6L NC, POX 94%. Lungs diminished in the bases. IS encouraged-1500ml achieved. Mediastinal chest tubes x2 y-sited to 1
atrium to -20cm suction draining serous fluid. No air leaks, tidaling, crepitus noted. Abdomen soft, round, nontender. Hypoactive BS. Schneider catheter draining adequate amounts of clear yellow urine. Sternal incision covered with Aquacel-CDI. Right
upper chest old impella site covered with Aquacel-CDI. CT dressing CDI. Right groin puncture site approximated, PSYCHIATRY TEACHER. Right SVG harvest approximated with skin glue, PSYCHIATRY TEACHER. Right IJ cordis and swan floated to 48cm. Left AC 18g PIV and Right AC 20g PIV
intact. NSS KVO x2 infusing. Amio gtt infusing, orders to d/c, completed. New dressing applied to cordis & swan. See MAR for medication administration. See worklist for complete nursing assessment. Plan of care reviewed and patient in agreement.
[2024-12-03 10:21] LABS: B.E. -5.8 mmol/L; HCO3 19.5 mmol/L (21-28); Hematocrit 30.6 % (39.0-52.0); Hemoglobin 10.3 g/dL (13.0-18.0); Ionized Calcium 1.16 mMOL/L (1.15-1.33); PCO2 37 mmHg (35-48); PO2 84 mmHg (83-108); Platelet Count 149 10^3/uL (130-400); Sodium 130 mMOL/L (136-145); pH 7.33 (7.35-7.45)
[2024-12-03 10:22] LABS: Glucose - Point of Care 187 mg/dl (70-99)
[2024-12-03 10:25] LABS: Mixed Venous O2 Saturation 54.8 %
[2024-12-03 10:28] LABS: O2 Saturation % 95.5 % (94-98)
[2024-12-03 10:38] LABS: Blood Urea Nitrogen 22 mg/dl (9-20); Glucose 182 mg/dl (70-99); Magnesium 2.2 mg/dl (1.6-2.3)
[2024-12-03 10:39] LABS: INR 1.25; PT 16.2 Sec (11.4-14.6)
[2024-12-03 10:40] LABS: APTT 34.7 Sec (23.4-35.0)
[2024-12-03] MEDS: ANCEF 10 IV (10:42)
[2024-12-03] MEDS: NSS IV (10:43)
--- NOTE | 2024-12-03 11:00 | CM ---
CM following for DC planning needs.
Met w/ patient at bedside. Pt. feels well post Impella explant.
DC goal is for home w/ CT Transitional Care RN.
CM to cont. to follow.
[2024-12-03] MEDS: PRANDIN PO (11:03)
[2024-12-03] MEDS: GLUCOPHAGE 1000 MG PO ×2 (11:14→18:01)
[2024-12-03] MEDS: SENOKOT-S 1 TABLET PO ×2 (11:14→19:29)
[2024-12-03] MEDS: CALCIUM GLUCONATE 100 IV (11:14)
[2024-12-03] MEDS: LOW STRENGTH ASPIRIN 81 MG PO (11:14)
[2024-12-03] MEDS: FARXIGA 10 MG PO (11:14)
[2024-12-03] MEDS: VITAMIN C 500 MG PO (11:14)
[2024-12-03] MEDS: PACERONE 200 MG PO ×3 (11:14→22:58)
[2024-12-03] MEDS: PLAVIX 75 MG PO (11:14)
[2024-12-03 11:44] LABS: Estimated Creatinine Clearance 71 ml/min
--- NOTE | 2024-12-03 12:00 | PTCARENOTE ---
Pt reassessed. NSR with 1st degree AVB on tele with rates in the 70s. BP 132/73. POX 96% on 6L, titrated to 4L NC, POX 95%. Surgical sites stable. CT output WNL. Schneider draining adequate amounts of clear yellow urine.
[2024-12-03] MEDS: NOVOLOG FLEXPEN-MODERATE RESISTANCE 1 UNITS SC (13:21)
[2024-12-03] MEDS: PRANDIN 0.5 MG PO ×2 (13:21→18:01)
[2024-12-03] MEDS: TYLENOL 1000 MG PO ×2 (13:21→22:58)
[2024-12-03 13:25] LABS: Glucose - Point of Care 171 mg/dl (70-99)
--- NOTE | 2024-12-03 15:30 | PTCARENOTE ---
Pt reassessed. Resting comfortably in bed. Denies pain, nausea, shortness of breath. NSR on tele with rates in the 70s. BP 116/65. POX 91% on 3L NC. Surgical sites stable. CT output WNL. Marques draining adequate amounts of clear yellow urine. Sandrita,
swan, and marques d/c per orders. Pt tolerated. No other acute changes.
--- NOTE | 2024-12-03 16:12 | W.PN.CD ---
Today's Communication / Plan
-
Furosemide 40 mg IV x 1.
Transition to PO amiodarone.
Impression / Plan
-
Impression/Plan: 64M with CAD (STEMI with BMS to pRCA 2007), ICM s/p [employer] ICD, hypertension, dyslipidemia, type 2 diabetes mellitus, CKD, and hypothyroidism admitted with NSTEMI, found to have severe, multivessel CAD.
Outpatient dietary aide cook: Dr. Fonseca
#NSTEMI/multivessel CAD
-Acute on chronic/progressive.
-Troponin peaked at 1.380 (11/25/2024).
-BMS to pRCA (2007).
-s/p CABG x 3 (HUI to LAD, GSV to OM, GSV to RPDA) and LAAE (#45 AtriClip), by Dr. Martinez, 11/30/24.
-Impella removed this morning.
-High dose, high potency statin.
-Continue aspirin 81 mg daily.
-Furosemide 40 mg IV x1 and monitor.
#HFrEF
-Acute on chronic.
-EF 20-25%
-Suspect ischemic, could be mixed.
-LVEF was 45-50% in 2007 post STEMI.
-GDMT as tolerated:
-FELA/ARB/ARNI: On hold.
-SGLT2 inhibitor: On hold.
-Aldosterone agonist: Can consider when appropriate.
-Beta adiel: Restart when possible.
-Isosorbide/Hydralazine:�can try to add as able --would do last.
-ICD: Implanted ([employer]).
-Furosemide 40 mg IV x1 monitor.
#Екатерина-operative AF
-Acute, new diagnosis.
-Currently in NSR.
-Rate/rhythm control with amiodarone gtt. Transition to PO amiodarone.
-CHADS2-Vasc = 4 (CHF, Age x1, DM, Vascular Disease).
-S/P LAAE (#45 AtriClip).
-Hold anticoagulation at this time.
-AF may be driven by volume overload.
-Consider monitor at discharge to assess AF burden in ambulatory setting.
#CKD
-Chronic, stable.
-Baseline Cr 1.5.
-Continue to monitor.
#Dyslipidemia
-Chronic, stable.
-Continue high dose statin.
-Goal LDL at least <55.
#NIDDM2 with hyperglycemia Hgb A1c 6.6
-Chronic, stable.
-Controlled. HbA1c = 6.6%.
-Resume metformin tomorrow.
-Patient would benefit from transitioning from dulaglutide to semaglutide or tirzepatide as an outpatient.
#Ventricular tachycardia, post STEMI 2007, on beta-adiel
Critical Care Time = 38 minutes.
Subjective/Interval History:
Febrile to 38.1 last night (12/02/2024 @ 21:00-22:59).
D-Dimer up to 0.63 this morning.
Impella removed in OR this morning.
Platelets have normalized.
AF converted to NSR.
SaO2 = 915 on 3LNC.
Weight up an additional 1.4 kg (107.2 <-- 105.8).
CI 2.32.
DATA:
Coronary angiography November 24, 2024:
CONCLUSIONS
1. Triple-vessel coronary artery disease with subtotally occluded LAD, likely client relations representative of a prior infarct, moderate serial RCA stenoses, and iFR positive stenosis in a large OM1. Given the patient's young age and diabetic status, surgical
revascularization may be preferable and he was taken off the table for CT surgical consultation. Percutaneous revascularization would be feasible and complete revascularization could be achieved percutaneously with moderate complexity.
2. Moderately elevated LV filling pressure and no aortic stenosis.
TTE November 24, 2024:
CONCLUSIONS
Moderately dilated LV with severely reduced systolic function.
LVEF is 20-25% by Lindsay's method of discs.
LAD territory hypo-/akinesis with global diffuse hypokinesis.
Stage I diastolic dysfunction suggestive of abnormal relaxation.
Normal right ventricular size and function.
No significant valvular disease.
Estimated pulmonary artery pressure of 25-30 mmHg. Assuming a right atrial
pressure of 3 mmHg.
Compared to prior from June 23, 2008, EF is now severely reduced at 20-25%,
previously normal, and with new wall motion abnormalities discussed above.
Intraoperative GILMAR, 11/30/2024:
CONCLUSIONS
Severe LV dysfunction. Overall LVEF calculates to 21% by Lindsay's rule.
Moderate concentric left ventricular hypertrophy.
Stage I Diastolic dysfunction.
Severely dilated left atrium.
Moderately dilated right atrium.
Trace aortic insufficiency.
Aortic sclerosis without stenosis.
Mild tricuspid regurgitation.
Estimated pulmonary artery systolic pressure of 30-35 mmHg.
Trace mitral regurgitation.
Mild sessile atheroma seen in the descending aorta and distal arch.
POST OPERATIVE FINDINGS
The patient underwent a CABG, KIMBERLY clipping, and placement of an Impella 5.5.
Postop rhythm remains sinus. RV function appears normal. LV appears
decompressed with improved wall motion. Overall LVEF appears to be
approximately 30-35%. The Impella is in good position with no obstruction of
the inflow or outflow. The distance from the LV inflow to the AV measures 5.4
cm. Mild AI is noted around the Impella. Mild central MR. Trace TR. PV
appears normal. The LA appendage has been adequately clipped with no color
Doppler distal to the clip. Aortic scan is unchanged.
Physical Exam
Vital Signs/Labs
Vital Signs
Temp Pulse Resp BP Pulse Ox
36.9 C 73 21 116/65 89
12/03/24 15:00 12/03/24 15:45 12/03/24 15:30 12/03/24 15:00 12/03/24 15:45
12/02/24 12/03/2412/04/25
11:59 11:59 11:59
Actual Weight 105.8 kg 107.2 kg
12/03/24 10:11
12/03/24 10:11
PT 16.2 Sec (11.4-14.6) H 12/03/24 10:11
INR 1.25 12/03/24 10:11
APTT 34.7 Sec (23.4-35.0) 12/03/24 10:11
Magnesium 2.2 mg/dl (1.6-2.3) 12/03/24 10:11
Triglycerides 187 mg/dl (10-149) H 11/25/24 02:44
LDL Cholesterol, Calc 60 mg/dl 11/25/24 02:44
VLDL Cholesterol, Calc 37 mg/dl (0-30) H 11/25/24 02:44
HDL Cholesterol 24 mg/dl 11/25/24 02:44
11/24/24
11:31
Rbh-D-Omarzyrbign Pept 3840
Physical Exam
Constitutional: No acute distress and Comfortable
EENT: Anicteric and Moist mucous membranes
Cardiovascular: Rhythm & rate is regular, Pedal edema is absent, JVD pressure is normal, S1S2 is normal and Murmur/rub/gallop absent
Respiratory: Respiratory effort normal and Other (Decreased throughout.)
GI: Soft, Distention absent, Flat, Non tender and Normal bowel sounds
Neuro/Psych: Other (Asleep.)
Data Reviewed
-
Date of Service: December 03, 2024
Medical Decision Making: Reviewed Test Results, Independent Historian Assessment and Test Interpretation
EKG: Tracing Personally Visualized and interpreted and Report Reviewed by me
Echo: Report Reviewed by me
X-Ray/CT/US/MRI/NUC/PET: Image Personally Visualized and interpreted and Report Reviewed by me
Medical Tests (PFT, Pathology etc): Report Reviewed by me
Labs: Labs Reviewed by me
Old Records: Reviewed
[2024-12-03 18:03] LABS: Glucose - Point of Care 147 mg/dl (70-99)
--- NOTE | 2024-12-03 19:45 | PTCARENOTE ---
Patient received from RN @1900. Patient sitting comfortably in chair w/ call serrano in reach. AOx3 w/ flat affect. NSR w/ first degree heart block. BP 130/76 HR 77. Heart sounds audible. Generalized trace edema noted. Radial and pedal pulses
present. Lungs clear bilaterally and diminished in the bases. POX 95% 3L NC. IS 2000. 2x mediastinal chest tubes set to -20 wall suction draining serosanguineous fluid WNL. No crepitus, tidaling, or air leaks noted. Bowel sounds normoactive.
Voiding clear yellow urine. RIJ cordis patent and intact. Right and left AC PIV patent and intact. Sternal Aquacel dressing dry and intact. Chest tube dressing dry and intact. Right neck Aquacel dressing dry and intact. Right groin puncture
approximated and intact. Right knee incision approximated and intact.
[2024-12-03 23:05] LABS: Glucose - Point of Care 120 mg/dl (70-99)
[2024-12-04] VITALS (9 sets, daily range): BP systolic 110–143; BP diastolic 66–81; O2SAT 94; BMI 31.4
--- NOTE | 2024-12-04 00:17 | PTCARENOTE ---
Patient assessment unchanged. NSR w/ first degree heart block. BP 117/66 HR 79 POX 98% 3L NC. Patient had small amount of incontinence while ambulating to the bathroom.
--- NOTE | 2024-12-04 04:34 | PTCARENOTE ---
Labs drawn. patient assessment unchanged. NSR w/ first degree heart block. BP 138/74 HR 76 POX 91% RA.
[2024-12-04 04:56] LABS: Hematocrit 28.8 % (39.0-52.0); Hemoglobin 9.5 g/dL (13.0-18.0); Mean Corpuscular Hgb 28.6 pg (27.0-31.0); Mean Corpuscular Volume 86.7 fL (80.0-94.0); Mean Platelet Volume 11.7 fL (7.4-10.4); Platelet Count 171 10^3/uL (130-400); Red Blood Cell Count 3.32 10^6/uL (4.70-6.10); Red Cell Dist. Width 14.4 % (11.5-14.5); White Blood Cell Count 14.3 10^3/uL (4.8-10.8)
[2024-12-04 05:14] LABS: Blood Urea Nitrogen 35 mg/dl (9-20); Calcium 8.5 mg/dl (8.4-10.2); Carbon Dioxide 22 mmol/L (22-30); Chloride 104 mmol/L (98-107); Estimated Creatinine Clearance 61 ml/min; Glucose 117 mg/dl (70-99); Magnesium 2.4 mg/dl (1.6-2.3); Potassium 4.9 mmol/L (3.5-5.1); Sodium 135 mmol/L (135-145); eGFR 51.03
--- NOTE | 2024-12-04 06:00 | PTCARENOTE ---
CHG cloth bath performed. leads and gown changed. Patient OOB in chair.
[2024-12-04] MEDS: TYLENOL 1000 MG PO (06:22)
[2024-12-04] MEDS: SYNTHROID 137 MCG PO (06:22)
[2024-12-04] MEDS: NOVOLOG FLEXPEN-MODERATE RESISTANCE SC ×3 (07:22→17:32)
--- NOTE | 2024-12-04 07:32 | W.PN.CD ---
Today's Communication / Plan
-
Furosemide 40 mg IV x1.
Start dapagliflozin 10 mg daily.
Restart metoprolol succinate 25 mg daily late today vs. tomorrow, after some diuresis.
If BP remains stable, consider restarting lowest dose sacubitril-valsartan vs. valsartan 12.5 mg daily.
Consider outpatient monitor to assess AF burden.
Impression / Plan
-
Impression/Plan: 64M with CAD ([facility] ICM s/p [employer] ICD, hypertension, dyslipidemia, type 2 diabetes mellitus, CKD, and hypothyroidism admitted with NSTEMI, found to have severe, multivessel CAD.
Outpatient antisqueak worker: Dr. Fonseca
#NSTEMI/multivessel CAD
-Acute on chronic/progressive.
-Troponin peaked at 1.380 (11/25/2024).
-[facility] ([facility]
-s/p CABG x 3 (HUI to LAD, GSV to OM, GSV to RPDA) and LAAE (#45 AtriClip), by Dr. Martinez, 11/30/24.
-Impella removed 12/03/2024.
-High dose, high potency statin.
-Continue aspirin 81 mg daily.
-Furosemide 40 mg IV x1 and monitor.
#HFrEF
-Acute on chronic.
-EF 20-25%
-Suspect ischemic, could be mixed.
-LVEF was 45-50% in 2007 post STEMI.
-GDMT as tolerated:
-FELA/ARB/ARNI: On hold.
-SGLT2 inhibitor: Start dapagliflozin 10 mg daily in lieu of home empagliflozin 25 mg daily.
-Aldosterone agonist: Can consider when appropriate.
-Beta adiel: Consider metoprolol succinate after some diuresis.
-Isosorbide/Hydralazine:�can try to add as able --would do last.
-ICD: Implanted ([employer]).
-Furosemide 40 mg IV x1 monitor.
#Екатерина-operative AF
-Acute, new diagnosis.
-Currently in NSR.
-Rate/rhythm control with amiodarone gtt. Transition to PO amiodarone.
-CHADS2-Vasc = 4 (CHF, Age x1, DM, Vascular Disease).
-S/P LAAE (#45 AtriClip).
-Hold anticoagulation at this time.
-AF may be driven by volume overload.
-Consider monitor at discharge to assess AF burden in ambulatory setting.
#CKD
-Chronic, stable.
-Baseline Cr 1.5.
-Continue to monitor.
#Dyslipidemia
-Chronic, stable.
-Continue high dose statin.
-Goal LDL at least <55.
#NIDDM2 with hyperglycemia Hgb A1c 6.6
-Chronic, stable.
-Controlled. HbA1c = 6.6%.
-Resume metformin tomorrow.
-Patient would benefit from transitioning from dulaglutide to semaglutide or tirzepatide as an outpatient.
#Ventricular tachycardia, post STEMI 2007, on beta-adiel
Subjective/Interval History:
Impella removed in OR yesterday.
Weight down 2.2 kg from yesterday.
CI 2.32 L/min/m2 yesterday (post Impella removal). [place] pulled.
SaO2 = 91% on RA.
DATA:
Coronary angiography November 24, 2024:
CONCLUSIONS
1. 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 Given the patient's young age and diabetic status, surgical
revascularization may be preferable and he was taken off the table for CT surgical consultation. Percutaneous revascularization would be feasible and complete revascularization could be achieved percutaneously with moderate complexity.
2. Moderately elevated LV filling pressure and no aortic stenosis.
TTE November 24, 2024:
CONCLUSIONS
Moderately dilated LV with severely reduced systolic function.
LVEF is 20-25% by Lindsay's method of discs.
LAD territory hypo-/akinesis with global diffuse hypokinesis.
Stage I diastolic dysfunction suggestive of abnormal relaxation.
Normal right ventricular size and function.
No significant valvular disease.
Estimated pulmonary artery pressure of 25-30 mmHg. Assuming a right atrial
pressure of 3 mmHg.
Compared to prior from June 23, 2008, EF is now severely reduced at 20-25%,
previously normal, and with new wall motion abnormalities discussed above.
Intraoperative GILMAR, 11/30/2024:
CONCLUSIONS
Severe LV dysfunction. Overall LVEF calculates to 21% by Lindsay's rule.
Moderate concentric left ventricular hypertrophy.
Stage I Diastolic dysfunction.
Severely dilated left atrium.
Moderately dilated right atrium.
Trace aortic insufficiency.
Aortic sclerosis without stenosis.
Mild tricuspid regurgitation.
Estimated pulmonary artery systolic pressure of 30-35 mmHg.
Trace mitral regurgitation.
Mild sessile atheroma seen in the descending aorta and distal arch.
POST OPERATIVE FINDINGS
The patient underwent a CABG, KIMBERLY clipping, and placement of an Impella 5.5.
Postop rhythm remains sinus. RV function appears normal. LV appears
decompressed with improved wall motion. Overall LVEF appears to be
approximately 30-35%. The Impella is in good position with no obstruction of
the inflow or outflow. The distance from the LV inflow to the AV measures 5.4
cm. Mild AI is noted around the Impella. Mild central MR. Trace TR. PV
appears normal. The LA appendage has been adequately clipped with no color
Doppler distal to the clip. Aortic scan is unchanged.
Physical Exam
Vital Signs/Labs
Vital Signs
Temp Pulse Resp BP Pulse Ox
36.6 C 74 17 138/74 91
12/04/24 04:00 12/04/24 04:15 12/04/24 04:00 12/04/24 04:00 12/04/24 04:00
12/02/24 12/03/24 12/04/24
11:59 11:59 11:59
Actual Weight 105.8 kg 107.2 kg 105 kg
12/04/24 04:27
12/04/24 04:27
PT 16.2 Sec (11.4-14.6) H 12/03/24 10:11
INR 1.25 12/03/24 10:11
APTT 34.7 Sec (23.4-35.0) 12/03/24 10:11
Magnesium 2.4 mg/dl (1.6-2.3) H 12/04/24 04:27
Triglycerides 187 mg/dl (10-149) H 11/25/24 02:44
LDL Cholesterol, Calc 60 mg/dl 11/25/24 02:44
VLDL Cholesterol, Calc 37 mg/dl (0-30) H 11/25/24 02:44
HDL Cholesterol 24 mg/dl 11/25/24 02:44
11/24/24
11:31
Zml-W-Pslgcrapoov Pept 3840
Physical Exam
Constitutional: No acute distress and Comfortable
EENT: Anicteric and Moist mucous membranes
Cardiovascular: Rhythm & rate is regular, JVD pressure is normal, Pedal edema present (1+ bilateral LE's.), S1S2 is normal and Murmur/rub/gallop absent
Respiratory: Respiratory effort normal, Lungs clear to auscul., Wheeze Absent, Crackles Absent and Rhonchi Absent
GI: Soft, Distention absent, Flat, Non tender and Normal bowel sounds
Neuro/Psych: AO x 3
Data Reviewed
-
Date of Service: December 04, 2024
Medical Decision Making: Reviewed Test Results, Independent Historian Assessment and Test Interpretation
EKG: Tracing Personally Visualized and interpreted and Report Reviewed by me
Echo: Report Reviewed by me
X-Ray/CT/US/MRI/NUC/PET: Image Personally Visualized and interpreted and Report Reviewed by me
Medical Tests (PFT, Pathology etc): Image Personally Visualized and interpreted and Report Reviewed by me
Labs: Labs Reviewed by me
Old Records: Reviewed
--- NOTE | 2024-12-04 08:00 | PTCARENOTE ---
Resumed care of patient from previous RN. OOB in chair at time of assessment. AAOx3 w/ flat affect. NSR HR 80s. VSS. pulses present. 94% RA. lungs diminished at bases. IS 2000. 2x mediastinal chest tubes set to -20 wall suction draining
serosanguineous. orders to d/c this AM. +bs BRP. RIJ cordis patent and intact. Right and left AC PIV patent. All surgical sites c/d/i.
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
--- NOTE | 2024-12-04 08:33 | PN.DE.MGMTRT ---
Insulin Management
- -
12/04/2024: Diabetes Management follow up
64 year old male was admitted on 11/24/2024 for exertional chest pain and ruled in for NSTEMI.
PMH: CAD/PA/PCI 2007, ICM, HTN, HLD, CKD, hypothyroidism, Obesity and T2DM.
[facility] reported significant triple-vessel coronary disease with echo confirming acute on chronic HF R EF (20-25%). P
Prior to admission was taking Metformin 1000 mg BID, Jardiance 25mg daily, repaglinide 0.5mg TID and Trulicity 0.75mg weekly.
A1C 6.6%, Cr 1.4-->1.5, eGFR 51.03 today.
Patient awake, alert, oriented, sitting up in chair, offers no complaints, able to discuss diabetes care plan, -mich at bedside, very supportive.
POD # 4 s/p central placement of IMPELLA 5.5 LVAD/CABG x 3
Transitioned off glycemic protocol 12/02. Glucose stable and in range of 147 to 187, FBG 117 V this AM.
Will make no changes to current regimen: Metformin 1000mg BID, Prandin 0.5mg TID and Farxiga 10mg daily- was taking Jardiance 25mg daily at home
Will cont to follow and make further dose adjustments if necessary. Discussed with nurse.
Pt states he does not have a glucose monitor and does not test his blood sugar at home, he was seen by the Diabetes RN Educator and was provided a glucose monitor with instructions.
Diabetes History
- -
Type of Diabetes: 2
Pre-Admission Diabetes Regimen
12/03/24 12/03/24 12/04/24
10:11 10:11 04:27
Creatinine 1.3 Cancelled 1.5 H
Lab Results
Hemoglobin A1c 6.6 % (4.0-5.6) H 11/24/24 11:31
Insulin Pump Settings
IP Diabetes Regimen
12/03/24 12/03/24 12/03/24
08:41 10:11 10:13
Glucose 182 H
POC Glucose 152 H 187 H
12/03/24 12/03/24 12/03/24
13:20 18:00 23:03
Glucose
POC Glucose 171 H 147 H 120 H
12/04/24
04:27
Glucose 117 H
POC Glucose
Meal type: Dinner
Amount consumed: 60%
Patient Education
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
[2024-12-04] MEDS: FARXIGA 10 MG PO (09:29)
[2024-12-04] MEDS: LOW STRENGTH ASPIRIN 81 MG PO (09:29)
[2024-12-04] MEDS: PLAVIX 75 MG PO (09:29)
[2024-12-04] MEDS: GLUCOPHAGE 1000 MG PO ×2 (09:29→17:15)
[2024-12-04] MEDS: PROTONIX 40 MG PO (09:30)
[2024-12-04] MEDS: SENOKOT-S 1 TABLET PO ×2 (09:30→19:22)
[2024-12-04] MEDS: PRANDIN 0.5 MG PO ×3 (09:30→17:22)
[2024-12-04] MEDS: NEURONTIN 100 MG PO ×2 (09:30→17:15)
[2024-12-04] MEDS: VITAMIN C 500 MG PO (09:30)
[2024-12-04] MEDS: LIPITOR 80 MG PO (09:30)
[2024-12-04] MEDS: BACTROBAN 2% OINTMENT 1 APPLIC NASAL (09:31)
[2024-12-04] MEDS: PACERONE 200 MG PO ×3 (09:31→21:08)
[2024-12-04] MEDS: LIDOCAINE 4% PATCH TOPICAL (09:31)
[2024-12-04] MEDS: FEOSOL 325 MG PO (09:31)
[2024-12-04] MEDS: NSS IV (09:32)
[2024-12-04] MEDS: LASIX 40 MG IV (11:47)
[2024-12-04] MEDS: LOPRESSOR 25 MG PO ×2 (11:48→19:22)
[2024-12-04] MEDS: TYLENOL PO ×3 (13:48→21:12)
[2024-12-04 13:58] LABS: Glucose - Point of Care 96 mg/dl (70-99)
--- NOTE | 2024-12-04 15:12 | CM ---
CM following for DC planning needs.
DC plan remains for home w/ CT Transitional Care RN.
CM to cont. to follow for support and DC needs.
[2024-12-04] MEDS: REGLAN 10 MG IV (17:14)
--- NOTE | 2024-12-04 17:33 | PTCARENOTE ---
walked hallways x5 times today. very steady on feet. stairs done by cardiac rehab. minimal pain reported.
--- NOTE | 2024-12-04 20:30 | PTCARENOTE ---
Patient received from RN @ 1900. Patient lying in bed comfortably w/ call serrano in reach. AOx3 NSR w/ first degree heart block. BP 117/66. HR 78. Heart sounds audible. Radial and pedal pulses present. generalized trace anasarca noted. Lungs
clear and diminished in basses bilaterally. IS 2000. POX 93% RA. Voiding clear yellow urine. Bowel sounds normoactive. Sternal dressing dry and intact. Right neck dressing dry and intact. CT dressing dry and intact. Right groin well
approximated LEDY. Right knee well approximated RN MEDICATION. Right PIV patent and intact.
[2024-12-04] MEDS: NEURONTIN PO ×2 (21:08→21:12)
[2024-12-04] MEDS: MELATONIN 5 MG PO (21:08)
[2024-12-04 21:18] LABS: Glucose - Point of Care 63 mg/dl (70-99)
[2024-12-04 21:45] LABS: Glucose - Point of Care 68 mg/dl (70-99)
[2024-12-04 22:06] LABS: Glucose - Point of Care 79 mg/dl (70-99)
--- NOTE | 2024-12-04 22:08 | PTCARENOTE ---
Patient blood sugar 63. CT LACEY Quan notified. 4oz fruit juice given. Blood sugar checked 15 min later. Blood sugar 68. 4oz fruit juice given blood sugar rechecked 15 min later. Blood sugar 79.
[2024-12-05] VITALS (8 sets, daily range): BP systolic 117–140; BP diastolic 69–83; PULSE 73; O2SAT 96–98; BMI 30.6
[2024-12-05 00:12] LABS: Glucose - Point of Care 75 mg/dl (70-99)
--- NOTE | 2024-12-05 00:32 | PTCARENOTE ---
Patient reassessed. Loose BM noted. VSS NSR w/ first degree heart block. BP 117/74 HR 71 POX 95% RA. Blood sugar rechecked and WNL.
[2024-12-05 02:33] LABS: Glucose - Point of Care 70 mg/dl (70-99)
[2024-12-05 04:02] LABS: Hematocrit 27.3 % (39.0-52.0); Hemoglobin 9.3 g/dL (13.0-18.0); Mean Corp Hgb Conc. 34.1 g/dL (33.0-37.0); Mean Corpuscular Hgb 29.6 pg (27.0-31.0); Mean Corpuscular Volume 86.9 fL (80.0-94.0); Mean Platelet Volume 10.9 fL (7.4-10.4); Platelet Count 251 10^3/uL (130-400); Red Blood Cell Count 3.14 10^6/uL (4.70-6.10); Red Cell Dist. Width 14.8 % (11.5-14.5); White Blood Cell Count 11.4 10^3/uL (4.8-10.8)
[2024-12-05 04:06] LABS: Blood Urea Nitrogen 38 mg/dl (9-20); Calcium 7.9 mg/dl (8.4-10.2); Carbon Dioxide 21 mmol/L (22-30); Chloride 109 mmol/L (98-107); Estimated Creatinine Clearance 61 ml/min; Glucose 81 mg/dl (70-99); Potassium 3.8 mmol/L (3.5-5.1); Sodium 139 mmol/L (135-145); eGFR 51.03
--- NOTE | 2024-12-05 04:24 | PTCARENOTE ---
Patient assessment unchanged. VSS. Labs drawn.
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
[2024-12-05] MEDS: TYLENOL 1000 MG PO (06:49)
[2024-12-05] MEDS: SYNTHROID 137 MCG PO (06:49)
[2024-12-05 06:55] LABS: Glucose - Point of Care 86 mg/dl (70-99)
--- NOTE | 2024-12-05 07:56 | PTCARENOTE ---
Patient received from textiles printer resting oob in chair, AAO x 3, states pain controlled at this time. NSR via cm, SaO2 @ 96% on RA. All procedural sites stable. Patient updated to plan of care for the day, in agreeement - expresses desire to go home
today. See work list for full assessment and interventions performed.
[2024-12-05] MEDS: NOVOLOG FLEXPEN-MODERATE RESISTANCE SC (09:08)
[2024-12-05] MEDS: VITAMIN C 500 MG PO (09:17)
[2024-12-05] MEDS: FEOSOL 325 MG PO (09:17)
[2024-12-05] MEDS: LOPRESSOR 25 MG PO (09:17)
[2024-12-05] MEDS: SENOKOT-S PO (09:17)
[2024-12-05] MEDS: COZAAR 12.5 MG PO (09:17)
[2024-12-05] MEDS: LOW STRENGTH ASPIRIN 81 MG PO (09:18)
[2024-12-05] MEDS: PACERONE 200 MG PO (09:18)
[2024-12-05] MEDS: PROTONIX 40 MG PO (09:18)
[2024-12-05] MEDS: FARXIGA 10 MG PO (09:18)
[2024-12-05] MEDS: PLAVIX 75 MG PO (09:18)
[2024-12-05] MEDS: NEURONTIN 100 MG PO (09:18)
[2024-12-05] MEDS: LIPITOR 80 MG PO (09:18)
[2024-12-05] MEDS: LIDOCAINE 4% PATCH TOPICAL (09:19)
[2024-12-05] MEDS: NSS IV (09:26)
[2024-12-05] MEDS: GLUCOPHAGE PO (10:44)
[2024-12-05 10:45] LABS: Glucose - Point of Care 83 mg/dl (70-99)
[2024-12-05] MEDS: PRANDIN PO (10:45)
--- NOTE | 2024-12-05 12:00 | PTCARENOTE ---
VS obtained, assessment stable. Patient resting comfortably oob, at bedside. LACEY Florentino in room for d/c info. Patient awaiting d/c order.
--- NOTE | 2024-12-05 12:05 | W.[place]-PDMP ---
[place]-PDMP
-
Checked the [place]- Prescription Drug Monitoring Program website, no red flags identified; safe to proceed with prescription.
--- NOTE | 2024-12-05 12:05 | W.DCSUMMARY ---
Discharge Summary
Discharge Data
Date of Admission: 11/24/24
Date of Discharge: 12/05/24
-
Pending Results: No
Hospital Course
Primary care physician:
OLIVIA Stoddard
Outpatient gravity meter observer:
Dr. Fonseca
Inpatient consultants:
Dr. Garcia
Procedures:
1. 11/24/2024 left heart catheterization, coronary angiography, and iFR LCx
2. 11/30/2024: CABG x 3 (HUI to LAD, GSV to OM, GSV to RPDA), placement of 10 mm Hemashield graft on distal
right-side of ascending aorta, placement of Impella Support (P-3; 2.5L/min)
3. 12/04/2024: Removal of Impella Support in OR.
Primary Diagnosis:
1. NSTEMI
2. MVCAD
3. h/o STEMI with BMS to pRCA in 2007
4. Cardiomyopathy w/ reduced LVEF (20-25%) - ischemic/mixed
5. AICD ([employer]).
6. HTN
7. HLD.
8. Type II DM.
9. CKD.
10. Hypothyroidism
Secondary Diagnoses:
1. Same
2. postop AF
HPI: 64-year-old male with past medical history significant for CAD s/p STEMI with BMS to RCA in 2007, cardiomyopathy, ICD, HTN, dyslipidemia, type 2 diabetes, CKD, and hypothyroidism presented to [facility] with complaints of sudden chest
pain. He was working in the yard today and felt a sudden onset of severe chest discomfort. he states he had a similar episode a day prior while lifting mulch. He called EMS who gave him aspirin and sublingual nitroglycerin. Upon arrival to the
emergency room patient was started on a heparin infusion and was taken to the cardiac Food Safety Scientist for left heart cath. Left heart cath revealed multivessel disease and CT surgery was consulted for surgical evaluation.
Hospital course: The patient was taken to the operative suite on 11/30/2024 and underwent coronary artery bypass grafting x 3 and placement of Impella support as noted above in the procedures. He tolerated the procedure well and was transferred to
the CVICU in stable condition on epinephrine, Levophed, Precedex, and insulin.He was able to be extubated later that afternoon. Overnight he was weaned off his epinephrine and on postop day 1 he was out of bed to the chair. He did have frequent
episodes of bigeminy and amiodarone bolus was given. On postop day 2 the patient developed atrial fibrillation for which he received amiodarone bolus x 2 with institution of drip and subsequent return to normal sinus rhythm. His pleural chest
tubes were discontinued. Postop day 3 the patient went back to the operating room for removal of his Impella device. He was extubated in the OR his [place] was removed in the OR and he was returned to the CVICU in stable condition. His amiodarone
drip was converted to p.o. amiodarone. Postop day 4 his mediastinal chest tubes were removed and the patient was progressing nicely. Losartan was added on postop day 5 he was gently diuresed his metoprolol was changed to Toprol XL and it was felt
that he could safely be discharged home. During his postoperative course his kidney function remained around baseline of about 1.5. Endocrinology has been consulted for management of blood sugars and ultimately he was discharged on his
preoperative home regimen. He was given explicit instructions on wound care physical activity and diet. He will follow-up with cardiology and cardiac surgery as scheduled and should follow-up with his primary care physician as needed.
Home medication changes:
changed metoprolol from tartrate to succinate 50mg daily.
discontinued Entresto until seen by Cardiology
Added Lasix 40mg daily and KCl 20meq daily for one week, Protonix for one month, oxycodone as needed.
Started Amiodarone 200mg bid, Plavix 75mg daily, and Losartan 12.5mg daily
Continued other preop meds.
Discharge Plan
-
Patient Disposition: Home (Routine Discharge)
Discharge Diagnosis/Procedures: CABG x 3, left atrial appendage clip, central Imella
Diet: Low Cholesterol, Low Sodium and Diabetic, Carb Controlled
Activity: No strenuous activity
Driving Restrictions: Not until seen by your Dr
Bathing Restrictions: OK to Shower
Other Services: Cardiac Rehab
Specialty Instructions: Weigh Daily- Call MD for wt gain/loss 3 lbs overnight/5 lbs in 1 week
Referrals:
CT Transitional Care Nurse [Outside]
(
The Cardiothoracic Transitional Care Nurse will call you to set up a visit in 1-2 days.)
[facility] [Outside] - 01/11/25 8:30 am
(Cardiac Rehab Orientation appointment is on 01/11/25 8:30 AM
The Cardiac Rehab gym is located on the first floor of the [facility].)
Michael Fonseca DO [Non-Admitting Privileges] - 01/14/25 11:20 am
Pastor Lea MD [Active] - ( follow-up pulmonary nodule-repeat CT chest in 6 months)
Akira Blair CRNP [Family Provider] -
Kiara Restrepo CRNP [Specified Professional Personl] - 01/06/25 1:30 pm
Prescriptions:
New
losartan 25 mg Tablet
12.5 mg PO DAILY Qty: 30 1RF
amiodarone 200 mg tablet
200 mg PO BID Qty: 60 1RF
clopidogrel 75 mg Tablet
75 mg PO DAILY Qty: 30 2RF
pantoprazole 40 mg Tablet,Delayed Release (Dr/Ec)
40 mg PO DAILY Qty: 30 0RF
metoprolol succinate 50 mg Tablet Extended Release 24 Hr
50 mg PO DAILY Qty: 30 2RF
oxycodone 5 mg Tablet
2.5 - 5 mg PO Q4HPRN PRN (Reason: moderate-severe pain) Qty: 20 0RF
acetaminophen 325 mg Tablet
650 mg PO Q4HPRN PRN (Reason: mild pain,headache,temp >101F ) Qty: 0 0RF
potassium chloride 20 mEq Tablet,Er Particles/Crystals
20 meq PO DAILY 7 Days Qty: 7 0RF
furosemide 40 mg Tablet
40 mg PO DAILY 7 Days Qty: 7 0RF
Continued
levothyroxine [Synthroid] 137 mcg Tablet
137 mcg PO DAILY
atorvastatin [Lipitor] 80 mg Tablet
80 mg PO DAILY
acetaminophen [Tylenol] 325 mg Tablet
650 mg PO Q6HPRN PRN (Reason: mild pain)
aspirin 81 mg Tablet,Delayed Release (Dr/Ec)
81 mg PO DAILY
repaglinide 0.5 mg Tablet
0.5 mg PO AC
metformin 1,000 mg Tablet
1,000 mg PO BID
Jardiance 25 mg Tablet
25 mg PO DAILY
Trulicity 0.75 mg/0.5 mL Pen Injector
0.75 mg SC TH
Discontinued
metoprolol tartrate 50 mg Tablet
50 mg PO BID
Entresto 97-103 mg Tablet
1 tab PO BID
Discharge Orders:
Discharge Patient (As Directed); Ordered 12/05/24
Ordered By: William Florentino
Care Plan Goals
Care Plan Goals:
Problem: Readiness for enhanced knowledge related to diagnosis and treatment plan
Goal: Understand your diagnosis and treatment plan needs, including medications if applicable.
Instructions: Know your diagnosis, underlying causes and treatment plan options, including medications if applicable. Consult with your health care team to learn about your diagnosis and treatment plan, including medications if applicable.
Discharge Date and Time
Discharge Date/Time: 12/05/24 13:42
Print Language: TAJIK
--- NOTE | 2024-12-05 12:54 | PTCARENOTE ---
Patient set up to shower, completed independently. Discharge instructions thoroughly reviewed w/patient and spouse, all questions answered. PIV x 2 removed. Patient and all belongings transported to waiting vehicle for d/c home with spouse.
== END 2024-12-05 13:42 | disposition home or self-care (01) | DRG 1 ==
LOC: CVICU 12:54
PROVIDERS: Anesthesiology; Clinical Nurse Specialist Acute Care; Internal Medicine; Nurse Practitioner; Nurse Practitioner Adult Health; Nurse Practitioner Gerontology; Physician Assistant; Physician Assistant Medical; Registered Nurse; Student in an Organized Health Care Education/Training Program; ADMITTING PHYSICIAN Hospitalist; ATTENDING PHYSICIAN Thoracic Surgery (Cardiothoracic Vascular Surgery); CONSULT PHYSICIAN Internal Medicine Cardiovascular Disease; CONSULT PHYSICIAN Internal Medicine Critical Care Medicine; CONSULT PHYSICIAN Thoracic Surgery (Cardiothoracic Vascular Surgery); EMERGENCY PHYSICIAN Emergency Medicine; FAMILY PHYSICIAN Nurse Practitioner Family
PROC: B2111ZZ Fluoroscopy of Multiple Coronary Arteries using Low Osmolar Contrast (ICD-10-PCS; 2024-11-24)
PROC: 4A023N7 Measurement of Cardiac Sampling and Pressure, Left Heart, Percutaneous Approach (ICD-10-PCS; 2024-11-24)
PROC: B2151ZZ Fluoroscopy of Left Heart using Low Osmolar Contrast (ICD-10-PCS; 2024-11-24)
PROC: 4A033BC Measurement of Arterial Pressure, Coronary, Percutaneous Approach (ICD-10-PCS; 2024-11-24)
PROC: 06BP4ZZ Excision of Right Saphenous Vein, Percutaneous Endoscopic Approach (ICD-10-PCS; 2024-11-30)
PROC: 02100ZC Bypass Coronary Artery, One Artery from Thoracic Artery, Open Approach (ICD-10-PCS; 2024-11-30)
PROC: 5A0221D Assistance with Cardiac Output using Impeller Pump, Continuous (ICD-10-PCS; 2024-11-30)
PROC: 02HA0RZ Insertion of Short-term External Heart Assist System into Heart, Open Approach (ICD-10-PCS; 2024-11-30)
PROC: B24BZZ4 Ultrasonography of Heart with Aorta, Transesophageal (ICD-10-PCS; 2024-11-30)
PROC: 5A1221Z Performance of Cardiac Output, Continuous (ICD-10-PCS; 2024-11-30)
PROC: X2HX0F9 Insertion of Conduit to Short-term External Heart Assist System into Thoracic Aorta, Ascending, Open Approach, New Technology Group 9 (ICD-10-PCS; 2024-11-30)
PROC: 021109W Bypass Coronary Artery, Two Arteries from Aorta with Autologous Venous Tissue, Open Approach (ICD-10-PCS; 2024-11-30)
PROC: 02PW3RZ Removal of Short-term External Heart Assist System from Thoracic Aorta, Descending, Percutaneous Approach (ICD-10-PCS; 2024-12-03)
DX: I21.4 Non-ST elevation (NSTEMI) myocardial infarction (principal); I50.23 Acute on chronic systolic (congestive) heart failure; R57.0 Cardiogenic shock; I13.0 Hypertensive heart and chronic kidney disease with heart failure and stage 1 through stage 4 chronic kidney disease, or unspecified chronic kidney disease; N17.9 Acute kidney failure, unspecified; D62 Acute posthemorrhagic anemia; I42.8 Other cardiomyopathies; J98.11 Atelectasis; E87.1 Hypo-osmolality and hyponatremia; I47.19 Other supraventricular tachycardia; I25.10 Atherosclerotic heart disease of native coronary artery without angina pectoris; E78.00 Pure hypercholesterolemia, unspecified; E11.22 Type 2 diabetes mellitus with diabetic chronic kidney disease; E03.9 Hypothyroidism, unspecified; E11.65 Type 2 diabetes mellitus with hyperglycemia; I25.5 Ischemic cardiomyopathy; R91.1 Solitary pulmonary nodule; I48.91 Unspecified atrial fibrillation; E66.811 Obesity, class 1; N18.31 Chronic kidney disease, stage 3a; D69.59 Other secondary thrombocytopenia; E86.1 Hypovolemia; E87.70 Fluid overload, unspecified; I44.0 Atrioventricular block, first degree; I08.3 Combined rheumatic disorders of mitral, aortic and tricuspid valves; I25.2 Old myocardial infarction; Z68.30 Body mass index [BMI] 30.0-30.9, adult; Z79.84 Long term (current) use of oral hypoglycemic drugs; Z79.899 Other long term (current) drug therapy; Z82.49 Family history of ischemic heart disease and other diseases of the circulatory system; Z95.5 Presence of coronary angioplasty implant and graft; Z95.810 Presence of automatic (implantable) cardiac defibrillator
CPT/HCPCS: 71045; 71046; 71250; 76536; 80048; 80053; 80061; 81003; 81015; 82248; 82330; 82565; 82805; 82810; 82947; 82962; 83036; 83605; 83615; 83735; 83880; 84132; 84302; 84484; 84520; 85014; 85018; 85025; 85027; 85049; 85347; 85379; 85384; 85610; 85730; 86850; 86900; 86901; 86920; 87086; 93005; 93306; 93312; 93320; 93325; 93458; 93799; 93880; 93923; 93931; 94002; 99152; 99153; C1768; C1769; C1887; C1894; P9045; Q9950; Q9967

== ENCOUNTER 2025-01-13 10:24 | Outpatient (RCR) | payer OTHER, SELFPAY ==
[2025-01-11 10:23] LABS: Glucose - Point of Care 75 mg/dl (70-99)
[2025-01-11 10:46] LABS: Glucose - Point of Care 85 mg/dl (70-99)
[2025-01-11 11:05] LABS: Glucose - Point of Care 85 mg/dl (70-99)
[2025-01-13 09:39] LABS: Glucose - Point of Care 61 mg/dl (70-99)
[2025-01-13 10:14] LABS: Glucose - Point of Care 96 mg/dl (70-99)
== END 2025-01-13 23:59 | disposition home or self-care (01) ==
LOC: CRHB 10:24
PROVIDERS: ATTENDING PHYSICIAN Internal Medicine Cardiovascular Disease
DX: I25.10 Atherosclerotic heart disease of native coronary artery without angina pectoris (principal); Z95.1 Presence of aortocoronary bypass graft
CPT/HCPCS: 82962; 93798